=== PATIENT | male | born 1950 | race Caucasian/White ===

== ENCOUNTER 2024-03-06 09:43 | Inpatient (IN) | payer MEDICARE, SELFPAY ==
[2024-03-06] VITALS (12 sets, daily range): BP systolic 80–152; BP diastolic 42–117; PULSE 72–100; RESP 16–32; TEMP 36.6–37.2; O2SAT 88–100; BMI 41.5; BMI 46.9
--- NOTE | 2024-03-06 10:01 | EKG12_ITS ---
Test Reason : ABD PAIN Blood Pressure : / mmHG Vent. Rate : 073 BPM Atrial Rate : 073 BPM P-R Int : 160 ms QRS Dur : 090 ms QT Int : 374 ms P-R-T Axes : 024 -12 014 degrees QTc Int : 412 ms Normal sinus rhythm Low voltage QRS Possible Inferior infarct , age undetermined Abnormal ECG Confirmed by RACHEL GONZALES, MANUEL ([id number]), science editor MARU MO ([id number]) on 03/11/2024 10:04:20 AM Referred By: Confirmed By:JOELLE RAMOS MD
--- NOTE | 2024-03-06 10:20 | RAD_ITS ---
STUDY: X-RAY CHEST REASON FOR EXAM: Male, 73 years old. Hypoxia TECHNIQUE: Single AP portable view of the chest. COMPARISON: None. FINDINGS: EKG electrodes are seen. The lungs are clear and expanded. There is no demonstrated pleural abnormality. There is borderline cardiomegaly. Normal mediastinum and rob. Normal visualized pulmonary arteries. Normal visualized aortic arch and descending thoracic aorta. Normal visualized thoracic spine. 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 There is no demonstrated abnormality of the visualized soft tissue structures of the upper abdomen. RAD/Chest 1 View (Portable) IMPRESSION: Borderline cardiomegaly. No acute abnormality is seen. Electronically Signed: Alton Stephenson MD at 10:47 EDT ,
--- NOTE | 2024-03-06 10:20 | EDS_ITS ---
HPI History of Present Illness Chief Complaint: Abd Pain Informant: patient, family and EMS Narrative Narrative: 73-year-old male presenting from the emergency department with a chief complaint of fall. Patient states that last week he was experiencing diarrhea and he slipped and fell in his feces. He states he fell forward striking his face. No reported loss of consciousness. He was having significant bouts of diarrhea and weakness. The fall came just after the family did a welfare check after they could not get a hold of him because he was having diarrhea. Patient states that eventually over the weekend the diarrhea subsided and now he has not had a bowel movement since. He notes he also has not been urinating. He states he has been trying to eat meals consisting of pineapple apples and grapes. He states he ate that in an effort to hydrate himself. Patient states that his abdomen feels firmer than normal. 1 daughter stayed with him last night and noticed that his pulse ox was dropping into the 70s while sleeping and was around 89 while awake. It was better if he sat up. When asked if he is having abdominal pain the patient states I will call it diaphragm he cannot really elaborate more. He notes some soreness to the right hip and abrasion to the nose from the fall. PFSH [facility] Medical History Hypercholesterolemia Hypertension Morbid obesity Prediabetes Home Medications lisinopril 1 tab PO DAILY 03/06/24 [History Last Taken Unknown] metformin 1 tab PO BID 03/06/24 [History Last Taken Unknown] simvastatin 1 tab PO DAILY 03/06/24 [History Last Taken Unknown] Allergy/AdvReac Type Severity Reaction Status Date / Time No Known Allergies Allergy Verified 03/06/24 09:44 Family History (Updated 03/06/24 @ 14:[address] Aries Ryan DO) Other Alcoholism Surgical History no surgical history no surgical history Social History (Updated 03/06/24 @ 14:[address] Aries Ryan DO) Smoking Status: Never smoker substance use type: does not use ROS ROS ED ROS Narrative Generalized weakness Constitutional Constitutional ED: Denies chills or weight loss Eyes Eyes: Denies change in vision or diplopia ENT ENT ED: Denies ear pain, rhinorrhea or sore throat Cardiovascular Cardiovascular: Denies chest pain, orthopnea, palpitations or racing heartbeat Respiratory/Chest Respiratory/Chest: Reports other Details: Family reports that he seems more short of breath. ; Denies cough, dyspnea or orthopnea Gastrointestinal Gastrointestinal: Reports diarrhea and other Details: Abdominal distention ; Denies abdominal pain, nausea or vomiting Genitourinary Genitourinary ED: Reports other Details: No urination x 3 days ; Denies dysuria, hematuria or urinary frequency Musculoskeletal Musculoskeletal: Reports other Details: Right hip pain ; Denies arthralgias or myalgias Integumentary Reports other Details: Bridge of nose abrasion ; Denies abscess or rash Neurologic Neurologic: Denies headache(s) or weakness Psychiatric Psychiatric: Denies anxiety, depression, suicidal ideation or suicidal thoughts Endocrine Endocrinology: Denies polydipsia, polyphagia or polyuria Allergic/Immunologic Allergic/Immunologic ED: Denies mouth swelling, tongue swelling or urticaria EXAM Physical Exam Const Vital Signs: 03/06/24 09:45 03/06/24 09:50 03/06/24 09:50 Temperature 98.1 F 98.1 F 98.1 F Temperature Source Temporal Temporal Temporal Pulse Rate 76 79 79 Respiratory Rate 22 H 19 H 18 Blood Pressure 112/65 112/88 H 112/88 H Blood Pressure Mean 80 96 96 Pulse Ox 92 92 93 Oxygen Delivery Method Room Air Room Air Room Air 03/06/24 11:43 03/06/24 13:00 Temperature Temperature Source Pulse Rate 78 88 Respiratory Rate 18 16 Blood Pressure 112/55 L 148/72 H Blood Pressure Mean 74 97 Pulse Ox 96 99 Oxygen Delivery Method Room Air Positive well nourished, well developed and obese General Appearance ED: well developed Nutritional Appearance: obese HEENT Reports normocephalic and moist mucous membranes HEENT Narrative: Abrasion to the bridge of the nose Eyes PERRL and EOMs intact bilaterally Neck no lymphadenopathy, supple and no JVD Resp normal respiratory effort and clear to auscultation bilaterally Cardio regular rate, regular rhythm and no murmurs GI GI Narrative: Obesity limits the examination. There is an umbilical hernia that is soft and nontender Inspection: abdominal distention Palpation: soft Back/Spine no CVA tenderness and normal ROM Extremity Extremity Narrative: Patient reports some tenderness to palpation along the lateral aspect of the right hip General Extremety ED: Negative for edema General Extremity: Negative for edema Neuro oriented x3 and CN's II-XII intact bilaterally Sensorium / Orientation: alert Motor Exam: strength 5/5 throughout Psych mental status grossly normal Mood & Affect: Negative for depressed or tearful Skin no rashes or lesions noted and no wounds MDM MDM MDM Narrative Medical decision making narrative: Blood work was obtained shows a white count of 13 hemoglobin 13.9 sodium 132 potassium 5.1 creatinine substantially elevated 9.31 with a BUN of 146 glucose 123 AST of 111 ALT of 89 lipase of 46. I performed a bedside ultrasound which revealed a distended bladder up to the level of his umbilicus. Jeff catheter was placed. Urinalysis is 25-50 red cells no obvious infection. CT the brain showed no intracranial hemorrhage. My independent interpretation of the chest x-ray is no acute process. CT of the abdomen pelvis was obtained which demonstrates no acute intra-abdominal or injury. Diverticulosis noted intra- abdominal wall cellulitis/edema. This is not clinically fit the picture. Was noted to have distended renal collecting system bilaterally which is most likely from his obstructive uropathy which required a Jeff catheter. With the patient's hip pain I do not see an obvious hip fracture pelvic fracture proximal femur fracture on the CT. Patient received IV fluids. The plan is admission. History & Record Review Discussion w/independent historian: Patient and Family Lab Data Attestation: I reviewed the patient's lab results. Labs: Laboratory Results - last 24 hr 03/06/24 03/06/24 09:50 11:13 WBC 13.0 H RBC 5.05 Hgb 13.9 Hct 42.3 MCV 83.8 MCH 27.5 MCHC 32.9 RDW Std Deviation 47.5 H RDW Coeff of Eyal 15.6 H Plt Count 261 MPV 9.7 Immature Gran % (Auto) 2.200 H Neut % (Auto) 84.9 H Lymph % (Auto) 6.1 L Stanton % (Auto) 5.8 Eos % (Auto) 0.3 Baso % (Auto) 0.7 Absolute Neuts (auto) 11.0 H Absolute Lymphs (auto) 0.79 L Nucleated RBC % 0 Reactive Lymphocytes 1+ Sodium 132 L Potassium 5.1 Chloride 98 Carbon Dioxide 21.0 Anion Gap 13 BUN 146 H* Creatinine 9.31 H* Estim Creat Clear Calc 9.62 Est GFR (MDRD) Af Amer 7 L Est GFR (MDRD) Non-Af 6 L BUN/Creatinine Ratio 15.7 Glucose 123 H Calcium 8.2 L Phosphorus 4.7 Magnesium 2.8 H Total Bilirubin 0.80 Direct Bilirubin 0.32 H AST 111 H ALT 89 H Alkaline Phosphatase 86 Troponin I High Sens 12 B-Natriuretic Peptide 26.3 Total Protein 6.4 Albumin 2.3 L Globulin 4.1 Lipase 46 Urine Color Yellow Urine Clarity Clear Urine pH 5.0 Ur Specific [place] 1.020 Urine Protein 15 H Urine Glucose (UA) Normal Urine Ketones Negative Urine Occult Blood 250 H Urine Nitrite Negative Urine Bilirubin 1 H Urine Urobilinogen Normal Ur Leukocyte Esterase 25 H Urine RBC 10-25 SEEN Urine WBC 0-5 SEEN Ur Squamous Epith Cells 0 SEEN Urine Bacteria 0 SEEN Urine Mucus 0 SEEN Radiography Diagnostic Testing: Clinical Impression(s) from Imaging Studies Chest X-Ray 03/06/24 10:20 IMPRESSION: Borderline cardiomegaly. No acute abnormality is seen. Electronically Signed: Alton Stephenson MD at 10:47 EDT , Brain CT 03/06/24 10:38 IMPRESSION: No acute intracranial abnormality. Electronically Signed: Jesus Mendoza MD at 13:13 EDT , Abdomen/Pelvis CT 03/06/24 10:47 IMPRESSION: 1. No evidence of acute intra-abdominal or pelvic injury. 2. Distended renal collecting system bilaterally likely related to chronic bladder outlet obstruction. 3. Prostatomegaly. 4. Diverticulosis coli. 5. Intra-abdominal wall cellulitis/edema. Electronically Signed: Jesus Mendoza MD at 13:27 EDT , EKG Initial EKG: Attestation: I personally reviewed and interpreted this EKG as follows: Comments: Normal sinus rhythm ventricular rate of 73 bpm Discharge Plan Triage Chief Complaint: Abd Pain ED Provider: Jesús Robles Dx/Rx/DC Orders Prescriptions: No Action simvastatin 1 tab PO DAILY metformin 1 tab PO BID lisinopril 1 tab PO DAILY Primary Care Provider: Sean Valencia Referrals: Sean Valencia MD [Primary Care Provider] -
[2024-03-06 10:22] LABS: Absolute Lymphocyte Count 0.79 X10^3/uL (0.83-4.51); Basophil# 0.09 X10^3/uL; Basophil% 0.7 % (0-1); Eosinophil# 0.04 X10^3/uL; Eosinophils% 0.3 % (0-5); Hematocrit 42.3 % (40-54); Hemoglobin 13.9 g/dL (13.0-16.5); Lymphocyte # 0.79 X10^3/ul (0.83-4.51); Lymphocyte % 6.1 % (19-41); Mean Corp Hgb Conc 32.9 g/dL (32-36); Mean Corpuscular Hgb 27.5 pg (27.0-32.0); Mean Corpuscular Volume 83.8 fL (80-94); Mean Platelet Vol. 9.7 fl (6.2-12.0); Monocyte# 0.75 X10^3/uL; Monocyte% 5.8 % (0-10); NRBC Flagged by Analyzer 0 % (0-5); Neutrophil # 11.02 X10^3/uL (2.7-7.7); Neutrophil % 84.9 % (47-70); POSITIVE MORPHOLOGY YES; Platelet Count 261 K/mm3 (150-450); RBC Distribution Width CV 15.6 % (11.6-14.6); RBC Distribution Width SD 47.5 fl (35.1-43.9); Red Blood Count 5.05 M/mm3 (4.6-6.2)
[2024-03-06 10:23] LABS: Differential Indicated SCAN CRITERIA MET
--- NOTE | 2024-03-06 10:38 | CT_ITS ---
EXAM: CT HEAD WITHOUT INTRAVENOUS CONTRAST CLINICAL INDICATION: trauma TECHNIQUE: Multiple axial images were obtained of the head without intravenous contrast. This CT exam was performed using one or more of the following dose reduction techniques: automated exposure control, adjustment of the mA and/or kV according to patient size, and/or use of iterative reconstruction technique. COMPARISON: No relevant prior studies available. FINDINGS: BRAIN AND EXTRA-AXIAL SPACES: Normal. Normal brain attenuation. No intra- or extra-axial hemorrhage. No acute infarct. No intracranial mass or mass effect. There is preservation of the dale/white matter interface. Posterior fossa structures are unremarkable. Ventricles are appropriate for age. No hydrocephalus. Basal cisterns are patent. BONES/JOINTS: Normal calvarium. SINUSES: No acute sinusitis. MASTOID AIR CELLS: Normal. Clear. CT/Brain/Head without Contrast IMPRESSION: No acute intracranial abnormality. Electronically Signed: Jesus Mendoza MD at 13:13 EDT ,
[2024-03-06 10:39] LABS: AST(SGOT) 111 U/L (15-37); Alanine Aminotransfer ALT/SGPT 89 U/L (16-61); Albumin, Serum 2.3 g/dL (3.2-5.0); Alkaline Phosphatase 86 U/L (45-117); Anion Gap 13 (5-15); BUN 146 mg/dL (7-18); BUN/Creat Ratio 15.7 RATIO (10-20); Bilirubin, Direct 0.32 mg/dL (0.00-0.30); Calcium,Total 8.2 mg/dL (8.5-10.1); Chloride 98 mmol/L (98-107); Creatinine, Serum 9.31 mg/dL (0.70-1.30); EST Glomerular Filtration Rate 6 mL/min (>60); Est Glom Filt Rate - Afr Amer 7 mL/min (>60); Estimated Creatinine Clearance 9.62 ml/min; Globulin 4.1 g/dL (2.2-4.2); Glucose 123 mg/dL (74-106); Lipase 46 U/L (13-75); Potassium 5.1 mmol/L (3.5-5.1); Protein, Total 6.4 g/dL (6.4-8.2); Sodium Level 132 mmol/L (136-145); Troponin-I HS 12 pg/mL (3.0-78.0)
[2024-03-06 10:46] LABS: Reactive Lymphocyte 1+
--- NOTE | 2024-03-06 10:47 | CT_ITS ---
EXAM: CT ABDOMEN AND PELVIS WITHOUT INTRAVENOUS CONTRAST CLINICAL INDICATION: urinary retention acute renal failure TECHNIQUE: Helically acquired images were obtained of the abdomen and pelvis without intravenous contrast. This CT exam was performed using one or more of the following dose reduction techniques: automated exposure control, adjustment of the mA and/or kV according to patient size, and/or use of iterative reconstruction technique. COMPARISON: No relevant prior studies available. FINDINGS: LOWER THORAX: Normal. Lung bases are clear. No cardiomegaly. No pericardial effusion. ABDOMEN: LIVER: Normal. Homogeneous. GALLBLADDER AND BILE DUCTS: Gallbladder is contracted consistent with a nonfasting state. PANCREAS: Normal. No focal cystic mass. SPLEEN: Normal. Normal size without focal cystic or solid mass. ADRENALS: Normal. No nodules. KIDNEYS AND URETERS: Mild distention of the renal collecting system noted bilaterally which may be related to bladder outlet obstruction. STOMACH AND BOWEL: Fat stranding noted along the mesentery of the left colon of uncertain significance. Extensive diverticulosis of the colon without focal wall thickening. PELVIS: APPENDIX: Appendix is visualized and normal in appearance. BLADDER: Jeff catheter in place within a decompressed urinary bladder. REPRODUCTIVE: The prostate gland is enlarged measuring 6.0 x 5.4 x 6.2 cm with a volume of 105.3 ml. ABDOMEN and PELVIS: INTRAPERITONEAL SPACE: Normal. No free air. No evidence of hemoperitoneum. BONES/JOINTS: Prominent degenerative changes are noted within the spine. SOFT TISSUES: Mild edema of the subcutaneous tissues of the anterior abdomen which may represent cellulitis normal heart, contusion. 5 cm fat-containing umbilical hernia is noted. VASCULATURE: Normal. Abdominal aorta is non-dilated. LYMPH NODES: Normal. No enlarged lymph nodes. CT/Abdomen/Pelvis without Cont IMPRESSION: 1. No evidence of acute intra-abdominal or pelvic injury. 2. Distended renal collecting system bilaterally likely related to chronic bladder outlet obstruction. 3. Prostatomegaly. 4. Diverticulosis coli. 5. Intra-abdominal wall cellulitis/edema. Electronically Signed: Jesus Mendoza MD at 13:27 EDT ,
[2024-03-06 11:10] LABS: Magnesium 2.8 mg/dL (1.6-2.6); Phosphorus 4.7 mg/dL (2.5-4.9)
[2024-03-06 11:16] LABS: Bacteria 0 SEEN /hpf (None Seen); Mucous, Urine 0 SEEN /hpf (<or=2+); Squamous Epithelial Cells - UA 0 SEEN /hpf (0-5)
[2024-03-06 11:21] LABS: Color, Urine Yellow (Yellow); Glucose, Dipstick Normal (Normal); Ketone-Dipstick Negative (Negative); Leukocyte Esterase-Dipstick 25 /ul (Negative); Nitrite-Dipstick Negative (Negative); Occult Blood-Urine 250 /ul (Negative); Protein-Dipstick 15 mg/dl (Negative); Urine Clarity Clear (Clear); Urine Urobilinogen Normal (Normal)
[2024-03-06 11:32] LABS: Urine Bilirubin Dipstick 1 mg/dL (Negative)
[2024-03-06 11:34] LABS: Red Blood Cells-Urine 10-25 SEEN /hpf (0-5); White Blood Cells 0-5 SEEN /hpf (0-5)
[2024-03-06 11:59] LABS: BNP,B-Type NATRIURETIC PEPTIDE 26.3 pg/mL (0-100)
--- NOTE | 2024-03-06 14:02 | NURSING ---
MED SURG INGA ACUTE RENAL FAILURE, OBSTRUCTIVE UROPOATHY
[2024-03-06] MEDS: 0.9% Normal Saline (1000mL) 1,000 ML 200 ML IV (14:07)
--- NOTE | 2024-03-06 14:14 | HP.PCM.HOS_ITS ---
[facility] - General General Date of Service: 03/06/24 Chief Complaint: Fall [facility] Narrative RISHI STRATTON, is a 73 M who presents with weakness. Last Monday, patient was having diarrhea, slipped on his feces and has been weak. Since this weekend, he has not urinated. He has had increased abdominal pain, shortness of breath due to the abdominal pain. With him being profoundly weak, the family sent him to the emergency room. In the emergency room, patient was noted to have a creatinine of 9.3, no baseline available in [facility]. Patient is not dialysis dependent. He does have reported history of BPH in the past. Patient did have a Jeff catheter placed after it was noted that he had profound collecting system dilation and BPH. Patient stated that after the catheter was placed, he had improved abdominal pain and shortness of breath. [facility] Medical History Hypercholesterolemia Hypertension Morbid obesity Prediabetes Home Medications lisinopril 1 tab PO DAILY 03/06/24 [History Last Taken Unknown] metformin 1 tab PO BID 03/06/24 [History Last Taken Unknown] simvastatin 1 tab PO DAILY 03/06/24 [History Last Taken Unknown] Allergy/AdvReac Type Severity Reaction Status Date / Time No Known Allergies Allergy Verified 03/06/24 09:44 Family History (Updated 03/06/24 @ 14:[address] Aries Ryan DO) Other Alcoholism Surgical History no surgical history Social History (Updated 03/06/24 @ 14:[address] Aries Ryan DO) Smoking Status: Never smoker substance use type: does not use ROS ROS Narrative Daughters present in the notes that he has periods where he has apneic episodes while he sleeps and his pulse ox will drop down into the 70s during these periods. He has never been diagnosed with sleep apnea. Sore throat. Did have some transient fever and chills. All review of systems were negative except as mentioned above in the history of present illness and the other review of systems. Vital Signs Vital Signs Vital Signs: 03/06/24 09:45 03/06/24 09:50 03/06/24 09:50 Temperature 36.7 C 36.7 C 36.7 C Temperature Source Temporal Temporal Temporal Pulse Rate 76 79 79 Respiratory Rate 22 H 19 H 18 Blood Pressure 112/65 112/88 H 112/88 H Blood Pressure Mean 80 96 96 Pulse Ox 92 92 93 Oxygen Delivery Method Room Air Room Air Room Air 03/06/24 11:43 03/06/24 13:00 Temperature Temperature Source Pulse Rate 78 88 Respiratory Rate 18 16 Blood Pressure 112/55 L 148/72 H Blood Pressure Mean 74 97 Pulse Ox 96 99 Oxygen Delivery Method Room Air Weight Weight: 127.5 kg Body Mass Index (BMI) 41.5 Physical Exam Const alert and no apparent distress Constitutional Narrative: Pleasant. Nontoxic. No respiratory distress no conversational dyspnea. HEENT normocephalic and head/scalp atraumatic HEENT Narrative: Mucous membranes moist. Mallampati 4. Eyes Eyes Narrative: No icterus. Neck no lymphadenopathy Neck Narrative: No thyromegaly Resp normal respiratory effort, no retractions, no use of accessory muscles and clear to auscultation bilaterally Cardio regular rate, regular rhythm, S1 normal heart sound and S2 normal heart sound GI normal to inspection, nondistended, normoactive bowel sounds, soft to palpation, non-tender and non-distended Extremity normal to inspection and full ROM Extremity Narrative: No sore over the right hip nor any skin changes. Neuro moves all extremities Sensorium / Orientation: awake and alert Psych affect normal Results Lab / Micro Data Attestation: I reviewed the patient's lab results. 03/06/24 09:50 03/06/24 09:50 Labs: Laboratory Results - last 24 hr 03/06/24 09:50: WBC 13.0 H, RBC 5.05, Hgb 13.9, Hct 42.3, MCV 83.8, MCH 27.5, MCHC 32.9, RDW Std Deviation 47.5 H, RDW Coeff of Eyal 15.6 H, Plt Count 261, MPV 9.7, Immature Gran % (Auto) 2.200 H, Neut % (Auto) 84.9 H, Lymph % (Auto) 6.1 L, [place] % (Auto) 5.8, Eos % (Auto) 0.3, Baso % (Auto) 0.7, Absolute Neuts (auto) 11.0 H, Absolute Lymphs (auto) 0.79 L, Nucleated RBC % 0, Reactive Lymphocytes 1+, Sodium 132 L, Potassium 5.1, Chloride 98, Carbon Dioxide 21.0, Anion Gap 13, BUN 146 H*, Creatinine 9.31 H*, Estim Creat Clear Calc 9.62, Est GFR (MDRD) Af Amer 7 L, Est GFR (MDRD) Non-Af 6 L, BUN/Creatinine Ratio 15.7, Glucose 123 H, Calcium 8.2 L, Phosphorus 4.7, Magnesium 2.8 H, Total Bilirubin 0.80, Direct Bilirubin 0.32 H, AST 111 H, ALT 89 H, Alkaline Phosphatase 86, Troponin I High Sens 12, B-Natriuretic Peptide 26.3, Total Protein 6.4, Albumin 2.3 L, Globulin 4.1, Lipase 46 03/06/24 11:13: Urine Color Yellow, Urine Clarity Clear, Urine pH 5.0, Ur Specific [place] 1.020, Urine Protein 15 H, Urine Glucose (UA) Normal, Urine Ketones Negative, Urine Occult Blood 250 H, Urine Nitrite Negative, Urine Bilirubin 1 H, Urine Urobilinogen Normal, Ur Leukocyte Esterase 25 H, Urine RBC 10-25 SEEN, Urine WBC 0-5 SEEN, Ur Squamous Epith Cells 0 SEEN, Urine Bacteria 0 SEEN, Urine Mucus 0 SEEN EKG Initial EKG: Attestation: I personally reviewed and interpreted this EKG as follows: Prior EKG tracings: available for review EKG Rhythm Intrepretation: Sinus Rhythm Imaging Radiology Impression Chest X-Ray 03/06/24 10:20 IMPRESSION: Borderline cardiomegaly. No acute abnormality is seen. Electronically Signed: Alton Stephenson MD at 10:47 EDT , Brain CT 03/06/24 10:38 IMPRESSION: No acute intracranial abnormality. Electronically Signed: Jesus Mendoza MD at 13:13 EDT , Abdomen/Pelvis CT 03/06/24 10:47 IMPRESSION: 1. No evidence of acute intra-abdominal or pelvic injury. 2. Distended renal collecting system bilaterally likely related to chronic bladder outlet obstruction. 3. Prostatomegaly. 4. Diverticulosis coli. 5. Intra-abdominal wall cellulitis/edema. Electronically Signed: Jesus Mendoza MD at 13:27 EDT , Assessment & Plan Assessment/Plan (1) JOSE C (acute kidney injury): (2) Urinary retention: (3) Debility: PLAN: Plan JOSE C * Suspect postobstructive due to BPH * Jeff catheter placed in emergency room and patient had had relief of his urinary obstruction. Patient stated that abdominal pain and shortness of breath improved thereafter. * Will give the patient IV fluids * Follow-up labs in the morning * consider nephrology consultation if does get worse. * Hold lisinopril and metformin Urinary retention * Likely secondary to BPH * Start tamsulosin * Continue Jeff catheter * Given the profound urinary obstruction the patient had I would be reluctant to remove the catheter while he was here even with the tamsulosin. But will def er to the oncoming physician at their discretion. * Certainly follow-up with urology as outpatient Debility * Multifactorial due to recent events with JOSE C, diarrhea as well as low progressive debility overall. * PT OT evaluate and treat * Case management to assist on discharge * discussed with patient as daughter could not arrange for him going home with outpatient therapy to home care versus [facility] facility. * Patient did fall and is having right hip pain. Will check x-ray. Chronic conditions * Hypertension: Hold lisinopril given JOSE C * Diabetes mellitus type 2: Check an A1c. Hold metformin given JOSE C. Sign scale insulin. * Hyperlipidemia: Resume statin once we get a dose that he takes at home. * Suspected JULIO: Advised outpatient follow-up with pulmonary to have a formal sleep assessment VTE prophylaxis with subcu heparin CODE STATUS: Addressed with the patient. Patient was to be full code. Charges/Coding Visit Charges Inpatient E&M: 54354 Init Hosp L3
--- NOTE | 2024-03-06 14:40 | RAD_ITS ---
STUDY: X-RAY - PELVIS AND RIGHT HIP REASON FOR EXAM: Male, 73 years old. Right hip pain TECHNIQUE: 3 views of the pelvis and hip. COMPARISON: None. FINDINGS: There is a non-specific bowel gas pattern. Normal visualized soft tissue structures. The general changes of the lower lumbar spine. Normal bilateral iliac wings, sacroiliac joints and visualized sacrum. Normal bilateral superior and inferior pubic rami. Normal pubic symphysis. Normal bilateral ischial tuberosities. Normal visualized femoral head. Normal acetabulum. Normal hip joint. RAD/HIP, UNI W/ Pelvis 2-3 Views IMPRESSION: No acute abnormality is seen. Electronically Signed: Alton Stephenson MD at 14:56 EDT ,
--- NOTE | 2024-03-06 15:48 | ED.RN ---
pt's daughter is concerned that pt is shivering, initial oral temp 98.0 and warm blankets applied for comfort for pt. pt has fluids infusing at 200cc/hr, pt's daughter alerted this nurse because pt's pulse ox was 0 and finger pulse ox fell off pt's finger, recheck temp orally 98.3. pulse ox 91%room air.
[2024-03-06 17:09] LABS: Bedside Glucose 109 mg/dL (74-106)
[2024-03-06] MEDS: 0.9% Normal Saline (1000mL) 1,000 ML 150 ML IV (17:21)
[2024-03-06] MEDS: Tamsulosin HCl 0.4 MG Capsule PO (17:23)
[2024-03-06 17:57] LABS: Hemoglobin A1c 6.8 % (3.8-5.6)
--- NOTE | 2024-03-06 23:05 | RAD_ITS ---
EXAM: XR CHEST, 1 VIEW CLINICAL INDICATION: worsening hypoxia TECHNIQUE: Frontal view of the chest. 11:14 PM. COMPARISON: Portable chest radiograph of this same date, 10:21 AM. Abdomen/pelvis CT of this date. FINDINGS: Lordotic positioning. LUNGS AND PLEURAL SPACES: Limited degree of inspiration. Increased density and an air bronchogram noted within the retrocardiac portion of the left lower lung. Right lung is clear. No pneumothorax. No effusion. HEART: Upper normal heart size. Supine patient positioning accentuates the upper lobe pulmonary vessels. MEDIASTINUM: Stable mild elongation of the thoracic aorta. BONES/JOINTS: Degenerative narrowing of both glenohumeral joints. Lower cervical degenerative disc space narrowing. Lower thoracic degenerative spurring. SOFT TISSUES: Unremarkable. RAD/Chest 1 View (Portable) IMPRESSION: Increased density within the retrocardiac portion of the left lower lung, most likely due to superimposed vascular shadows accentuated by positioning and technique, as no retrocardiac airspace disease was seen in this area on preceding CT. Developing pneumonia felt less likely. Follow-up PA and lateral views may be of benefit for further evaluation, when the patient is clinically stable. Electronically Signed: Gal Palma MD at 0:44 EDT ,
--- NOTE | 2024-03-06 23:05 | RAD_ITS ---
EXAM: XR ABDOMEN, 1 VIEW CLINICAL INDICATION: worsening abd distension TECHNIQUE: Frontal supine view of the abdomen/pelvis. COMPARISON: Abdomen pelvis CT of this date. FINDINGS: GASTROINTESTINAL TRACT: A moderate amount gas is noted throughout the colon; the colonic haustral folds within the ascending colon appears thickened, suggestive of a colitis. No distended large or small bowel loops are identified. No pneumatosis is seen. ORGANS: Unremarkable as visualized. No organomegaly. No abnormal calcifications. BONES/JOINTS: Lumbar levoscoliosis is present with extensive lower lumbar degenerative disc disease and facet arthritis. SOFT TISSUES: No acute pathology. RAD/Abdomen Single View (Portable) IMPRESSION: No evidence for large or small bowel obstruction. Gas within the ascending colon outlines haustral folds which appear asymmetrically thickened, suggestive of a right-sided colitis. Electronically Signed: Gal Palma MD at 0:37 EDT ,
[2024-03-06] MEDS: Heparin Injection (Vial) 5,000 UNIT/ML VIAL 5000 UNIT SC (23:44)
[2024-03-07] VITALS (34 sets, daily range): BP systolic 79–135; BP diastolic 30–90; PULSE 66–111; RESP 18–38; TEMP 36.6–37.5; O2SAT 91–100; BMI 47.5
[2024-03-07 00:04] LABS: Bedside Glucose 108 mg/dL (74-106)
--- NOTE | 2024-03-07 00:52 | NURSING ---
NURSING supv aware of low bp and dr order to move to unit will get bed assignment for pt
[2024-03-07] MEDS: Vancomycin HCl 2,000 MG in 0.9% Normal Saline (500mL Bag) 500 ML 250 MG IV (00:56)
--- NOTE | 2024-03-07 01:09 | PCM.RX.CS ---
Consult Antibiotic Management Pharmacy has been consulted to manage selected antibiotic: Vancomycin Type of Intervention Type of Consult: New start Labs Labs: Sodium 132 mmol/L (136-145) L 03/06/24 09:50 Potassium 5.1 mmol/L (3.5-5.1) 03/06/24 09:50 Chloride 98 mmol/L (98-107) 03/06/24 09:50 Carbon Dioxide 21.0 mmol/L (21.0-32.0) 03/06/24 09:50 Anion Gap 13 (5-15) 03/06/24 09:50 BUN 146 mg/dL (7-18) H* 03/06/24 09:50 Creatinine 9.31 mg/dL (0.70-1.30) H* 03/06/24 09:50 Est GFR (MDRD) Af Amer 7 mL/min (>60) L 03/06/24 09:50 Est GFR (MDRD) Non-Af 6 mL/min (>60) L 03/06/24 09:50 BUN/Creatinine Ratio 15.7 RATIO (10-20) 03/06/24 09:50 Glucose 123 mg/dL (74-106) H 03/06/24 09:50 Dosing Weight Weight used for dosin kg Estimated Creatinine Clearance Estimated Creatinine Clearance: 9.6 Goal Trough Goal Trough: 15-20 mcg/mL Pharmacy Plan for Drug Dosing Pharmacy Plan for Drug Dosing: Vancomycin IV was initiated with a 2000mg loading dose. Since his current CrCl< 20 (at 9.6), further dosing will be determined by a random vanco level to be drawn 03/08/24 with a.m. labs. Pharmacy Service will continue to monitor and adjust dosing as required. Follow-Up Labs Follow-Up Labs: Trough: Vancomycin (random) Date/Time Labs Ordered Labs to be done on [date and time ordered]: 03/08/24 @0600 random
[2024-03-07 01:26] LABS: Hemoglobin 12.2 g/dL (13.0-16.5); Mean Corpuscular Hgb 28.2 pg (27.0-32.0); Mean Corpuscular Volume 85.6 fL (80-94); Mean Platelet Vol. 10.2 fl (6.2-12.0); Platelet Count 251 K/mm3 (150-450); RBC Distribution Width CV 15.6 % (11.6-14.6); RBC Distribution Width SD 49.1 fl (35.1-43.9); Red Blood Count 4.32 M/mm3 (4.6-6.2); White Blood Count 8.2 K/mm3 (4.4-11.0)
--- NOTE | 2024-03-07 01:26 | NURSING ---
pt okay to call daughter to notify about transfer, Called and talked to Lynette (pt's daughter) to notify pt being transfer to ICU to monitor closely.
--- NOTE | 2024-03-07 01:42 | NURSING ---
report given to Iwona LAYNE
[2024-03-07 01:47] LABS: Anion Gap 8 (5-15); BUN 135 mg/dL (7-18); BUN/Creat Ratio 24.1 RATIO (10-20); Chloride 103 mmol/L (98-107); EST Glomerular Filtration Rate 11 mL/min (>60); Est Glom Filt Rate - Afr Amer 13 mL/min (>60); Estimated Creatinine Clearance 17.12 ml/min; Glucose 114 mg/dL (74-106); Potassium 4.7 mmol/L (3.5-5.1); Sodium Level 135 mmol/L (136-145)
[2024-03-07 01:51] LABS: Lactic Acid 1.8 mmol/L (0.4-1.9)
--- NOTE | 2024-03-07 02:59 | PCM.HOSP.N ---
Hospitalist Note Patient was admitted on the afternoon of 03/06 for worsening weakness and severe JOSE C with creatinine of 9.3 and uremia with BUN 146. Had known history of BPH and had Jeff catheter placed in the ED with significant urine output noted. Imaging showed profound collecting system dilation and BPH. Patient was started on IV fluids and admitted to [facility]. I was notified by nursing staff around 22:00 that patient's BP had dropped to the low 80s over 50s. He was still receiving maintenance IV fluids at that time. Nurse noted that he seemed more confused and at the beginning of the shift. I evaluated the patient at the bedside. He was sitting up in bed and appeared fairly comfortable. He was breathing comfortably on 3 L nasal cannula at rest. Was making appropriate eye contact with me and knew that he was at [facility] and that it was February 2024. He also knew that he lives at home by himself. He knew that he came to the hospital generally because he was feeling weaker but could not expand on that further. He also stopped midsentence multiple times and closes eyes and lost track of what he was talking about. He generally denied any abdominal pain or discomfort. Denied any fevers or chills. On exam, he did have mild wheezing in his upper airways as well as mild crackles noted in the mid to lower lungs. He also had mild to moderate abdominal distention and abdomen felt somewhat hard, though it was completely nontender to palpation. I obtained stat labs, stat chest x-ray and KUB at that time. Labs showed that his JOSE C was significantly improving with creatinine down to 5.60, though BUN remains elevated at 135. Lactate was normal at 1.8. CBC was normal. Chest x-ray appeared fairly benign. KUB showed no evidence for large or small bowel obstruction but did show gas within the ascending colon outlines that appear asymmetrically thickened suggestive of a right-sided colitis. Blood cultures were obtained and patient was started on IV vancomycin and Zosyn for broad-spectrum coverage for now. Patient continued to have low BP readings, with lowest of 79/47 despite fluid resuscitation. He was also noted to have a low-grade temperature at that time. Had concern about giving further IV fluids as his respiratory status was already starting to slightly worsen and he had very minimal urine output. So, decision was made to transfer patient to the ICU for further monitoring. On arrival to the ICU, patient was starting to appear improved and blood pressure was noted to be around 120/50 by nursing staff. Tool Builder consult placed. Will continue broad-spectrum antibiotics for now, follow up blood cultures and urine culture.
[2024-03-07] MEDS: Piperacil/Tazobactam 3.375 GM in 0.9% Normal Saline (50mL MB+) 50 ML IV ×3 (03:53→21:42)
[2024-03-07] MEDS: Heparin Injection (Vial) 5,000 UNIT/ML VIAL 5000 UNIT SC ×3 (05:37→21:38)
[2024-03-07 05:51] LABS: Absolute Lymphocyte Count 0.42 X10^3/uL (0.83-4.51); Absolute Neutrophil Count 7.5 X10^3/uL (2.0-7.7); Basophil# 0.06 X10^3/uL; Basophil% 0.7 % (0-1); Eosinophil# 0.03 X10^3/uL; Eosinophils% 0.3 % (0-5); Hematocrit 34.8 % (40-54); Hemoglobin 11.5 g/dL (13.0-16.5); Lymphocyte # 0.42 X10^3/ul (0.83-4.51); Lymphocyte % 4.6 % (19-41); Mean Corpuscular Hgb 27.6 pg (27.0-32.0); Mean Corpuscular Volume 83.5 fL (80-94); Mean Platelet Vol. 9.9 fl (6.2-12.0); Monocyte# 0.74 X10^3/uL; Monocyte% 8.1 % (0-10); NRBC Flagged by Analyzer 0 % (0-5); Neutrophil # 7.49 X10^3/uL (2.7-7.7); Neutrophil % 82.6 % (47-70); POSITIVE DIFFERENTIAL YES; Platelet Count 232 K/mm3 (150-450); RBC Distribution Width CV 15.8 % (11.6-14.6); RBC Distribution Width SD 47.5 fl (35.1-43.9); Red Blood Count 4.17 M/mm3 (4.6-6.2); White Blood Count 9.1 K/mm3 (4.4-11.0)
[2024-03-07 06:12] LABS: Anion Gap 8 (5-15); BUN 129 mg/dL (7-18); BUN/Creat Ratio 28.3 RATIO (10-20); Calcium,Total 7.7 mg/dL (8.5-10.1); Chloride 106 mmol/L (98-107); Creatinine, Serum 4.56 mg/dL (0.70-1.30); EST Glomerular Filtration Rate 14 mL/min (>60); Est Glom Filt Rate - Afr Amer 16 mL/min (>60); Estimated Creatinine Clearance 21.15 ml/min; Glucose 124 mg/dL (74-106); Potassium 4.6 mmol/L (3.5-5.1); Sodium Level 137 mmol/L (136-145)
--- NOTE | 2024-03-07 06:57 | PN.HOSP_ITS ---
Reason for Visit Reason for Visit: Fall Subjective Subjective Patient is a 73-year-old male who presented to the emergency department at [facility] on 03/06/2024 after having a fall. Patient reported that last week he was having some diarrhea and slipped and fell on feces. At that time he fell forward striking his face. He denied any loss of consciousness but has been having some severe bouts of diarrhea and weakness. Patient reported that eventually over the weekend the diarrhea subsided and he has not had a bowel movement since the weekend. He also noted that his urine output had been decreasing. He indicated he been trying to eat meals consisting of pineapple, apples, and grapes in an effort to hydrate himself but he felt that his abdomen felt firmer than normal. One of his daughter stayed with him the night prior to presentation and noted that his pulse ox was dropping in the 70s while he was sleeping and was around 89 while he was awake. It was better when he sat up. He felt that his shortness of breath sensation was related to his abdominal issues. Vital signs on presentation showed temperature of 36.7, heart rate was 76, blood pressure was 112/65, respiratory was 22 and oxygen saturations were 92% on room air. His CBC showed a leukocytosis with a white count of 13 and a left shift with an 84.9% neutrophilia but was otherwise unremarkable. His chemistry panel was markedly abnormal with a sodium of 132, BUN of 146 and a serum creatinine of 9.31. His baseline serum creatinine is unknown. An A1c was obtained as he was hyperglycemic on presentation and it was 6.8. It does appear that he is diabetic and takes metformin as an outpatient. His liver enzymes are mildly elevated with an AST of 111 and ALT of 89. Bilirubin was normal at that time. His UA showed 250 of occult blood 25 leuk esterase with no white cells or bacteria. He was initially placed on PCU and started on IV fluids after Jeff was placed. It did seem that he had significant urinary obstruction and his abdominal pain improved after. His lisinopril and metformin were placed on hold due to his renal dysfunction on presentation. Through the night the attorney was called due to blood pressures in the 80s systolic and 50s diastolic. Nursing thought he was more confused than he was at the beginning of the shift as well. He was requiring 3 L of nasal cannula and a lactate was obtained and found to be normal. His renal function was improving as well. Blood cultures were obtained due to the hypotension and was started on IV and vancomycin and Zosyn and transferred to the ICU due to persistent hypotension. After arriving to the ICU his blood pressures did start to improve without the utilization of pressors. Patient has no specific complaints today. When asked him about his abdominal pain he states that is a hard question to answer and was never able to give me a definitive answer. He is mildly confused but oriented to self and place with mild confusion on time. He was able to tell me the year but not the month. Discussed with nursing and they state that he is notably hypoxic when he is sleeping and has apneic events. I did ask the patient if he is ever been diagnosed with sleep apnea and he said yes but he is not compliant with CPAP and was not able to tell me why. Objective Data Objective Data Vital Signs: Vital Signs Temp Pulse Resp BP Pulse Ox O2 Del Method O2 Flow Rate 98.9 F 72 31 H 95/50 L 93 Nasal Cannula 4 03/07/24 04:00 03/07/24 06:00 03/07/24 06:00 03/07/24 06:00 03/07/24 06:00 03/07/24 06:00 03/07/24 06:00 Oxygen Flow Rate (L/min) 4 Oxygen Delivery Method Nasal Cannula Weight: 145.5 kg Body Mass Index (BMI) 47.5 Intake & Output: Intake and Output for Last 24 Hours 03/05/24 03/06/24 03/07/24 23:59 23:59 23:59 Intake Total 1200 / 1200 1540 / 1540 Output Total 450 / 850 1000 / 1000 Balance 750 / 350 540 / 540 Lab / Micro Data 03/07/24 07:50 03/07/24 05:40 Labs: Laboratory Results - last 24 hr 03/06/24 09:50: WBC 13.0 H, RBC 5.05, Hgb 13.9, Hct 42.3, MCV 83.8, MCH 27.5, MCHC 32.9, RDW Std Deviation 47.5 H, RDW Coeff of Eyal 15.6 H, Plt Count 261, MPV 9.7, Immature Gran % (Auto) 2.200 H, Neut % (Auto) 84.9 H, Lymph % (Auto) 6.1 L, [place] % (Auto) 5.8, Eos % (Auto) 0.3, Baso % (Auto) 0.7, Absolute Neuts (auto) 11.0 H, Absolute Lymphs (auto) 0.79 L, Nucleated RBC % 0, Reactive Lymphocytes 1+, Sodium 132 L, Potassium 5.1, Chloride 98, Carbon Dioxide 21.0, Anion Gap 13, BUN 146 H*, Creatinine 9.31 H*, Estim Creat Clear Calc 9.62, Est GFR (MDRD) Af Amer 7 L, Est GFR (MDRD) Non-Af 6 L, BUN/Creatinine Ratio 15.7, Glucose 123 H, Calcium 8.2 L, Phosphorus 4.7, Magnesium 2.8 H, Total Bilirubin 0.80, Direct Bilirubin 0.32 H, AST 111 H, ALT 89 H, Alkaline Phosphatase 86, Troponin I High Sens 12, B-Natriuretic Peptide 26.3, Total Protein 6.4, Albumin 2.3 L, Globulin 4.1, Lipase 46 03/06/24 11:13: Urine Color Yellow, Urine Clarity Clear, Urine pH 5.0, Ur Specific [place] 1.020, Urine Protein 15 H, Urine Glucose (UA) Normal, Urine Ketones Negative, Urine Occult Blood 250 H, Urine Nitrite Negative, Urine Bilirubin 1 H, Urine Urobilinogen Normal, Ur Leukocyte Esterase 25 H, Urine RBC 10-25 SEEN, Urine WBC 0-5 SEEN, Ur Squamous Epith Cells 0 SEEN, Urine Bacteria 0 SEEN, Urine Mucus 0 SEEN 03/06/24 16:51: POC Glucose 109 H 03/06/24 17:08: Hemoglobin A1c 6.8 H 03/06/24 23:44: POC Glucose 108 H 03/07/24 01:08: WBC 8.2, RBC 4.32 L, Hgb 12.2 L, Hct 37.0 L, MCV 85.6, MCH 28.2, MCHC 33.0, RDW Std Deviation 49.1 H, RDW Coeff of Eyal 15.6 H, Plt Count 251, MPV 10.2, Sodium 135 L, Potassium 4.7, Chloride 103, Carbon Dioxide 24.0, Anion Gap 8, BUN 135 H*, Creatinine 5.60 H, Estim Creat Clear Calc 17.12, Est GFR (MDRD) Af Amer 13 L, Est GFR (MDRD) Non-Af 11 L, BUN/Creatinine Ratio 24.1 H, Glucose 114 H, Lactic Acid 1.8, Calcium 8.0 L 03/07/24 05:40: WBC 9.1, RBC 4.17 L, Hgb 11.5 L, Hct 34.8 L, MCV 83.5, MCH 27.6, MCHC 33.0, RDW Std Deviation 47.5 H, RDW Coeff of Eyal 15.8 H, Plt Count 232, MPV 9.9, Immature Gran % (Auto) 3.700 H, Neut % (Auto) 82.6 H, Lymph % (Auto) 4.6 L, [place] % (Auto) 8.1, Eos % (Auto) 0.3, Baso % (Auto) 0.7, Absolute Neuts (auto) 7.5, Absolute Lymphs (auto) 0.42 L, Nucleated RBC % 0, Sodium 137, Potassium 4.6, Chloride 106, Carbon Dioxide 23.0, Anion Gap 8, BUN 129 H*, Creatinine 4.56 H, Estim Creat Clear Calc 21.15, Est GFR (MDRD) Af Amer 16 L, Est GFR (MDRD) Non-Af 14 L, BUN/Creatinine Ratio 28.3 H, Glucose 124 H, Calcium 7.7 L Radiography Diagnostic Testing: Radiology Impression Chest X-Ray 03/06/24 10:20 IMPRESSION: Borderline cardiomegaly. No acute abnormality is seen. Electronically Signed: Alton Stephenson MD at 10:47 EDT , Brain CT 03/06/24 10:38 IMPRESSION: No acute intracranial abnormality. Electronically Signed: Jesus Mendoza MD at 13:13 EDT , Abdomen/Pelvis CT 03/06/24 10:47 IMPRESSION: 1. No evidence of acute intra-abdominal or pelvic injury. 2. Distended renal collecting system bilaterally likely related to chronic bladder outlet obstruction. 3. Prostatomegaly. 4. Diverticulosis coli. 5. Intra-abdominal wall cellulitis/edema. Electronically Signed: Jesus Mendoza MD at 13:27 EDT , Hip/Pelvis X-Ray 03/06/24 14:40 IMPRESSION: No acute abnormality is seen. Electronically Signed: Alton Stephenson MD at 14:56 EDT , Chest X-Ray 03/06/24 23:05 IMPRESSION: Increased density within the retrocardiac portion of the left lower lung, most likely due to superimposed vascular shadows accentuated by positioning and technique, as no retrocardiac airspace disease was seen in this area on preceding CT. Developing pneumonia felt less likely. Follow-up PA and lateral views may be of benefit for further evaluation, when the patient is clinically stable. Electronically Signed: Gal Palma MD at 0:44 EDT , KUB X-Ray 03/06/24 23:05 IMPRESSION: No evidence for large or small bowel obstruction. Gas within the ascending colon outlines haustral folds which appear asymmetrically thickened, suggestive of a right-sided colitis. Electronically Signed: Gal Palma MD at 0:37 EDT , Physical Exam Const alert, no apparent distress and well nourished; Negative for oriented x3, average body habitus or healthy appearing Constitutional Narrative: Morbidly obese, white male, lying in bed, nursing at bedside, patient appears ill but not uncomfortable HEENT head/scalp atraumatic HEENT Narrative: Mucous membranes are markedly dry, dentition is fair for age, Mallampati is 3-4, no thrush Head and Scalp: normocephalic Eyes PERRL, EOMs intact bilaterally and conjunctivae normal Eyes Narrative: No scleral icterus Neck no lymphadenopathy and supple Neck Narrative: Neck is short and thick, trachea midline, no thyroid enlargement noted Resp normal respiratory effort, no retractions, no use of accessory muscles and clear to auscultation bilaterally Resp Narrative: Diminished at bases bilaterally but otherwise clear, mild tachypnea Cardio regular rate, regular rhythm, S1 normal heart sound, S2 normal heart sound, no murmurs, no rub, no gallops and no clicks GI normal to inspection, nondistended, normoactive bowel sounds, soft to palpation and non-tender GI Narrative: Large protuberant abdomen Extremity no clubbing, cyanosis or edema Extremity Narrative: Pedal and radial pulses are 2+ bilaterally Skin Skin Narrative: No significant rashes noted, few scattered ecchymosis, lips are dry, bilateral lower extremities with signs of chronic venous stasis Neuro oriented x3, moves all extremities and no focal motor deficits Neuro Narrative: Marked generalized weakness noted at this time Speech: speech normal Psych Psych Narrative: Affect is flat but expected for his current condition, patient appears extremely fatigued but interacts appropriately and is very pleasant Assessment & Plan Assessment/Plan (1) Hypotension: (2) Acute bilateral obstructive uropathy: (3) Fall: (4) Acute renal failure: (5) Acute pain of right hip: (6) Anemia: (7) Hypoxia: PLAN: Plan Hypotension -Etiology is not exactly clear at this time -Lactate was normal while he was hypotensive -Patient does appear to be fairly volume depleted -Cultures obtained -UA on presentation did not appear to be infected as it had no white cells or bacteria -CT of the abdomen pelvis shows some stranding and KUB is suggestive of possible colitis -Continue vancomycin and Zosyn for now -Check MRSA PCR -Currently not requiring any pressors but will need to monitor closely as his blood pressures are still on the soft side JOSE C -Baseline serum creatinine is unknown -Serum creatinine on presentation was 9.31 -Current creatinine down to 4.56 -Continue to hold metformin and lisinopril -Try to maintain an MAP of 65 or greater -Check urine sodium and creatinine -CT with no significant hydronephrosis after Jeff was placed -Suspect this may be multifactorial with obstruction/dehydration/and medications and hypotension may play a role in this as well -Continue to avoid nephrotoxins -Hold on IV fluids for now with worsening respiratory status Hypoxia -No infiltrate noted on CT -Chest x-ray overtly unremarkable -Check strep pneumo and Legionella antigens -Check respiratory viral panel -Check COVID/flu/RSV -Check BNP and if elevated will obtain an echocardiogram -Patient was given a considerable amount of fluids with his renal failure -Requiring 3 L -Not oxygen dependent at baseline--> seems to only need this while he is sleeping but will need to continue to monitor -Wean as able -Also suspect patient has obstructive sleep apnea as he does tend to desaturate nocturnally--> will recommend outpatient polysomnography after discharge Anemia -It appears the patient was probably hemoconcentrated on presentation -Has gotten fluids but drop is to 11.2 -Check iron studies next-check ferritin -Check guaiac stool -Cycle hemoglobin -His numbers are little more concerning due to his BUN/creatinine ratio being fairly considerable despite his improvement in his creatinine 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 -Continue Jeff -Add Proscar -Continue Flomax -Will need to maintain Jeff at discharge and follow-up as an outpatient with urology Toxic/metabolic encephalopathy -Likely related to uremia and hypoxia -Should improve with improvement of the above underlying conditions -CT brain done on admission and showed no acute intracranial abnormalities. Generalized weakness/fall/hip pain -Imaging was performed and does not show any acute fractures -PT/OT consultation -senior manager mergers & acquisitions/social work consultation to assist with discharge planning Hypertension -Hold lisinopril due to JOSE C -Hold home amlodipine -Blood pressures are currently soft so we will hold off on any PRNs DM-2 -A1c is well-controlled -Hold metformin due to renal function -SSI -Accu-Cheks as ordered -Cardiac/carb controlled diet Hyperlipidemia -Continue home statin Morbid obesity -BMI is 47.4 -Complicates treatment, prognosis, outcomes -Recommend weight loss DVT prophylaxis -Heparin subcu 3 times daily CODE STATUS -Full code as verified at the time of admission Charges/Coding Visit Charges Inpatient E&M: 93220 Subs Hosp L3
--- NOTE | 2024-03-07 07:27 | EX.PCM.CONCC ---
Assessment & Plan Assessment/Plan (1) Hypotension: PLAN: Plan RECOMMENDATIONS: 1. Additional fluid resuscitation as ordered. 2. If fluid refractory hypotension persists, initiate vasopressor support. 3. Will continue empiric antibiotics for now. 4. Supplemental oxygen to maintain saturations at or above 90%. 5. Consider PAP therapy with sleep. 6. Continue appropriate DVT prophylaxis. 7. Encourage incentive spirometer use and mobilize patient as tolerated. IMPRESSIONS: 1. Hypotension Possibly related to intravascular volume depletion. The patient did have a recent diarrheal illness. Although sepsis would be another consideration, no definitive source of infection has yet to be identified. Will plan to continue current supportive measures with additional IV fluid resuscitation, as tolerated by the patient's respiratory status. In the interim, if the patient continues to experience fluid refractory hypotension, vasopressor support will be initiated. Empiric antibiotics will be continued for now. 2. Acute kidney injury Most likely secondary to obstructive uropathy and prerenal azotemia. The patient will receive additional fluids as noted. Creatinine is already improving. Jeff catheter is in place. Continue to monitor urine output for now. No current indication for renal replacement therapy. 3. Encephalopathy Most likely metabolic in etiology in the setting of #1 and 2. Continue supportive care as noted above. The patient does apparently have a history of sleep apnea but is noncompliant with PAP therapy. If mental status changes or worsens, recommend ABG. 4. Hypoxemia Possibly related to underlying atelectasis. Initial chest imaging was unremarkable. However, an infiltrate may develop with ongoing fluid resuscitation. Respiratory status will need to be monitored closely in the setting of volume resuscitation. Continue supplemental oxygen as tolerated. BNP is pending. If elevated, I agree with obtaining echocardiogram. 5. Morbid obesity/hypertension/diabetes mellitus/hyperlipidemia Complicates care, management, recovery and prognosis. Continue supportive care as noted above. This note was generated with Pow[employer] software. It may contain incorrect words, spelling, and punctuation that were not noted in checking the note before signing. HPI Consult Data Date of Consult: 03/07/24 HPI Narrative Reason for Consultation: Acute kidney injury, hypotension HPI Narrative: The patient is a 73-year-old male, with a history as outlined below, who presented to the emergency department via EMS on March 06 after sustaining a fall at home in the setting of a recent diarrheal illness. The patient has a history of hypertension, hyperlipidemia, GERD and diabetes mellitus. On presentation to the emergency department, the patient was initially noted to be afebrile and hemodynamically stable. Laboratory evaluation revealed an elevated white blood cell count at 13,000. Chemistry profile was notable for a BUN of 146 and creatinine of 9.31. Lactate was normal at 1.8. Urine analysis was positive for leukocyte esterase, negative for nitrates and negative for urine bacteria. Chest imaging demonstrated evidence of cardiomegaly. Head CT was unremarkable. CT abdomen/pelvis demonstrated a distended renal collecting system bilaterally likely secondary to chronic bladder outlet obstruction along with evidence of diverticulosis and intra-abdominal wall cellulitis/edema. The patient was initially started on supplemental IV fluids and admitted to the medical surgical floor. However, overnight, the patient developed fluid refractory hypotension. Over concerns for possible sepsis, cultures were obtained and the patient was initiated on antibiotics. He was subsequently transferred to the medical intensive care unit for further management. This morning, the patient is still somewhat confused but alert and oriented to person, place and time. He denies any abdominal pain or discomfort. The patient's BUN has improved to 129 with a creatinine of 4.56. The patient only demonstrated a Tmax overnight of 99.5 ?F. Blood pressures remain somewhat tenuous. [facility] Medical History Hypercholesterolemia Hypertension Morbid obesity Prediabetes Home Medications amlodipine 10 mg tablet (Norvasc) 10 mg PO DAILY BLOOD PRESSURE 03/06/24 [History Last Taken Unknown] lisinopril See Rx Instructions PO DAILY BLOOD PRESSURE 03/06/24 [History Last Taken Unknown] metformin 1 tab PO BID BLOOD SUGAR 03/06/24 [History Last Taken Unknown] omeprazole 40 mg capsule,delayed release 40 mg PO DAILY GERD 03/06/24 [History Last Taken Unknown] simvastatin See Rx Instructions PO DAILY LOWERS CHOLESTEROL 03/06/24 [History Last Taken Unknown] Allergy/AdvReac Type Severity Reaction Status Date / Time No Known Allergies Allergy Verified 03/06/24 09:44 Family History (Updated 03/06/24 @ 14:[address] Aries Ryan DO) Other Alcoholism Surgical History no surgical history Social History (Updated 03/06/24 @ 14:[address] Aries Ryan DO) Smoking Status: Never smoker substance use type: does not use ROS ROS Narrative 10 systems were reviewed with pertinent positives as noted in the HPI above. Physical Exam Const alert, oriented x3 and no apparent distress Constitutional Narrative: Morbidly obese. General Appearance: ill appearing HEENT normocephalic and head/scalp atraumatic Eyes PERRL, EOMs intact bilaterally and conjunctivae normal Neck supple General: trachea midline Chest inspection of chest normal Resp normal respiratory effort Effort and Inspection: tachypneic Auscultation: diminished lung sounds Cardio regular rate and regular rhythm GI normal to inspection, nondistended, normoactive bowel sounds Extremity no clubbing, cyanosis or edema Skin no rashes or lesions noted Neuro CN's II-XII intact bilaterally, moves all extremities and no focal motor deficits Psych Mood & Affect: flat affect Lab / Micro Data 03/07/24 07:50 03/07/24 05:40 Labs: Laboratory Results - last 24 hr 03/06/24 09:50: WBC 13.0 H, RBC 5.05, Hgb 13.9, Hct 42.3, MCV 83.8, MCH 27.5, MCHC 32.9, RDW Std Deviation 47.5 H, RDW Coeff of Eyal 15.6 H, Plt Count 261, MPV 9.7, Immature Gran % (Auto) 2.200 H, Neut % (Auto) 84.9 H, Lymph % (Auto) 6.1 L, [place] % (Auto) 5.8, Eos % (Auto) 0.3, Baso % (Auto) 0.7, Absolute Neuts (auto) 11.0 H, Absolute Lymphs (auto) 0.79 L, Nucleated RBC % 0, Reactive Lymphocytes 1+, Sodium 132 L, Potassium 5.1, Chloride 98, Carbon Dioxide 21.0, Anion Gap 13, BUN 146 H*, Creatinine 9.31 H*, Estim Creat Clear Calc 9.62, Est GFR (MDRD) Af Amer 7 L, Est GFR (MDRD) Non-Af 6 L, BUN/Creatinine Ratio 15.7, Glucose 123 H, Calcium 8.2 L, Phosphorus 4.7, Magnesium 2.8 H, Total Bilirubin 0.80, Direct Bilirubin 0.32 H, AST 111 H, ALT 89 H, Alkaline Phosphatase 86, Troponin I High Sens 12, B-Natriuretic Peptide 26.3, Total Protein 6.4, Albumin 2.3 L, Globulin 4.1, Lipase 46 03/06/24 11:13: Urine Color Yellow, Urine Clarity Clear, Urine pH 5.0, Ur Specific [place] 1.020, Urine Protein 15 H, Urine Glucose (UA) Normal, Urine Ketones Negative, Urine Occult Blood 250 H, Urine Nitrite Negative, Urine Bilirubin 1 H, Urine Urobilinogen Normal, Ur Leukocyte Esterase 25 H, Urine RBC 10-25 SEEN, Urine WBC 0-5 SEEN, Ur Squamous Epith Cells 0 SEEN, Urine Bacteria 0 SEEN, Urine Mucus 0 SEEN 03/06/24 16:51: POC Glucose 109 H 03/06/24 17:08: Hemoglobin A1c 6.8 H 03/06/24 23:44: POC Glucose 108 H 03/07/24 01:08: WBC 8.2, RBC 4.32 L, Hgb 12.2 L, Hct 37.0 L, MCV 85.6, MCH 28.2, MCHC 33.0, RDW Std Deviation 49.1 H, RDW Coeff of Eyal 15.6 H, Plt Count 251, MPV 10.2, Sodium 135 L, Potassium 4.7, Chloride 103, Carbon Dioxide 24.0, Anion Gap 8, BUN 135 H*, Creatinine 5.60 H, Estim Creat Clear Calc 17.12, Est GFR (MDRD) Af Amer 13 L, Est GFR (MDRD) Non-Af 11 L, BUN/Creatinine Ratio 24.1 H, Glucose 114 H, Lactic Acid 1.8, Calcium 8.0 L 03/07/24 05:40: WBC 9.1, RBC 4.17 L, Hgb 11.5 L, Hct 34.8 L, MCV 83.5, MCH 27.6, MCHC 33.0, RDW Std Deviation 47.5 H, RDW Coeff of Eyal 15.8 H, Plt Count 232, MPV 9.9, Immature Gran % (Auto) 3.700 H, Neut % (Auto) 82.6 H, Lymph % (Auto) 4.6 L, [place] % (Auto) 8.1, Eos % (Auto) 0.3, Baso % (Auto) 0.7, Absolute Neuts (auto) 7.5, Absolute Lymphs (auto) 0.42 L, Nucleated RBC % 0, Sodium 137, Potassium 4.6, Chloride 106, Carbon Dioxide 23.0, Anion Gap 8, BUN 129 H*, Creatinine 4.56 H, Estim Creat Clear Calc 21.15, Est GFR (MDRD) Af Amer 16 L, Est GFR (MDRD) Non-Af 14 L, BUN/Creatinine Ratio 28.3 H, Glucose 124 H, Calcium 7.7 L Imaging Radiology Impression Chest X-Ray 03/06/24 10:20 IMPRESSION: Borderline cardiomegaly. No acute abnormality is seen. Electronically Signed: Alton Stephenson MD at 10:47 EDT , Brain CT 03/06/24 10:38 IMPRESSION: No acute intracranial abnormality. Electronically Signed: Jesus Mendoza MD at 13:13 EDT Reading Location ID and State: [facility] / [place] Tel , Service support , Abdomen/Pelvis CT 03/06/24 10:47 IMPRESSION: 1. No evidence of acute intra-abdominal or pelvic injury. 2. Distended renal collecting system bilaterally likely related to chronic bladder outlet obstruction. 3. Prostatomegaly. 4. Diverticulosis coli. 5. Intra-abdominal wall cellulitis/edema. Electronically Signed: Jesus Mendoza MD at 13:27 EDT , Hip/Pelvis X-Ray 03/06/24 14:40 IMPRESSION: No acute abnormality is seen. Electronically Signed: Alton Stephenson MD at 14:56 EDT , Chest X-Ray 03/06/24 23:05 IMPRESSION: Increased density within the retrocardiac portion of the left lower lung, most likely due to superimposed vascular shadows accentuated by positioning and technique, as no retrocardiac airspace disease was seen in this area on preceding CT. Developing pneumonia felt less likely. Follow-up PA and lateral views may be of benefit for further evaluation, when the patient is clinically stable. Electronically Signed: Gal Palma MD at 0:44 EDT , KUB X-Ray 03/06/24 23:05 IMPRESSION: No evidence for large or small bowel obstruction. Gas within the ascending colon outlines haustral folds which appear asymmetrically thickened, suggestive of a right-sided colitis. Electronically Signed: Gal Palma MD at 0:37 EDT , Charges/Coding Visit Charges Inpatient E&M: 85291 Init Hosp L3
[2024-03-07] MEDS: 0.9% Normal Saline (1000mL) 1,000 ML 999 ML IV (07:46)
[2024-03-07 08:16] LABS: BNP,B-Type NATRIURETIC PEPTIDE 17.7 pg/mL (0-100)
[2024-03-07 08:21] LABS: Hemoglobin 11.2 g/dL (13.0-16.5)
[2024-03-07 08:27] LABS: Bedside Glucose 113 mg/dL (74-106)
[2024-03-07 08:30] LABS: Ferritin 741 ng/mL (26-388); Iron 21 ug/dL (65-175); Iron Binding Capacity,Total 193 ug/dL (250-450); PERCENT IRON SATURATION 10.9 % (15.0-55.0)
[2024-03-07 09:13] LABS: Urine Sodium 13 mmol/L (Not Establ.)
--- NOTE | 2024-03-07 09:38 | PCM.RX.CS ---
Consult Antibiotic Management Pharmacy has been consulted to manage selected antibiotic: Vancomycin Type of Intervention Type of Consult: Follow-up Suspected Infection Suspected Infection: Osteomyelitis Prior Doses of Antibiotics Prior Doses of Antibiotics Received/Current Regimen: 03/07/24 @ 0056 Labs Labs: Sodium 137 mmol/L (136-145) 03/07/24 05:40 Potassium 4.6 mmol/L (3.5-5.1) 03/07/24 05:40 Chloride 106 mmol/L (98-107) 03/07/24 05:40 Carbon Dioxide 23.0 mmol/L (21.0-32.0) 03/07/24 05:40 Anion Gap 8 (5-15) 03/07/24 05:40 BUN 129 mg/dL (7-18) H* 03/07/24 05:40 Creatinine 4.56 mg/dL (0.70-1.30) H 03/07/24 05:40 Est GFR (MDRD) Af Amer 16 mL/min (>60) L 03/07/24 05:40 Est GFR (MDRD) Non-Af 14 mL/min (>60) L 03/07/24 05:40 BUN/Creatinine Ratio 28.3 RATIO (10-20) H 03/07/24 05:40 Glucose 124 mg/dL (74-106) H 03/07/24 05:40 Microbiology Microbiology: Microbiology 03/06/24 11:13 Urine Catheter - Jeff Legionella Antigen - Final 03/06/24 11:13 Urine Catheter - Jeff Streptococcus pneumoniae Antigen (M - Final Dosing Weight Weight used for dosin kg Estimated Creatinine Clearance Estimated Creatinine Clearance: 21 Goal Trough Goal Trough: 15-20 mcg/mL Pharmacy Plan for Drug Dosing Pharmacy Plan for Drug Dosing: Random Vancomycin level to be drawn 03/08/24 @0600 Pharmacy Service will continue to monitor and adjust dosing as required. Follow-Up Labs Follow-Up Labs: Trough: Vancomycin and Trough: Other Date/Time Labs Ordered Labs to be done on [date and time ordered]: random level 03/08/24 @ 0600
[2024-03-07] MEDS: Norepinephrine 8 MG in 0.9% Normal Saline (250mL Bag) 242 ML 9.4 MG CONT INF (10:00)
[2024-03-07] MEDS: Pantoprazole Sodium 40 MG Tablet PO (10:09)
[2024-03-07] MEDS: 0.9 % NaCl (Sterile) Posiflush 10 mL IV (10:09)
[2024-03-07] MEDS: Finasteride 5 MG Tablet PO (10:09)
--- NOTE | 2024-03-07 10:10 | PCM.OP.PRO ---
Procedure Report Date of Procedure: 03/07/24 Assessment & Plan Assessment/Plan (1) Hypotension: QUALIFIERS: Hypotension type: unspecified hypotension type Qualified Code(s): I95.9 - Hypotension, unspecified Procedures Radiology Radiology Access Procedures: PICC Procedure Time Out Time Out Informed consent given: Yes Consent signed: Yes Time out checklist: patient, procedure, site marked/identified, positioning of patient, supplies available and allergies confirmed Time out verified: Yes Time out date: 03/07/24 Time out time: 09:15 PICC Line Consent Screening tool completed:: Yes Consent obtained:: Yes Consent given by (patient or responsible alliance party):: PATIENT Line successful (if no, document why in comments):: Yes Insertion Reason for Insertion: Poor Venous Access Date of Insertion: 03/07/24 Ok to use: Yes Type of PICC inserted: Dual Power PICC PICC Lot #: [id number] PICC Reference #: [id number] Microintroducer Used: Yes (in kit) Ultrasound/Equipment Used: Probe Cover Kit Trimmed Length (cm): 55 Insertion Length (cm): 53 Exposed Length (cm): 2 Tip Placement: Caval Atrial Junction Placement Confirmation: 3CG Insertion Vein: Left Basilic Insertion Attempts: 1 Local Anesthesia Used: Lidocaine 1% (in kit) Dressing Applied: Statlock and Tegaderm CHG Arm Measurement above site (in cm): 31 Patient Tolerated Procedure: Well Threading Difficulties: No Comments Comment: Patient identity was verified with two patient identifiers. Informed consent was obtained and time-out was completed. Hands were sanitized. The patient was positioned supine with left arm at 90 degrees. The patient's upper arm vasculature was assessed using ultrasound. Patency of the left basilic vein was confirmed and the vein was externally marked. An external measurement was obtained of 55 cm. External leads were applied to the patient's right upper chest and laterally and inferior of the umbilicus on the mid axillary line. Cap, mask, and prep gloves were donned. The underdrape was placed under the patient's arm. The site was prepped with chlorhexidine, and tourniquet was loosely applied. Prep gloves were discarded, and hands were sanitized. The sterile kit was opened with additional supplies dropped in. Sterile gown and gloves were donned, and the patient was draped. The sterile kit was assembled with needle, introducer, needless connectors, and each catheter lumen flushed with sterile normal saline. The marked site of insertion was anesthetized with 1% lidocaine from the kit. Patient tolerated well. The left basilic vein was then accessed using ultrasound guidance and guidewire was inserted to safety natalie. The tourniquet was released. The access needle was removed while securing the guidewire in place. The site was again anesthetized with 1% lidocaine, prior to insertion of introducer sheath and dilator. Patient tolerated the insertion well. The catheter was trimmed to a length of 55 cm. Using 3C guidance, the catheter was then inserted through the introducer sheath, slowly. There was no resistance on insertion. The catheter followed the expected course of the vessel using 3CG tracking. The introducer sheath was retracted and peeled away, incrementally, while keeping the catheter secured. Maximal p-wave, without deflection, confirming placement in the cavoatrial junction, was obtained at an insertion length of 53 cm, leaving 2 cm external. The stylet was removed. A flushed needleless connector was attached to the lumen. Aspiration of the lumen was performed to remove any air and confirm blood return. Blood return was verified and each lumen was flushed with 10 ml of sterile normal saline in a pulsatile fashion. The each lumen was clamped with the last pulsed flush. Total sterile flushes used for the insertion was 7 10 ml syringes, 2 from the kit. Finally, the insertion site was cleaned with chlorhexidine, and the catheter was secured using a StatLock. The site was covered with a Tegaderm CHG Dressing and disinfecting caps were applied. Baseline arm circumference was obtained at the insertion site and measured 31 cm. The patient was provided with a patient education handout on PICC line care of infection prevention, heavy lifting restriction, maintaining mobility, and watching for any signs of infection. The primary nurse is aware that the PICC line is ready for use.
--- NOTE | 2024-03-07 10:45 | CASEMGMT ---
RN MEDARDO Assessment Face to Face with patient for initial transition planning/care coordination assessment. RN MEDARDO introduced self and role at [facility], pt voices understanding. Pt is A&Ox4 and is resting comfortably in bed and is calm. Pt RN at bedside currently. Care providers, pharmacy, and demographics verified. Admitting dx: JOSE C TELLO Strata: 1 PCP: Annie Specialists: Denies Preferred Pharmacy: [facility]: [facility] Prescription Benefit: Yes LNOK: Lyntete Montaño (CHERYL), Zuly Montaño (CHERYL) Living Arrangements: Pt lives alone in a single story home with a BM without HR and 2 steps to enter ADLs/IADLs: Pt states that he is normally ind. Will follow therapy to evaluate current status Transportation: Self, Daughters DME: Denies all DME current uses. Pt is on 4L of O2 now. A local list of in-network DME companies provided to the pt at this time and the pt chose [employer] for potential home O2 needs. HHC/SNF: Denies history Pt?s goal: TBD Plan: TBD. Pt was transferred to the ICU for hypotension. Dr. Dawn states to hold therapy today. Pt states that he is unsure on what he would like to do at time of DC. At this time the plan is TBD and is contingent on pt progression in the hospital as well as therapy evaluations. MEDARDO/ DEVAN to follow for safe DC from [facility]. Nelson King RN, CM
--- NOTE | 2024-03-07 11:45 | CHAPLAIN ---
Type of Pastoral Visit _x__ Initial Visit ___ Follow-up Visit ___ On-call Visit ___ General Patient Visit ___ Spiritual Assessment ___ Family Conference ___ Bereavement ___ Rapid Response ___ Code Blue ___ Other (describe below) Pastoral Care Referral From _x__ Patient ___ Family ___ Nurse ___ Physician ___ Painter Supervisor ___ Supervisor Furnace Process ___ Other (describe below) Sacrament/Intervention _x__ Active listening ___ Anointing ___ Rastafarian ___ Bereavement ___ Communion ___ [place] exploration ___ ___ Life review _x__ Prayer ___ Reconciliation ___ Sacrament of Sick _x__ Supportive presence ___ Wedding ___ Other (describe below) Pastoral Comments patient and daughter are in the room; pt appears to be sleeping but becomes alert during initial meeting with the daughter; both identify as Yarsani; pt says that his only concern is for health; no other needs are spoken; offer of ongoing support given; prayer welcomed
[2024-03-07 11:57] LABS: M R Staph aureus DNA By PCR Negative (Negative); Probe Check PASS; Specimen Processing Control PASS
[2024-03-07 12:39] LABS: Hemoglobin 12.2 g/dL (13.0-16.5)
[2024-03-07 12:52] LABS: Bedside Glucose 105 mg/dL (74-106)
[2024-03-07] MEDS: Tamsulosin HCl 0.4 MG Capsule PO ×2 (16:03→16:09)
[2024-03-07] MEDS: oxyCODONE 5 MG Tablet PO (16:09)
[2024-03-07] MEDS: Acetaminophen 325 MG Tablet 650 MG PO ×2 (16:10→21:41)
[2024-03-07 16:33] LABS: Bedside Glucose 116 mg/dL (74-106)
[2024-03-07 18:35] LABS: Hemoglobin 12.5 g/dL (13.0-16.5)
[2024-03-07] MEDS: Norepinephrine 8 MG in 0.9% Normal Saline (250mL Bag) 242 ML 28.1 MG CONT INF (19:29)
[2024-03-07] MEDS: Atorvastatin Calcium 20 MG Tablet PO (21:38)
[2024-03-07 22:29] LABS: Bedside Glucose 139 mg/dL (74-106)
[2024-03-08] VITALS (39 sets, daily range): BP systolic 80–134; BP diastolic 48–78; PULSE 66–86; RESP 15–30; TEMP 36.3–36.7; O2SAT 91–98; BMI 45.3
[2024-03-08 04:07] LABS: Hematocrit 39.1 % (40-54); Hemoglobin 12.4 g/dL (13.0-16.5); Mean Corp Hgb Conc 31.7 g/dL (32-36); Mean Corpuscular Hgb 27.6 pg (27.0-32.0); Mean Corpuscular Volume 86.9 fL (80-94); Mean Platelet Vol. 9.6 fl (6.2-12.0); POSITIVE COUNT YES; POSITIVE MORPHOLOGY YES; Platelet Count 258 K/mm3 (150-450); RBC Distribution Width SD 51.2 fl (35.1-43.9); White Blood Count 8.6 K/mm3 (4.4-11.0)
[2024-03-08 04:40] LABS: ALB/GLOB Ratio 0.5 RATIO (0.9-2.4); AST(SGOT) 181 U/L (15-37); Alanine Aminotransfer ALT/SGPT 142 U/L (16-61); Alkaline Phosphatase 113 U/L (45-117); Anion Gap 6 (5-15); BUN 80 mg/dL (7-18); BUN/Creat Ratio 42.1 RATIO (10-20); Calcium,Total 8.2 mg/dL (8.5-10.1); Chloride 112 mmol/L (98-107); EST Glomerular Filtration Rate 37 mL/min (>60); Est Glom Filt Rate - Afr Amer 45 mL/min (>60); Estimated Creatinine Clearance 50.75 ml/min; Globulin 4.4 g/dL (2.2-4.2); Glucose 160 mg/dL (74-106); Magnesium 2.6 mg/dL (1.6-2.6); Phosphorus 3.1 mg/dL (2.5-4.9); Potassium 4.4 mmol/L (3.5-5.1); Protein, Total 6.4 g/dL (6.4-8.2); Sodium Level 146 mmol/L (136-145); Thyroid Stim Hormone (TSH) 2.33 uIU/mL (0.358-3.74)
--- NOTE | 2024-03-08 05:00 | NURSING ---
LEVOPHED INFUSING , MAR SAYS ITS EMPTY, BUT IT IS NOT
[2024-03-08] MEDS: Norepinephrine 8 MG in 0.9% Normal Saline (250mL Bag) 242 ML 28.1 MG CONT INF (05:15)
[2024-03-08 05:18] LABS: Differential Indicated MANUAL DIFF
[2024-03-08 05:22] LABS: Metamyelocyte 3 % (0-1); Neutrophil-Band 3 % (0-5); Neutrophil-Segmented 73 % (47-70); Total Cells Counted 100 (MANUAL DIFF)
[2024-03-08 05:23] LABS: Eosinophil 2 % (0-5); Lymphocyte 9 % (19-41); Monocyte 9 % (0-10); Myelocyte 1 % (0-0)
[2024-03-08 05:25] LABS: Anisocytosis RARE; Platelet Estimate ADEQUATE (ADEQ)
[2024-03-08 05:26] LABS: Absolute Lymphocyte Count 0.77 X10^3/uL (0.83-4.51); Absolute Neutrophil Count 6.6 X10^3/uL (2.0-7.7)
[2024-03-08] MEDS: Heparin Injection (Vial) 5,000 UNIT/ML VIAL 5000 UNIT SC ×3 (05:51→21:44)
[2024-03-08 06:51] LABS: Bedside Glucose 130 mg/dL (74-106)
[2024-03-08 06:54] LABS: Vancomycin, Random Level 5.8 ug/mL (0.0-15.0)
--- NOTE | 2024-03-08 07:28 | PCM.PN.INT ---
Assessment & Plan Assessment/Plan (1) Hypotension: QUALIFIERS: Hypotension type: unspecified hypotension type Qualified Code(s): I95.9 - Hypotension, unspecified PLAN: Plan RECOMMENDATIONS: 1. Continue Levophed to maintain a mean arterial pressure at or above 65 mmHg. 2. Continue antimicrobials, pending finalized culture results. 3. Wean supplemental oxygen to maintain saturations at or above 90%. 4. Consider PAP therapy with sleep. 5. Continue appropriate DVT prophylaxis. 6. Encourage incentive spirometer use and mobilize patient as tolerated. IMPRESSIONS: 1. Gram-negative septic shock The patient presented with fluid refractory hypotension, necessitating vasopressor support. He did have a recent diarrheal illness and currently has gram-negative rods isolated in blood cultures. I suspect either a GI or source of infection with secondary hematogenous spread. In addition, intravascular volume depletion was also contributing to his presenting hemodynamic instability. The patient remains on appropriate antimicrobial therapy, pending finalized culture results. Plan to continue Levophed to maintain a mean arterial pressure at or above 65 mmHg. 2. Acute kidney injury Improving. Most likely secondary to obstructive uropathy and prerenal azotemia. The patient will receive additional fluids as noted. Creatinine continues to improve. Jeff catheter is in place. Continue to monitor urine output for now. No current indication for renal replacement therapy. 3. Encephalopathy Improving. Most likely metabolic in etiology in the setting of #1 and 2. Continue supportive care as noted above. The patient does apparently have a history of sleep apnea but is noncompliant with PAP therapy. 4. Hypoxemia Possibly related to underlying atelectasis. Initial chest imaging was unremarkable. However, an infiltrate may develop with ongoing fluid resuscitation. Respiratory status will need to be monitored closely in the setting of volume resuscitation. Continue supplemental oxygen as tolerated. 5. Morbid obesity/hypertension/diabetes mellitus/hyperlipidemia Complicates care, management, recovery and prognosis. Continue supportive care as noted above. TIME: 32 minutes of critical care time, independent of procedures, was spent addressing the patient's gram-negative septic shock, acute kidney injury, encephalopathy, hypoxemia, review of all data and collaboration with care team. Subjective Subjective The patient was seen and examined at the bedside this morning. Events from the last 24 hours have been reviewed. The patient is currently afebrile but is requiring Levophed at 15 mcg/min to maintain hemodynamic stability. Oxygenation status is stable on 2 L/min via nasal cannula. The patient's only complaint this morning is for that of needing to have a bowel movement. Sodium is mildly elevated this morning at 146 with a chloride of 112, BUN of 80 and creatinine of 1.9. Overall, the patient's chemistry profile has significantly improved. Objective Data Objective Data The patient's most recent lab work, culture data and imaging studies have all been personally reviewed. COVID PCR was negative. Respiratory viral panel was negative. Preliminary blood culture is demonstrating growth of a gram-negative boone. Vital Signs: Vital Signs Temp Pulse Resp BP Pulse Ox O2 Del Method O2 Flow Rate 97.4 F L 66 23 H 103/54 L 97 Nasal Cannula 2 03/08/24 05:30 03/08/24 06:00 03/08/24 06:00 03/08/24 06:00 03/08/24 06:00 03/08/24 06:00 03/08/24 06:00 Oxygen Flow Rate (L/min) 2 Oxygen Delivery Method Nasal Cannula Weight: 307 lb 5.19 oz Body Mass Index (BMI) 45.3 Intake & Output: Intake and Output for Last 24 Hours 03/06/24 03/07/24 03/08/24 23:59 23:59 23:59 Intake Total 1200 / 1200 2988.82 / 3116.92 522.26 / 522.26 Output Total 450 / 850 2750 / 4400 2100 / 2100 Balance 750 / 350 238.82 / -1283.08 -1577.74 / -1577.74 Lab / Micro Data Attestation: I reviewed the patient's lab results. 03/08/24 03:55 03/08/24 03:55 Labs: Laboratory Results - last 24 hr 03/06/24 11:13: Ur Random Sodium 13, Urine Creatinine 195.00 03/07/24 05:40: B-Natriuretic Peptide 17.7 03/07/24 07:50: Hgb 11.2 L, Iron 21 L, TIBC 193 L, Iron Saturation 10.9 L, Ferritin 741 H 03/07/24 07:53: POC Glucose 113 H 03/07/24 10:20: MRSA (PCR) Negative 03/07/24 12:29: POC Glucose 105 03/07/24 12:35: Hgb 12.2 L 03/07/24 16:01: POC Glucose 116 H 03/07/24 18:25: Hgb 12.5 L 03/07/24 22:10: POC Glucose 139 H 03/08/24 03:55: WBC 8.6, RBC 4.50 L, Hgb 12.4 L, Hct 39.1 L, MCV 86.9, MCH 27.6, MCHC 31.7 L, RDW Std Deviation 51.2 H, RDW Coeff of Eyal 16.0 H, Plt Count 258, MPV 9.6, Neut % (Auto) Not Reportable, Absolute Neuts (auto) 6.6, Absolute Lymphs (auto) 0.77 L, Total Counted 100, Neutrophils % (Manual) 73 H, Band Neutrophils % 3, Lymphocytes % (Manual) 9 L, Monocytes % (Manual) 9, Eosinophils % (Manual) 2, Metamyelocytes % 3 H, Myelocytes % 1 H, Diff Path Review May foll, Platelet Estimate ADEQUATE, Anisocytosis RARE, Sodium 146 H, Potassium 4.4, Chloride 112 H, Carbon Dioxide 28.0, Anion Gap 6, BUN 80 H, Creatinine 1.90 H, Estim Creat Clear Calc 50.75, Est GFR (MDRD) Af Amer 45 L, Est GFR (MDRD) Non-Af 37 L, BUN/Creatinine Ratio 42.1 H, Glucose 160 H, Calcium 8.2 L, Phosphorus 3.1, Magnesium 2.6, Total Bilirubin 1.00, AST 181 H, ALT 142 H, Alkaline Phosphatase 113, Total Protein 6.4, Albumin 2.0 L, Globulin 4.4 H, Albumin/Globulin Ratio 0.5 L, TSH 2.33 03/08/24 04:47: Random Vancomycin 5.8 03/08/24 06:32: POC Glucose 130 H Micro: Microbiology 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 Culture - Preliminary 03/07/24 08:34 Mucosa - Nasopharyngeal Respiratory Panel (PCR) - Final 03/07/24 10:30 Mucosa - Nose Coronavirus COVID-19 PCR - Final 03/07/24 01:08 Blood Culture (Wb) - Left Hand Blood Culture - Preliminary 03/06/24 11:13 Urine Catheter - Jeff Legionella Antigen - Final 03/06/24 11:13 Urine Catheter - Jeff Streptococcus pneumoniae Antigen (M - Final Physical Exam Const alert, oriented x3 and no apparent distress Constitutional Narrative: Morbidly obese. Sitting upright in bed. HEENT normocephalic and head/scalp atraumatic Eyes PERRL, EOMs intact bilaterally and conjunctivae normal Neck supple General: trachea midline Chest inspection of chest normal Resp normal respiratory effort Auscultation: diminished lung sounds Cardio regular rate and regular rhythm GI normal to inspection, nondistended, normoactive bowel sounds Extremity no clubbing, cyanosis or edema Skin no rashes or lesions noted Neuro CN's II-XII intact bilaterally, moves all extremities and no focal motor deficits Psych cooperative and affect normal Charges/Coding Procedures Hospitalists Procedures: 77753 Critical Care 1st Hr
[2024-03-08] MEDS: Piperacil/Tazobactam 3.375 GM in 0.9% Normal Saline (50mL MB+) 50 ML IV ×3 (07:58→21:44)
[2024-03-08] MEDS: Finasteride 5 MG Tablet PO (07:59)
[2024-03-08] MEDS: Pantoprazole Sodium 40 MG Tablet PO (07:59)
[2024-03-08] MEDS: Lactated Ringers 1,000 ML 100 ML IV ×2 (08:33→18:20)
--- NOTE | 2024-03-08 11:22 | PCM.PN.HOSP ---
Reason for Visit Reason for Visit: Fall Subjective Subjective No issues through the night. Yesterday we did have to start pressors on him and he is currently on Levophed at 15 mics per minute. Clinically appears much better. Sitting up in a chair. Nursing reports his urine output has been very significant which I suspect is related to postobstructive diuresis. We will maintain IV fluids running for today given this. Objective Data Objective Data Vital Signs: Vital Signs Temp Pulse Resp BP Pulse Ox O2 Del Method O2 Flow Rate 98.1 F 74 22 H 101/49 L 94 Nasal Cannula 2 03/08/24 11:06 03/08/24 11:06 03/08/24 11:06 03/08/24 11:06 03/08/24 11:06 03/08/24 11:18 03/08/24 11:18 Oxygen Flow Rate (L/min) 2 Oxygen Delivery Method Nasal Cannula Weight: 139.4 kg Body Mass Index (BMI) 45.3 Intake & Output: Intake and Output for Last 24 Hours 03/06/24 03/07/24 03/08/24 23:59 23:59 23:59 Intake Total 1200 / 1200 2988.82 / 3116.92 665.57 / 665.57 Output Total 450 / 850 2750 / 4400 3450 / 3450 Balance 750 / 350 238.82 / -1283.08 -2784.43 / -2784.43 Lab / Micro Data 03/08/24 03:55 03/08/24 03:55 Labs: Laboratory Results - last 24 hr 03/07/24 10:20: MRSA (PCR) Negative 03/07/24 12:29: POC Glucose 105 03/07/24 12:35: Hgb 12.2 L 03/07/24 16:01: POC Glucose 116 H 03/07/24 18:25: Hgb 12.5 L 03/07/24 22:10: POC Glucose 139 H 03/08/24 03:55: WBC 8.6, RBC 4.50 L, Hgb 12.4 L, Hct 39.1 L, MCV 86.9, MCH 27.6, MCHC 31.7 L, RDW Std Deviation 51.2 H, RDW Coeff of Eyal 16.0 H, Plt Count 258, MPV 9.6, Neut % (Auto) Not Reportable, Absolute Neuts (auto) 6.6, Absolute Lymphs (auto) 0.77 L, Total Counted 100, Neutrophils % (Manual) 73 H, Band Neutrophils % 3, Lymphocytes % (Manual) 9 L, Monocytes % (Manual) 9, Eosinophils % (Manual) 2, Metamyelocytes % 3 H, Myelocytes % 1 H, Diff Path Review May foll, Platelet Estimate ADEQUATE, Anisocytosis RARE, Sodium 146 H, Potassium 4.4, Chloride 112 H, Carbon Dioxide 28.0, Anion Gap 6, BUN 80 H, Creatinine 1.90 H, Estim Creat Clear Calc 50.75, Est GFR (MDRD) Af Amer 45 L, Est GFR (MDRD) Non-Af 37 L, BUN/Creatinine Ratio 42.1 H, Glucose 160 H, Calcium 8.2 L, Phosphorus 3.1, Magnesium 2.6, Total Bilirubin 1.00, AST 181 H, ALT 142 H, Alkaline Phosphatase 113, Total Protein 6.4, Albumin 2.0 L, Globulin 4.4 H, Albumin/Globulin Ratio 0.5 L, TSH 2.33 03/08/24 04:47: Random Vancomycin 5.8 03/08/24 06:32: POC Glucose 130 H Micro: Microbiology 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 Culture - Preliminary GNR lactose 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 maintenance supervisor 03/07/24 01:08 Blood Culture (Wb) - Left Hand Blood Culture - Preliminary GNR lactose property maintenance supervisor 03/07/24 08:34 Mucosa - Nasopharyngeal Respiratory Panel (PCR) - Final 03/07/24 10:30 Mucosa - Nose Coronavirus COVID-19 PCR - Final 03/06/24 11:13 Urine Catheter - Jeff Legionella Antigen - Final 03/06/24 11:13 Urine Catheter - Jeff Streptococcus pneumoniae Antigen (M - Final Physical Exam Const alert, oriented x3, no apparent distress and well nourished; Negative for average body habitus or healthy appearing Constitutional Narrative: Morbidly obese, white male, sitting up in a chair at the bedside, patient appears much improved in the last 24 hours, no signs of confusion or shortness of breath, able to participate in conversation and stay awake, currently appears nontoxic HEENT normocephalic and head/scalp atraumatic HEENT Narrative: Mallampati 3, no thrush Resp normal respiratory effort, no retractions, no use of accessory muscles and clear to auscultation bilaterally Auscultation: Negative for rales, rhonchi or wheezes Cardio regular rate, regular rhythm, S1 normal heart sound, S2 normal heart sound, no murmurs, no rub, no gallops and no clicks GI normal to inspection, nondistended, normoactive bowel sounds, soft to palpation and non-tender Extremity no clubbing, cyanosis or edema Extremity Narrative: Pedal and radial pulses are 2+ bilaterally Neuro oriented x3, moves all extremities and no focal motor deficits Neuro Narrative: Some generalized weakness noted at this time but no focal deficits Speech: speech normal Psych Psych Narrative: Affect is strange, patient interacts appropriately and answers question, eye contact is good Assessment & Plan Assessment/Plan (1) Hypotension: QUALIFIERS: Hypotension type: unspecified hypotension type Qualified Code(s): I95.9 - Hypotension, unspecified (2) Acute bilateral obstructive uropathy: (3) Fall: (4) Acute renal failure: (5) Acute pain of right hip: (6) Anemia: (7) Hypoxia: (8) Septic shock: (9) Urinary retention: (10) Dysphagia: PLAN: Plan Septic shock secondary to gram-negative bacteremia suspect urinary source -Etiology is now clear--> initially was responding to fluid however then became hypotensive and required initiation of Levophed -Currently on Levophed at 15 mcg/min and wean as able to maintain a MAP greater than 65 -2 of 2 blood cultures are showing a gram-negative boone but the lactose property maintenance supervisor -Urine culture remains pending -MRSA PCR was negative so will stop vancomycin -Continue Zosyn -Pulmonary/critical care is following-appreciate input JOSE C secondary to obstructive uropathy and sepsis -Baseline serum creatinine is unknown -Serum creatinine on presentation was 9.31 -Current creatinine down to 1.90 and patient seems to be having a postobstructive diuresis -Continue to hold metformin and lisinopril -Continue Levophed to maintain MAP greater than 65 -Will continue to run IV fluids with LR at 100 cc/h due to postobstructive diuresis and reevaluate again tomorrow Dysphagia -Large emesis that was delayed after oral intake and speech therapy is concerned about doing modified barium swallow -Recommended GI consult -Family reports that this has been an ongoing issue at home -GI consult placed in hopes for EGD to evaluate esophagus -Continue speech therapy Hypoxia -No infiltrate noted on CT -Workup is essentially negative -Likely related to sepsis -Continue to monitor Anemia -Hemoglobin has stabilized and is currently in the 11-12 range -Iron studies are suggestive of chronic disease and ferritin is elevated due to acute phase reactant with sepsis -Will monitor 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 -Continue Jeff -Continue proscar -Continue Flomax -Will need to maintain Jeff at discharge and follow-up as an outpatient with urology Toxic/metabolic encephalopathy -Resolving -Likely related to the above uremia and acute infection Generalized weakness/fall/hip pain -Imaging was performed and does not show any acute fractures -PT/OT following -sales center manager/social work consultation to assist with discharge planning Hypertension -Hold lisinopril due to JOSE C -Hold home amlodipine -Will reinstitute antihypertensives once appropriate but patient currently on pressors DM-2 -A1c is well-controlled -AM fasting blood sugars 160 -Hold metformin due to renal function -SSI -Accu-Cheks as ordered -Cardiac/carb controlled diet Hyperlipidemia -Continue home statin Morbid obesity -BMI is 45.4 -Complicates treatment, prognosis, outcomes -Recommend weight loss DVT prophylaxis -Heparin subcu 3 times daily CODE STATUS -Full code as verified at the time of admission Charges/Coding Visit Charges Inpatient E&M: 41949 Subs Hosp L2
[2024-03-08 13:44] LABS: Pathologist Review Reviewed
[2024-03-08 16:35] LABS: Bedside Glucose 171 mg/dL (74-106)
[2024-03-08 17:29] LABS: Bedside Glucose 136 mg/dL (74-106)
--- NOTE | 2024-03-08 18:30 | EX.PCM.CON.G ---
HPI Consult Data Date of Consult: 03/08/24 HPI Narrative Reason for Consultation: Nausea vomiting and dysphagia HPI Narrative: RISHI STRATTON, is a 73 M who presented with weakness. Last Monday, patient was having diarrhea, slipped on his feces and has been weak. Since this weekend, he has not urinated. He has had increased abdominal pain, shortness of breath due to the abdominal pain. With him being profoundly weak, the family sent him to the emergency room. In the emergency room, patient was noted to have a creatinine of 9.3, no baseline available in [facility]. Patient is not dialysis dependent. He does have reported history of BPH in the past. Patient did have a Jeff catheter placed after it was noted that he had profound collecting system dilation and BPH. Patient stated that after the catheter was placed, he had improved abdominal pain and shortness of breath. Had known history of BPH and had Jeff catheter placed in the ED with significant urine output noted. Imaging showed profound collecting system dilation and BPH. Patient was started on IV fluids and admitted to [facility]. His BP had dropped to the low 80s over 50s. He was still receiving maintenance IV fluids at that time. Lactate was normal at 1.8. CBC was normal. Chest x-ray appeared fairly benign. KUB showed no evidence for large or small bowel obstruction but did show gas within the ascending colon outlines that appear asymmetrically thickened suggestive of a right-sided colitis. Blood cultures were obtained and patient was started on IV vancomycin and Zosyn for broad-spectrum coverage for now. Patient continued to have low BP readings, with lowest of 79/47 despite fluid resuscitation. He was also noted to have a low-grade temperature at that time. Had concern about giving further IV fluids as his respiratory status was already starting to slightly worsen and he had very minimal urine output. So, decision was made to transfer patient to the ICU for further monitoring. On arrival to the ICU, patient was starting to appear improved and blood pressure was noted to be around 120/50 by nursing staff. Gum Scoring Machine Operator consult placed. Will continue broad-spectrum antibiotics for now, follow up blood cultures and urine culture. He was diagnosed with gram-negative septic shock he continues on antimicrobial therapy. However he still remains on pressors. I was asked to see him because of worsening esophageal dysphagia, failed swallowing study and frequent nausea vomiting after eating. FORMERLY [facility], [facility]1983 Medical History Hypercholesterolemia Hypertension Morbid obesity Prediabetes Home Medications amlodipine 10 mg tablet (Norvasc) 10 mg PO DAILY BLOOD PRESSURE 03/06/24 [History Last Taken Unknown] lisinopril See Rx Instructions PO DAILY BLOOD PRESSURE 03/06/24 [History Last Taken Unknown] metformin 1 tab PO BID BLOOD SUGAR 03/06/24 [History Last Taken Unknown] omeprazole 40 mg capsule,delayed release 40 mg PO DAILY GERD 03/06/24 [History Last Taken Unknown] simvastatin See Rx Instructions PO DAILY LOWERS CHOLESTEROL 03/06/24 [History Last Taken Unknown] Allergy/AdvReac Type Severity Reaction Status Date / Time No Known Allergies Allergy Verified 03/06/24 09:44 Family History (Updated 03/06/24 @ 14:[address] Aries Ryan DO) Other Alcoholism Surgical History no surgical history Social History (Updated 03/06/24 @ 14:[address] Aries Ryan DO) Smoking Status: Never smoker substance use type: does not use ROS ROS Narrative Daughters present in the notes that he has periods where he has apneic episodes while he sleeps and his pulse ox will drop down into the 70s during these periods. He has never been diagnosed with sleep apnea. Sore throat. Did have some transient fever and chills. All review of systems were negative except as mentioned above in the history of present illness and the other review of systems. Physical Exam Const alert, oriented x3 and no apparent distress Constitutional Narrative: Morbidly obese. Sitting upright in bed. HEENT normocephalic and head/scalp atraumatic Eyes PERRL, EOMs intact bilaterally and conjunctivae normal Neck supple General: trachea midline Chest inspection of chest normal Resp normal respiratory effort Auscultation: diminished lung sounds Cardio regular rate and regular rhythm GI normal to inspection, nondistended, normoactive bowel sounds Extremity no clubbing, cyanosis or edema Skin no rashes or lesions noted Neuro CN's II-XII intact bilaterally, moves all extremities and no focal motor deficits Psych cooperative and affect normal Lab / Micro Data 03/08/24 03:55 03/08/24 03:55 Labs: Laboratory Results - last 24 hr 03/07/24 18:25: Hgb 12.5 L 03/07/24 22:10: POC Glucose 139 H 03/08/24 03:55: WBC 8.6, RBC 4.50 L, Hgb 12.4 L, Hct 39.1 L, MCV 86.9, MCH 27.6, MCHC 31.7 L, RDW Std Deviation 51.2 H, RDW Coeff of Eyal 16.0 H, Plt Count 258, MPV 9.6, Neut % (Auto) Not Reportable, Absolute Neuts (auto) 6.6, Absolute Lymphs (auto) 0.77 L, Total Counted 100, Neutrophils % (Manual) 73 H, Band Neutrophils % 3, Lymphocytes % (Manual) 9 L, Monocytes % (Manual) 9, Eosinophils % (Manual) 2, Metamyelocytes % 3 H, Myelocytes % 1 H, Diff Path Review Reviewed, Platelet Estimate ADEQUATE, Anisocytosis RARE, Sodium 146 H, Potassium 4.4, Chloride 112 H, Carbon Dioxide 28.0, Anion Gap 6, BUN 80 H, Creatinine 1.90 H, Estim Creat Clear Calc 50.75, Est GFR (MDRD) Af Amer 45 L, Est GFR (MDRD) Non-Af 37 L, BUN/Creatinine Ratio 42.1 H, Glucose 160 H, Calcium 8.2 L, Phosphorus 3.1, Magnesium 2.6, Total Bilirubin 1.00, AST 181 H, ALT 142 H, Alkaline Phosphatase 113, Total Protein 6.4, Albumin 2.0 L, Globulin 4.4 H, Albumin/Globulin Ratio 0.5 L, TSH 2.33 03/08/24 04:47: Random Vancomycin 5.8 03/08/24 06:32: POC Glucose 130 H 03/08/24 11:34: POC Glucose 171 H 03/08/24 16:03: POC Glucose 136 H Micro: Microbiology 03/06/24 11:13 Urine Catheter - Jeff Urine Culture - Preliminary Culture exhibits no growth. 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 Culture - Preliminary GNR lactose surfboard maker 03/07/24 01:08 Blood Culture (Wb) - Left Hand Blood Culture - Preliminary GNR lactose surfboard maker Assessment & Plan Assessment/Plan (1) JOSE C (acute kidney injury): (2) Urinary retention: (3) Debility: PLAN: Plan 73-year-old gentleman with morbid obesity comes in with altered mental status, hypotension and discovered to have gram-negative boone sepsis. Sources likely urine or GI tract. He is also having esophageal dysphagia along with nausea and vomiting. Differential diagnosis does include gastroparesis secondary to sepsis in the setting of morbid obesity and diabetes. Also different diagnosis does include esophageal stricture, hiatal hernia, inflammation and upper GI tract and chronic kidney disease contributing to his upper GI symptoms. He should undergo an upper endoscopy to evaluate his upper GI tract. He was explained alternatives, risk, benefits include not withstanding bleeding, infection, sepsis, perforation, need for emergent urgent . He will have an ASA of 3. Charges/Coding Visit Charges Inpatient E&M: 06805 Init Hosp L3
[2024-03-08 22:08] LABS: Bedside Glucose 119 mg/dL (74-106)
[2024-03-09] VITALS (16 sets, daily range): BP systolic 117–160; BP diastolic 63–93; PULSE 60–81; RESP 18–30; TEMP 36.4–36.8; O2SAT 93–98; BMI 46.0
[2024-03-09] MEDS: Lactated Ringers 1,000 ML 100 ML IV ×3 (02:55→13:49)
[2024-03-09 04:06] LABS: Hematocrit 37.1 % (40-54); Hemoglobin 11.8 g/dL (13.0-16.5); Mean Corp Hgb Conc 31.8 g/dL (32-36); Mean Corpuscular Hgb 28.2 pg (27.0-32.0); Mean Corpuscular Volume 88.5 fL (80-94); Mean Platelet Vol. 9.8 fl (6.2-12.0); POSITIVE COUNT YES; POSITIVE MORPHOLOGY YES; Platelet Count 216 K/mm3 (150-450); RBC Distribution Width CV 16.2 % (11.6-14.6); RBC Distribution Width SD 52.4 fl (35.1-43.9); Red Blood Count 4.19 M/mm3 (4.6-6.2); White Blood Count 7.6 K/mm3 (4.4-11.0)
[2024-03-09 04:27] LABS: ALB/GLOB Ratio 0.4 RATIO (0.9-2.4); AST(SGOT) 113 U/L (15-37); Alanine Aminotransfer ALT/SGPT 102 U/L (16-61); Albumin, Serum 1.8 g/dL (3.2-5.0); Alkaline Phosphatase 97 U/L (45-117); Anion Gap 1 (5-15); BUN 44 mg/dL (7-18); BUN/Creat Ratio 38.9 RATIO (10-20); Calcium,Total 8.2 mg/dL (8.5-10.1); Chloride 112 mmol/L (98-107); Creatinine, Serum 1.13 mg/dL (0.70-1.30); EST Glomerular Filtration Rate 68 mL/min (>60); Est Glom Filt Rate - Afr Amer 82 mL/min (>60); Estimated Creatinine Clearance 83.26 ml/min; Globulin 4.1 g/dL (2.2-4.2); Glucose 124 mg/dL (74-106); Potassium 4.5 mmol/L (3.5-5.1); Protein, Total 5.9 g/dL (6.4-8.2); Sodium Level 144 mmol/L (136-145)
[2024-03-09] MEDS: Piperacil/Tazobactam 3.375 GM in 0.9% Normal Saline (50mL MB+) 50 ML IV (05:24)
[2024-03-09] MEDS: Heparin Injection (Vial) 5,000 UNIT/ML VIAL 5000 UNIT SC ×3 (05:29→21:10)
[2024-03-09 05:56] LABS: Differential Indicated MANUAL DIFF
[2024-03-09 06:00] LABS: Eosinophil 5 % (0-5); Lymphocyte 9 % (19-41); Metamyelocyte 4 % (0-1); Monocyte 4 % (0-10); Myelocyte 1 % (0-0); Neutrophil-Band 12 % (0-5); Neutrophil-Segmented 64 % (47-70); Promyelocyte 1 % (0-0); Total Cells Counted 100 (MANUAL DIFF)
[2024-03-09 06:02] LABS: Absolute Lymphocyte Count 0.68 X10^3/uL (0.83-4.51); Absolute Neutrophil Count 5.8 X10^3/uL (2.0-7.7)
[2024-03-09 06:56] LABS: Bedside Glucose 112 mg/dL (74-106)
--- NOTE | 2024-03-09 08:45 | OP.EGD_ITS ---
Patient Name: Jesús Montaño Procedure Date: 03/09/2024 7:30 AM Date of : 1950 Age: 73 Procedure: Upper GI endoscopy Indications: Dysphagia Providers: Chris rBar DO Medicines: Monitored Anesthesia Care Patient Profile: This is a 73 year old male. Refer to note in patient chart for documentation of history and physical. Patient has symptoms of dysphagia with both liquids and solids. Complications: No immediate complications. Procedure: Pre-Anesthesia Assessment: - Prior to the procedure, a History and Physical was performed, and patient medications and allergies were reviewed. The patient is competent. The risks and benefits of the procedure and the sedation options and risks were discussed with the patient. All questions were answered and informed consent was obtained. Patient identification and proposed procedure were verified by the physician in the pre-procedure area. Mental Status Examination: alert and oriented. Airway Examination: normal oropharyngeal airway and neck mobility. Respiratory Examination: clear to auscultation. CV Examination: normal. Prophylactic Antibiotics: The patient does not require prophylactic antibiotics. Prior Anticoagulants: The patient has taken no anticoagulant or antiplatelet agents. ASA Grade Assessment: III - A patient with severe systemic disease. After reviewing the risks and benefits, the patient was deemed in satisfactory condition to undergo the procedure. The anesthesia plan was to use monitored anesthesia care (MAC). Immediately prior to administration of medications, the patient was re-assessed for adequacy to receive sedatives. The heart rate, respiratory rate, oxygen saturations, blood pressure, adequacy of pulmonary ventilation, and response to care were monitored throughout the procedure. The physical status of the patient was re-assessed after the procedure. After obtaining informed consent, the endoscope was passed under direct vision. Throughout the procedure, the patient's blood pressure, pulse, and oxygen saturations were monitored continuously. The gastroscope was introduced through the mouth, and advanced to the second part of duodenum. The upper GI endoscopy was accomplished without difficulty. The patient tolerated the procedure well. Scope In: 8:27:26 AM Scope Out: 8:34:03 AM Total Procedure Duration Time 0 hours 6 minutes 37 seconds Findings: A low-grade of narrowing Schatzki ring was found at the cricopharyngeus. A guidewire was placed and the scope was withdrawn. Dilation was performed with a Savary dilator with no resistance at 60 Fr. The dilation site was examined following endoscope reinsertion and showed moderate mucosal disruption. Estimated blood loss was minimal. Mucosal changes including ringed esophagus and small-caliber esophagus were found in the upper third of the esophagus and in the middle third of the esophagus. Biopsies were obtained from the proximal and distal esophagus with cold forceps for histology of suspected eosinophilic esophagitis. Verification of patient identification for the specimen was done. Estimated blood loss was minimal. The Z-line was irregular and was found 42 cm from the incisors. Biopsies were taken with a cold forceps for histology. Verification of patient identification for the specimen was done. Estimated blood loss was minimal. A small hiatal hernia was present. No other significant abnormalities were identified in a careful examination of the stomach. The first portion of the duodenum was normal. Abnormal motility was noted in the lower third of the esophagus. The cricopharyngeus was normal. There is a decrease in motility of the esophageal body. The distal esophagus/lower esophageal sphincter is spastic, but gives up passage to the endoscope. Secondary peristaltic waves are noted. Impression: - Low-grade of narrowing Schatzki ring. Dilated. - Esophageal mucosal changes suggestive of eosinophilic esophagitis. - Z-line irregular, 42 cm from the incisors. Biopsied. - Small hiatal hernia. - Normal first portion of the duodenum. - Biopsies were taken with a cold forceps for evaluation of eosinophilic esophagitis. Recommendation: - Return patient to ICU for ongoing care. - Advance diet as tolerated. - Continue present medications. - Await pathology results. Procedure Code(s): --- Professional --- 64304, Esophagogastroduodenoscopy, flexible, transoral; with insertion of guide wire followed by passage of dilator(s) through esophagus over guide wire 40458, 59,51, Esophagogastroduodenoscopy, flexible, transoral; with biopsy, single or multiple CPT copyright 2021 [employer]. All rights reserved. The codes documented in this report are preliminary and upon educational coordinator review may be revised to meet current compliance requirements. Chris Brar DO 03/09/2024 8:45:02 AM This report has been signed electronically. Number of Addenda: 0 Note Initiated On: 03/09/2024 7:30 AM
--- NOTE | 2024-03-09 08:45 | OP.CCLET_ITS ---
03/09/2024 Sean Valencia Re : Upper GI endoscopy procedure for Jesús Montaño Deaverna Valencia This procedure was performed on Saturday, March 09, 2024. My impressions and recommendations are as follows: Impressions : - Low-grade of narrowing Schatzki ring. Dilated. - Esophageal mucosal changes suggestive of eosinophilic esophagitis. - Z-line irregular, 42 cm from the incisors. Biopsied. - Small hiatal hernia. - Normal first portion of the duodenum. - Biopsies were taken with a cold forceps for evaluation of eosinophilic esophagitis. Recommendations : - Return patient to ICU for ongoing care. - Advance diet as tolerated. - Continue present medications. - Await pathology results. My findings are described in the full procedure note, which is enclosed. If I can be of further assistance, please feel free to contact me at . Sincerely, Chris Brar, 03/09/2024 8:45:02 AM This report has been signed electronically.
[2024-03-09] MEDS: Ceftriaxone 2 GM in 0.9% Normal Saline (50mL MB+) 50 ML IV (09:28)
--- NOTE | 2024-03-09 10:38 | PN.CC_ITS ---
Objective Data Objective Data Vital Signs: Vital Signs Last response Temperature 36.4 C L 03/09/24 04:00 Temperature Source Temporal 03/09/24 04:00 Pulse Rate 76 03/09/24 10:00 Respiratory Rate 20 H 03/09/24 10:00 Respiratory Effort Normal, Non-Labored 03/09/24 04:00 Respiratory Depth Normal 03/09/24 04:00 Respiratory Pattern Normal 03/09/24 04:00 Blood Pressure 149/93 H 03/09/24 10:00 Blood Pressure Mean 111 03/09/24 10:00 Blood Pressure Source Monitor 03/09/24 10:00 Blood Pressure Position Semi-Fowlers 03/09/24 10:00 Blood Pressure Location Left Forearm 03/09/24 10:00 Pulse Ox 98 03/09/24 10:00 Oxygen Delivery Method Nasal Cannula 03/09/24 10:00 Oxygen Flow Rate (L/min) 2 03/09/24 10:00 I&O: I&O Last 24 Hours 03/08/24 03/08/24 03/09/24 11:59 23:59 11:59 Intake Total 665.57 / 1823.19 1157.62 / 1823.19 1663.33 / 1663.33 Output Total 3450 / 5100 850 / 5100 1550 / 1550 Balance -2784.43 / -3276.81 307.62 / -3276.81 113.33 / 113.33 I&O: Total Stay 03/06/24 09:43 thru 03/09/24 09:59 Intake Total 7675.34 Output Total 9050 Balance -1374.66 Current Meds Ordered / Administered: Current meds ordered / Administered Generic Name Dose Route Start Last Admin Trade Name Freq PRN Reason Stop Dose Admin Acetaminophen 650 mg 03/06/24 16:47 03/07/24 21:41 Acetaminophen 325 Mg Tablet PO 650 mg Q6H PRN PRN Administration Pain 1-10 Or Fever >100.7 Albuterol/Ipratropium 3 ml 03/07/24 00:35 Ipratropium/Albuterol Sulfate 3 Ml Ampul.Neb INHALATION Q4H PRN PRN SHORTNESS OF BREATH Atorvastatin Calcium 20 mg 03/06/24 22:00 03/08/24 21:44 Atorvastatin Calcium 20 Mg Tablet PO Not Given QHS INDIGO Dextrose 0 gm 03/06/24 16:47 Dextrose 50%-Water 25 Gm/50 Ml Disp.Syrin IV X1 PRN HYPOGLYCEMIA Protocol Finasteride 5 mg 03/07/24 10:00 03/08/24 07:59 Finasteride 5 Mg Tablet PO 5 mg DAILY INDIGO Administration Glucagon 1 mg 03/06/24 16:47 Glucagon 1 Mg/Ml Syringe IM X1 PRN HYPOGLYCEMIA Heparin Sodium (Porcine) 5,000 unit 03/06/24 22:00 03/09/24 05:29 Heparin Injection (Vial) 5,000 Unit/Ml Vial SC 5,000 unit Q8 INDIGO Administration Lactated Ringer's 1,000 mls @ 70 mls/hr 03/08/24 08:30 03/09/24 09:28 IV 100 mls/hr .[id number] INDIGO Administration Ceftriaxone Sodium 2 gm/ 50 mls @ 100 mls/hr 03/09/24 10:00 03/09/24 09:59 Sodium Chloride IV Infused Q24 INDIGO Infusion Insulin Human Lispro 0 unit 03/06/24 17:00 03/09/24 06:41 Insulin Lispro 100 Unit/Ml Insuln.Pen SC Not Given TIDAC [facility] Protocol Ondansetron HCl 4 mg 03/06/24 16:47 Ondansetron 4 Mg/2 Ml Vial IV Q8H PRN PRN NAUSEA/VOMITING Oxycodone HCl 2.5 - 5 mg 03/06/24 16:47 03/07/24 16:09 Oxycodone 5 Mg Tablet PO 5 mg Q4H PRN PRN Administration Pain Score 4-10 Pantoprazole Sodium 40 mg 03/07/24 10:00 03/08/24 07:59 Pantoprazole Sodium 40 Mg Tablet PO 40 mg DAILY [facility] Administration Sodium Chloride 10 - 40 ml 03/06/24 17:08 0.9% Saline Lock 10 Ml Syringe IV UD PRN SALINE FLUSH Tamsulosin HCl 0.4 mg 03/06/24 17:30 03/07/24 16:09 Tamsulosin Hcl 0.4 Mg Capsule PO 0.4 mg DAILY@1730 [facility] Administration Lab / Micro Data 03/09/24 03:55 03/09/24 03:55 Labs: Laboratory Results - last 24 hr 03/08/24 03:55: Diff Path Review Reviewed 03/08/24 11:34: POC Glucose 171 H 03/08/24 16:03: POC Glucose 136 H 03/08/24 21:49: POC Glucose 119 H 03/09/24 03:55: WBC 7.6, RBC 4.19 L, Hgb 11.8 L, Hct 37.1 L, MCV 88.5, MCH 28.2, MCHC 31.8 L, RDW Std Deviation 52.4 H, RDW Coeff of Eyal 16.2 H, Plt Count 216, MPV 9.8, Neut % (Auto) Not Reportable, Absolute Neuts (auto) 5.8, Absolute Lymphs (auto) 0.68 L, Total Counted 100, Neutrophils % (Manual) 64, Band Neutrophils % 12 H, Lymphocytes % (Manual) 9 L, Monocytes % (Manual) 4, Eosinophils % (Manual) 5, Metamyelocytes % 4 H, Myelocytes % 1 H, Promyelocytes % 1 H, Diff Path Review March, Sodium 144, Potassium 4.5, Chloride 112 H, Carbon Dioxide 31.0, Anion Gap 1 L, BUN 44 H, Creatinine 1.13, Estim Creat Clear Calc 83.26, Est GFR (MDRD) Af Amer 82, Est GFR (MDRD) Non-Af 68, BUN/Creatinine Ratio 38.9 H, Glucose 124 H, Calcium 8.2 L, Total Bilirubin 0.90, AST 113 H, ALT 102 H, Alkaline Phosphatase 97, Total Protein 5.9 L, Albumin 1.8 L, Globulin 4.1, Albumin/Globulin Ratio 0.4 L 03/09/24 06:38: POC Glucose 112 H Micro: Microbiology 03/06/24 11:13 Urine Catheter - Jeff Urine Culture - Final Culture exhibits no growth. 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 Assessment and plan: Critical Care Time: The entirety of this encounter was done via Telemedicine Subjective Subjective Telemedicine Pulmonary/ICU Progress Note Brief summary: 73 M who presented with weakness, initially a/w diarrhea & weak ness. Progressive worsening with increasing abdominal pain, shortness of breath and inability to urinate. In the emergency room, patient was noted to have a creatinine of 9.3 with sig UOP & relief in Sx after catheter placement. Pt remained hypotensive despite fluid resuscitation and was ultimately admitted for septic shock. GI consulted worsening esophageal dysphagia, failed swallowing study and frequent nausea vomiting after eating. Sub: Pt seen and examined. Up in chair. Eating/drinking well. Making urine. Off NEpi since yesterday afternoon. No new complaints. PE: General: Well developed, in no distress HEENT: anicteric Sclera, nl nose; supple neck, no masses Cardiovascular: S1/S2; No rubs, gallops; no displaced PM Respiratory: diminished; no crackles, wheezes, or rhonchi Abdominal: Non-tender; Non distended; hypoBS x 4; No Hepatosplenomegaly Extremities: Warm, well perfused; No clubbing, cyanosis; capillary refill < 2 sec Skin: intact, no rashes Neurological: no gross deficits appreciated; A&Ox3 A/P: #Acute hypox respiratory failure: cont O2 to keep sats ~90-92%; NIV/CPAP qHS #Septic shock: off NEpi; on ceftriaxone based on Sn #Bacteremia: cont above #JOSE C: 2* obstructive uropathy and prerenal azotemia; cont Jeff and further input from urology can be obtained #Acute toxic/metabolic encephalopathy #Morbid obesity/hypertension/diabetes mellitus/hyperlipidemia Agree with downgrade. Will sign off but available as needed. The entirety of the encounter was completed via telemedicine.
[2024-03-09] MEDS: Pantoprazole Sodium 40 MG Tablet PO (11:09)
[2024-03-09] MEDS: Finasteride 5 MG Tablet PO (11:09)
[2024-03-09 11:37] LABS: Bedside Glucose 122 mg/dL (74-106)
--- NOTE | 2024-03-09 12:18 | PN.HOSP_ITS ---
Reason for Visit Reason for Visit: Fall Subjective Subjective Tried to start diet yesterday however patient had some concerning issues with swallowing so speech therapy recommended GI consult. EGD done today and patient was found to have a Schatzki's ring which was dilated he also had mucosal changes suggestive of eosinophilic esophagitis. Okay to advance diet. Patient states overall he is doing much better. Clinically stable and off pressors for 24 hours so we will transfer out of the ICU. Objective Data Objective Data Vital Signs: Vital Signs Temp Pulse Resp BP Pulse Ox O2 Del Method O2 Flow Rate 98 F 73 23 H 138/76 H 97 Nasal Cannula 2 03/09/24 11:00 03/09/24 11:00 03/09/24 11:00 03/09/24 11:00 03/09/24 11:00 03/09/24 11:00 03/09/24 11:00 Oxygen Flow Rate (L/min) 2 Oxygen Delivery Method Nasal Cannula Weight: 141.6 kg Body Mass Index (BMI) 46.0 Intake & Output: Intake and Output for Last 24 Hours 03/07/24 03/08/24 03/09/24 23:59 23:59 23:59 Intake Total 2988.82 / 3116.92 1823.19 / 1823.19 1663.33 / 1663.33 Output Total 2750 / 4400 4300 / 5100 1550 / 1550 Balance 238.82 / -1283.08 -2476.81 / -3276.81 113.33 / 113.33 Lab / Micro Data 03/09/24 03:55 03/09/24 03:55 Labs: Laboratory Results - last 24 hr 03/08/24 03:55: Diff Path Review Reviewed 03/08/24 11:34: POC Glucose 171 H 03/08/24 16:03: POC Glucose 136 H 03/08/24 21:49: POC Glucose 119 H 03/09/24 03:55: WBC 7.6, RBC 4.19 L, Hgb 11.8 L, Hct 37.1 L, MCV 88.5, MCH 28.2, MCHC 31.8 L, RDW Std Deviation 52.4 H, RDW Coeff of Eyal 16.2 H, Plt Count 216, MPV 9.8, Neut % (Auto) Not Reportable, Absolute Neuts (auto) 5.8, Absolute Lymphs (auto) 0.68 L, Total Counted 100, Neutrophils % (Manual) 64, Band Neutrophils % 12 H, Lymphocytes % (Manual) 9 L, Monocytes % (Manual) 4, Eosinophils % (Manual) 5, Metamyelocytes % 4 H, Myelocytes % 1 H, Promyelocytes % 1 H, Diff Path Review March, Sodium 144, Potassium 4.5, Chloride 112 H, Carbon Dioxide 31.0, Anion Gap 1 L, BUN 44 H, Creatinine 1.13, Estim Creat Clear Calc 83.26, Est GFR (MDRD) Af Amer 82, Est GFR (MDRD) Non-Af 68, BUN/Creatinine Ratio 38.9 H, Glucose 124 H, Calcium 8.2 L, Total Bilirubin 0.90, AST 113 H, ALT 102 H, Alkaline Phosphatase 97, Total Protein 5.9 L, Albumin 1.8 L, Globulin 4.1, Albumin/Globulin Ratio 0.4 L 03/09/24 06:38: POC Glucose 112 H 03/09/24 11:07: POC Glucose 122 H Micro: Microbiology 03/06/24 11:13 Urine Catheter - Jeff Urine Culture - Final Culture exhibits no growth. 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 03/07/24 01:08 Blood Culture (Wb) - Left Hand Blood Culture - Final Escherichia coli 03/07/24 08:34 Mucosa - Nasopharyngeal Respiratory Panel (PCR) - Final 03/07/24 10:30 Mucosa - Nose Coronavirus COVID-19 PCR - Final 03/06/24 11:13 Urine Catheter - Jeff Legionella Antigen - Final 03/06/24 11:13 Urine Catheter - Jeff Streptococcus pneumoniae Antigen (M - Final Physical Exam Const alert, oriented x3, no apparent distress and well nourished; Negative for average body habitus or healthy appearing Constitutional Narrative: Morbidly obese, white male, sitting up in a chair at the bedside, patient appears much improved in the last 24 hours, no signs of confusion or shortness of breath, able to participate in conversation and stay awake, currently appears nontoxic HEENT normocephalic, head/scalp atraumatic and moist oral mucous membranes HEENT Narrative: Mallampati 3, no thrush Eyes Eyes Narrative: No scleral icterus Resp normal respiratory effort, no retractions, no use of accessory muscles and clear to auscultation bilaterally Resp Narrative: Diminished but clear Auscultation: Negative for rales, rhonchi or wheezes Cardio regular rate, regular rhythm, S1 normal heart sound, S2 normal heart sound, no murmurs, no rub, no gallops and no clicks GI normal to inspection, nondistended, normoactive bowel sounds, soft to palpation and non-tender GI Narrative: Large protuberant abdomen Extremity no clubbing, cyanosis or edema Extremity Narrative: Pedal and radial pulses are 2+ bilaterally Neuro oriented x3, moves all extremities and no focal motor deficits Speech: speech normal Psych affect normal Psych Narrative: Affect is strange, patient interacts appropriately and answers question, eye contact is good Assessment & Plan Assessment/Plan (1) Hypotension: QUALIFIERS: Hypotension type: unspecified hypotension type Qualified Code(s): I95.9 - Hypotension, unspecified (2) Acute bilateral obstructive uropathy: (3) Fall: (4) Acute renal failure: (5) Acute pain of right hip: (6) Anemia: (7) Hypoxia: (8) Septic shock: (9) Urinary retention: (10) Dysphagia: PLAN: Plan Septic shock secondary to E. coli bacteremia likely related to gut translocation -Off pressors for 24 hours and clinically stabilizing -Urine culture negative -2 of 2 blood cultures are showing a gram-negative boone but the lactose plant health manager -E. coli is fairly pansensitive so we will discontinue Zosyn and transition to ceftriaxone 2 g daily -Patient's hemodynamically stable and off pressors for 24 hours will transfer to [facility] JOSE C secondary to obstructive uropathy and sepsis -Resolved -Serum creatinine mission was 9.31 -Current serum creatinine is 1.13 -Discontinue IV fluids Dysphagia secondary to Schatzki's ring -Large emesis that was delayed after oral intake and speech therapy is concerned about doing modified barium swallow -GI was consulted for EGD -EGD done on 03/09/2024 and showed a Schatzki's ring which was dilated, findings were consistent with eosinophilic esophagitis and biopsies were taken -Speech therapy evaluated the patient and okay to start regular diet as patient tolerates -Will need outpatient follow-up with GI at discharge Hypoxia -Resolved -Will continue oxygen at night because highly suspect patient has obstructive sleep apnea Anemia -Hemoglobin has stabilized and is currently in the 11-12 range -Iron studies are suggestive of chronic disease and ferritin is elevated due to acute phase reactant with sepsis -Will monitor 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 -Continue Jeff -Continue proscar -Continue Flomax -Will need to maintain Jeff at discharge and follow-up as an outpatient with urology Toxic/metabolic encephalopathy -Resolved Generalized weakness/fall/hip pain -Imaging was performed and does not show any acute fractures -PT/OT following--> recommending placement at discharge and family is amenable -automation manager/social work consultation to assist with discharge planning--> list given to family--> patient will need pre-CERT at discharge Hypertension -Blood pressures are starting to creep up -If remain elevated will likely reintroduce antihypertensives tomorrow -Hold lisinopril -Hold home amlodipine DM-2 -A1c is well-controlled -AM fasting blood sugars 124 -Hold metformin due to renal function -SSI -Accu-Cheks as ordered -Cardiac/carb controlled diet Hyperlipidemia -Continue home statin Morbid obesity -BMI is 46.1 -Complicates treatment, prognosis, outcomes -Recommend weight loss DVT prophylaxis -Heparin subcu 3 times daily CODE STATUS -Full code as verified at the time of admission Charges/Coding Visit Charges Inpatient E&M: 15193 Subs Hosp L2
--- NOTE | 2024-03-09 12:47 | CASEMGMT ---
Addendum entered by Abimbola Bernardo 03/09/24 13:36: Social Work Pt's daughter Zuly called back. She asked for referrals to be made to inpt rehab and TCU. SW did explain earlier that pt may not be approved for rehab. They would like the referrals made anyway, to see if he would qualify. Zuly will let SW know other options Monday. DEVAN called the referral line for TCU/Rehab, message left for Morenita to review pt for both levels of care. SW will follow up on Monday. JORDEN Tolentino Original Note: Social Work SW spoke w/pt and daughters in room in regard to discharge plan. Pt's daughters would like pt to go somewhere for rehab, pt is agreeable. SW provided to pt and daughters a list of jail facilities via [employer] in network w/pt's insurance, in pt's preferred geographic area, and complete with quality and resource use data. SW explained to pt and family the precert process with insurance, did let them know that [employer] does tend to take a few days to give authorizations. SW asked the pt and family to provide 3 choices to SW and SW will make referrals. SW explained whichever facility can take pt will start the precert process. SW did also explain if pt improves enough to go home during this process we can change the plan to home. All state understanding. SW gave daughters Zuly and Lynette this SW's number to let SW know SNF choices, and SW will make referrals. SW will continue to follow. JORDEN Tolentino
[2024-03-09] MEDS: 0.9% Saline Lock 10 ML Syringe IV ×2 (13:45→21:11)
[2024-03-09 16:13] LABS: Bedside Glucose 167 mg/dL (74-106)
[2024-03-09] MEDS: Insulin Lispro 100 UNIT/ML INSULN.PEN SC (17:06)
[2024-03-09] MEDS: Tamsulosin HCl 0.4 MG Capsule PO (17:07)
[2024-03-09] MEDS: Atorvastatin Calcium 20 MG Tablet PO (21:10)
[2024-03-09 22:09] LABS: Bedside Glucose 140 mg/dL (74-106)
[2024-03-10 02:50] VITALS: BP 135/77; PULSE 73; RESP 16; TEMP 36.6; O2SAT 98
[2024-03-10 04:52] LABS: Absolute Lymphocyte Count 0.76 X10^3/uL (0.83-4.51); Basophil# 0.08 X10^3/uL; Basophil% 0.9 % (0-1); Eosinophil# 0.26 X10^3/uL; Eosinophils% 2.9 % (0-5); Hematocrit 41.5 % (40-54); Hemoglobin 12.5 g/dL (13.0-16.5); Lymphocyte # 0.76 X10^3/ul (0.83-4.51); Lymphocyte % 8.4 % (19-41); Mean Corp Hgb Conc 30.1 g/dL (32-36); Mean Corpuscular Hgb 27.3 pg (27.0-32.0); Mean Corpuscular Volume 90.6 fL (80-94); Mean Platelet Vol. 9.8 fl (6.2-12.0); Monocyte# 0.61 X10^3/uL; Monocyte% 6.7 % (0-10); NRBC Flagged by Analyzer 0 % (0-5); Neutrophil # 6.95 X10^3/uL (2.7-7.7); Neutrophil % 76.7 % (47-70); POSITIVE COUNT YES; Platelet Count 180 K/mm3 (150-450); RBC Distribution Width CV 16.1 % (11.6-14.6); RBC Distribution Width SD 53.4 fl (35.1-43.9); Red Blood Count 4.58 M/mm3 (4.6-6.2); White Blood Count 9.1 K/mm3 (4.4-11.0)
[2024-03-10 05:21] LABS: Differential Indicated SCAN CRITERIA MET
[2024-03-10 05:32] VITALS: BMI 46.0
[2024-03-10 05:38] LABS: ALB/GLOB Ratio 0.4 RATIO (0.9-2.4); AST(SGOT) 83 U/L (15-37); Alanine Aminotransfer ALT/SGPT 88 U/L (16-61); Albumin, Serum 1.8 g/dL (3.2-5.0); Alkaline Phosphatase 104 U/L (45-117); Anion Gap 2 (5-15); BUN 24 mg/dL (7-18); BUN/Creat Ratio 26.9 RATIO (10-20); Calcium,Total 7.9 mg/dL (8.5-10.1); Chloride 108 mmol/L (98-107); Creatinine, Serum 0.89 mg/dL (0.70-1.30); EST Glomerular Filtration Rate 89 mL/min (>60); Est Glom Filt Rate - Afr Amer 108 mL/min (>60); Estimated Creatinine Clearance 106.67 ml/min; Globulin 4.2 g/dL (2.2-4.2); Glucose 140 mg/dL (74-106); Potassium 4.5 mmol/L (3.5-5.1); Sodium Level 141 mmol/L (136-145)
[2024-03-10] MEDS: Heparin Injection (Vial) 5,000 UNIT/ML VIAL 5000 UNIT SC (06:09)
[2024-03-10 06:31] LABS: Bedside Glucose 131 mg/dL (74-106)
[2024-03-10 07:56] VITALS: BP 147/79; PULSE 63; RESP 16; TEMP 36.8; O2SAT 98
[2024-03-10 08:07] VITALS: O2SAT 95
[2024-03-10] MEDS: Ceftriaxone 2 GM in 0.9% Normal Saline (50mL MB+) 50 ML IV (09:51)
[2024-03-10] MEDS: Pantoprazole Sodium 40 MG Tablet PO (09:51)
[2024-03-10] MEDS: 0.9% Saline Lock 10 ML Syringe IV ×2 (09:51→21:19)
[2024-03-10] MEDS: Finasteride 5 MG Tablet PO (09:51)
[2024-03-10] MEDS: amLODIPine 10 MG Tablet PO (09:56)
--- NOTE | 2024-03-10 10:16 | PN.HOSP_ITS ---
Reason for Visit Reason for Visit: Fall Subjective Subjective Patient denies issues overnight. Appears to feel much better. Jeff still draining urine with few scattered clots but no significant hematuria. Patient has no complaints at this time. States swallowing is much better. Objective Data Objective Data Vital Signs: Vital Signs Temp Pulse Resp BP Pulse Ox O2 Del Method O2 Flow Rate 98.2 F 63 16 147/79 H 95 Nasal Cannula 2 03/10/24 07:56 03/10/24 07:56 03/10/24 07:56 03/10/24 07:56 03/10/24 08:07 03/10/24 08:07 03/10/24 02:50 Oxygen Flow Rate (L/min) 2 Oxygen Delivery Method Nasal Cannula Weight: 141.6 kg Body Mass Index (BMI) 46.0 Intake & Output: Intake and Output for Last 24 Hours 03/08/24 03/09/24 03/10/24 23:59 23:59 23:59 Intake Total 1823.19 / 1823.19 2676.50 / 2676.50 Output Total 4300 / 5100 2950 / 3500 1050 / 1050 Balance -2476.81 / -3276.81 -273.50 / -823.50 -1050 / -1050 Lab / Micro Data 03/10/24 04:27 03/10/24 04:27 Labs: Laboratory Results - last 24 hr 03/09/24 11:07: POC Glucose 122 H 03/09/24 15:51: POC Glucose 167 H 03/09/24 21:10: POC Glucose 140 H 03/10/24 04:27: WBC 9.1, RBC 4.58 L, Hgb 12.5 L, Hct 41.5, MCV 90.6, MCH 27.3, MCHC 30.1 L D, RDW Std Deviation 53.4 H, RDW Coeff of Eyal 16.1 H, Plt Count 180, MPV 9.8, Immature Gran % (Auto) 4.400 H, Neut % (Auto) 76.7 H, Lymph % (Auto) 8.4 L, [place] % (Auto) 6.7, Eos % (Auto) 2.9, Baso % (Auto) 0.9, Absolute Neuts (auto) 7.0, Absolute Lymphs (auto) 0.76 L, Nucleated RBC % 0, Sodium 141, Potassium 4.5, Chloride 108 H, Carbon Dioxide 31.0, Anion Gap 2 L, BUN 24 H, Creatinine 0.89, Estim Creat Clear Calc 106.67, Est GFR (MDRD) Af Amer 108, Est GFR (MDRD) Non-Af 89, BUN/Creatinine Ratio 26.9 H, Glucose 140 H, Calcium 7.9 L, Total Bilirubin 0.70, AST 83 H, ALT 88 H, Alkaline Phosphatase 104, Total Protein 6.0 L, Albumin 1.8 L, Globulin 4.2, Albumin/Globulin Ratio 0.4 L 03/10/24 06:09: POC Glucose 131 H Micro: Microbiology 03/06/24 11:13 Urine Catheter - Jeff Urine Culture - Final Culture exhibits no growth. 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 Culture - Final GNR lactose data network architect 03/07/24 01:08 Blood Culture (Wb) - Left Hand Blood Culture - Final Escherichia coli 03/07/24 08:34 Mucosa - Nasopharyngeal Respiratory Panel (PCR) - Final 03/07/24 10:30 Mucosa - Nose Coronavirus COVID-19 PCR - Final 03/06/24 11:13 Urine Catheter - Jeff Legionella Antigen - Final 03/06/24 11:13 Urine Catheter - Jeff Streptococcus pneumoniae Antigen (M - Final Physical Exam Const alert, oriented x3, no apparent distress and well nourished; Negative for average body habitus or healthy appearing Constitutional Narrative: Morbidly obese, white male, sitting up in bed, appears well, nontoxic, pleasant, appears comfortable HEENT normocephalic, head/scalp atraumatic and moist oral mucous membranes HEENT Narrative: Mallampati is 3, no thrush Resp normal respiratory effort, no retractions, no use of accessory muscles and clear to auscultation bilaterally Resp Narrative: Diminished but clear Auscultation: Negative for rales, rhonchi or wheezes Cardio regular rate, regular rhythm, S1 normal heart sound, S2 normal heart sound, no murmurs, no rub, no gallops and no clicks GI normal to inspection, nondistended, normoactive bowel sounds, soft to palpation and non-tender GI Narrative: Large protuberant abdomen Extremity no clubbing, cyanosis or edema Extremity Narrative: Pedal pulses are 2+ bilaterally Neuro oriented x3, moves all extremities and no focal motor deficits Neuro Narrative: Some generalized weakness noted at this time but no focal deficits Speech: speech normal Psych affect normal Psych Narrative: Affect is strange, patient interacts appropriately and answers question, eye contact is good Assessment & Plan Assessment/Plan (1) Hypotension: QUALIFIERS: Hypotension type: unspecified hypotension type Qualified Code(s): I95.9 - Hypotension, unspecified (2) Acute bilateral obstructive uropathy: (3) Fall: (4) Acute renal failure: (5) Acute pain of right hip: (6) Anemia: (7) Hypoxia: (8) Septic shock: (9) Urinary retention: (10) Dysphagia: PLAN: Plan Septic shock secondary to E. coli bacteremia likely related to gut translocation -Resolved -Urine culture negative -2 of 2 blood cultures are showing E. coli and I suspect this is GI t ranslocation -Continue ceftriaxone 2 g daily -Day 3 of 7 for antibiotics -Organism is very sensitive so should be able to complete antibiotics with orals at the time of discharge JOSE C secondary to obstructive uropathy and sepsis -Resolved -Patient will need to maintain Jeff at discharge and follow-up as an outpatient with urology Dysphagia secondary to Schatzki's ring -Resolved with treatment yesterday by GI -Large emesis that was delayed after oral intake and speech therapy is concerned about doing modified barium swallow -GI was consulted for EGD -EGD done on 03/09/2024 and showed a Schatzki's ring which was dilated, findings were consistent with eosinophilic esophagitis and biopsies were taken -Tolerating regular diet -Will need outpatient follow-up with GI at discharge Anemia -Hemoglobin has stabilized and is currently in the 11-12 range -Iron studies are suggestive of chronic disease and ferritin is elevated due to acute phase reactant with sepsis 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 -Continue Jeff -Continue proscar -Continue Flomax -Will need to maintain Jeff at discharge and follow-up as an outpatient with urology Generalized weakness/fall/hip pain -Imaging was performed and does not show any acute fractures -PT/OT following--> recommending placement at discharge and family is amenable -parts sales manager/social work consultation to assist with discharge planning--> list given to family and they would like rehab versus TCU--> case management/social work to follow-up further tomorrow--> patient will need pre-CERT at discharge Hypertension -Blood pressures are stabilizing -Restart home amlodipine -Hold lisinopril but if blood pressures continue to remain stable should be able to restart tomorrow DM-2 -A1c is well-controlled -AM fasting blood sugars 140 -Hold metformin due to renal function -SSI -Accu-Cheks as ordered -Cardiac/carb controlled diet Hyperlipidemia -Continue home statin Morbid obesity -BMI is 46.1 -Complicates treatment, prognosis, outcomes -Recommend weight loss DVT prophylaxis -Transition to Lovenox twice daily now that renal function is normalized CODE STATUS -Full code Charges/Coding Visit Charges Inpatient E&M: 25194 Subs Hosp L2
[2024-03-10] MEDS: Insulin Lispro 100 UNIT/ML INSULN.PEN SC ×2 (11:08→16:04)
[2024-03-10 11:20] VITALS: BP 148/87; PULSE 74; RESP 16; TEMP 36.3; O2SAT 95
[2024-03-10 11:31] LABS: Bedside Glucose 207 mg/dL (74-106)
[2024-03-10 16:13] VITALS: BP 134/77; PULSE 67; RESP 16; TEMP 36.8; O2SAT 96
[2024-03-10 16:25] LABS: Bedside Glucose 181 mg/dL (74-106)
[2024-03-10] MEDS: Tamsulosin HCl 0.4 MG Capsule PO (17:27)
[2024-03-10 20:00] VITALS: BP 127/65; PULSE 70; RESP 16; TEMP 36.6; O2SAT 97
[2024-03-10] MEDS: Atorvastatin Calcium 20 MG Tablet PO (21:19)
[2024-03-10] MEDS: Enoxaparin 40 MG/0.4 ML Syringe SC (21:20)
[2024-03-10 21:45] LABS: Bedside Glucose 163 mg/dL (74-106)
--- NOTE | 2024-03-11 | ESO_PTH ---
PATIENT: RISHI STRATTON LOC: MS3 U#:[id number] AGE/SX: 73/M ROOM: [facility] [place] RE03/06/[address]: Dr. Troy Watson MD : 1950 BED: 1 DIS: 03/14/2024 SPEC #: [id number] RECD: 03/11/24 08:25 STATUS: WALLY GONZALES #: [id number] MOSHE: 03/11/24 00:[address]: Chris Brar DEPT: SURGICAL PATHOLOGY RECD BY: Frantz Bocanegra ENTERED: 03/11/24 10:56 SP TYPE: ESOPH BX OTHR DR: MD Dr. Aries Mathis DO Dr. Kathryn Lee, DO Dr. William Lago, MD Tissues: A - Esophagus, NOS B - Esophageal mucous membrane Procedures: Special Stain Group II Surgery Specimen Level IV Alcian Blue/PAS (control) Comments: @ Ordering doctor for SUIV edited from to @ marlena COOPER at 03/11/24 112 @ Submitting doctor edited from to @ marlena COOPER at 03/11/24 1127 HEADER OPERATION: EGD, biopsy, dilation PRE-OP DIAGNOSIS: Dysphagia TISSUE SUBMITTED: A- Distal esophagus biopsy, B- Random esophagus biopsy MICROSCOPIC DIAGNOSIS A. Distal esophagus, biopsy: Gastroesophageal junctional mucosa with chronic inflammation. 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 No evidence of dysplasia. See comment. B. Esophagus, random biopsy: No pathologic change. AM/mr 03/12/2024 COMMENT A. Immunohistochemistry ([id number]) supports the above diagnosis. Alcian blue/PAS stain with matched control supports the above diagnosis. MICROSCOPIC DESCRIPTION Slides are reviewed. GROSS DESCRIPTION A. Received in fixative is one container labeled with the patient's name and designated Distal esophagus biopsy. The specimen consists of two irregular fragments of light steve soft tissue that in aggregate measure 1.0 x 0.5 x 0.25 cm. The specimen is totally submitted in one cassette. B. Received in fixative is one container labeled with the patient's name and designated Random esophagus biopsy. The specimen consists of two irregular fragments of light steve soft tissue that in aggregate measure 1.0 x 0.5 x 0.25 cm. The specimen is totally submitted in one cassette. 03/11/2024 TC: 3 CPT: 32124c9,66452
--- NOTE | 2024-03-11 | IMM_PTH ---
PATIENT: RISHI STRATTON LOC: MS3 U#:[id number] AGE/SX: 73/M [place]OM: [facility] [place]/06/[address]: Dr. Troy Watson MD : 1950 BED: 1 DIS: 03/14/2024 SPEC #: [id number] RECD: 03/12/24 11:58 STATUS: SOUDennis REQ #: [id number] MOSHE: 03/11/24 00:[address]: Chris Brar DEPT: IMMUNOHISTOCHEMISTRY RECD BY: Ascencion Abraham ENTERED: 03/12/24 11:58 SP TYPE: IMMUNO OTHR DR: MD Dr. Aries Mathis DO Dr. Kathryn Lee, DO Dr. William Lago, MD Tissues: A - Esophagus, NOS Procedures: P53 (initial) KI-67 (initial) PHYSICIAN & INSTITUTION [place] [phone] SPECIMEN INFORMATION: Tissue Source: A- Distal esophagus biopsy Clinical Info: Dysphagia Specimen Number: [id number] CPT code: 50669,53721 METHODOLOGY: Deparaffinized sections of prefer/formalin-fixed tissue or PAP/DQ stained slides are incubated with monoclonal/polyclonal antibodies/oligonucleotide probes. Localization is made via biotin free immunoperoxidase method. Appropriate controls are performed and reacted as expected. Results on target cell population are indicated in the following table: RESULTS: ANTIBODY / CLONE RESULT P53 (DO-7) positive, wild type pattern Ki-67 (30-9) positive, low These tests were developed and their performance characteristics determined by [facility]. They may not have been cleared or approved by the U.S. Food and Drug Administration. The FDA has determined that such clearance or approval is not necessary. The above immunohistochemical/dualISH markers are ordered and reviewed by the Pathologist. INTERPRETATION: A. Distal esophagus, biopsy: No evidence of dysplasia. KISHORE/ 03/13/24
[2024-03-11 02:00] VITALS: BP 140/71; PULSE 66; RESP 18; TEMP 36.6; O2SAT 98
[2024-03-11 05:38] VITALS: BMI 46.0
[2024-03-11 06:22] LABS: Hematocrit 37.7 % (40-54); Mean Corp Hgb Conc 31.8 g/dL (32-36); Mean Corpuscular Volume 88.1 fL (80-94); Mean Platelet Vol. 9.3 fl (6.2-12.0); Platelet Count 185 K/mm3 (150-450); RBC Distribution Width CV 15.4 % (11.6-14.6); RBC Distribution Width SD 49.7 fl (35.1-43.9); Red Blood Count 4.28 M/mm3 (4.6-6.2); White Blood Count 10.2 K/mm3 (4.4-11.0)
[2024-03-11 06:27] LABS: Bedside Glucose 138 mg/dL (74-106)
[2024-03-11 06:45] LABS: Anion Gap 1 (5-15); BUN 16 mg/dL (7-18); BUN/Creat Ratio 21.9 RATIO (10-20); Calcium,Total 7.9 mg/dL (8.5-10.1); Chloride 107 mmol/L (98-107); Creatinine, Serum 0.73 mg/dL (0.70-1.30); EST Glomerular Filtration Rate 113 mL/min (>60); Est Glom Filt Rate - Afr Amer 136 mL/min (>60); Estimated Creatinine Clearance 118.57 ml/min; Glucose 152 mg/dL (74-106); Potassium 4.2 mmol/L (3.5-5.1); Sodium Level 139 mmol/L (136-145)
[2024-03-11 07:09] LABS: Scan Indicated on CBC? Y/N NO
[2024-03-11 08:00] VITALS: BP 151/78; PULSE 73; RESP 18; TEMP 36.6; O2SAT 98
[2024-03-11] MEDS: Ceftriaxone 2 GM in 0.9% Normal Saline (50mL MB+) 50 ML IV (10:37)
[2024-03-11] MEDS: amLODIPine 10 MG Tablet PO (10:37)
[2024-03-11] MEDS: Pantoprazole Sodium 40 MG Tablet PO (10:38)
[2024-03-11] MEDS: Finasteride 5 MG Tablet PO (10:38)
[2024-03-11] MEDS: Enoxaparin 40 MG/0.4 ML Syringe SC ×2 (10:38→21:10)
--- NOTE | 2024-03-11 10:59 | PCM.PN.HOSP ---
Reason for Visit Reason for Visit: Diagnoses Sepsis, unspecified organism (03/06/24) Anemia, unspecified (03/06/24) Hypotension, unspecified (03/06/24) Pain in right hip (03/06/24) Obstructive and reflux uropathy, unspecified (03/06/24) Acute kidney failure, unspecified (03/06/24) Hypoxemia (03/06/24) Dysphagia, unspecified (03/06/24) Retention of urine, unspecified (03/06/24) Other malaise (03/06/24) Severe sepsis with septic shock (03/06/24) Unspecified fall, initial encounter (03/06/24) Subjective Subjective tient is a 73-year-old gentleman admitted with altered mental status. Diagnosed with acute kidney injury secondary to obstructive uropathy Objective Data Objective Data Vital Signs: Vital Signs Temp Pulse Resp BP Pulse Ox O2 Del Method O2 Flow Rate 97.9 F 66 18 140/71 H 98 Nasal Cannula 2 03/11/24 02:00 03/11/24 02:00 03/11/24 02:00 03/11/24 02:00 03/11/24 02:00 03/11/24 02:00 03/11/24 02:00 Oxygen Flow Rate (L/min) 2 Oxygen Delivery Method Nasal Cannula Weight: 141.4 kg Body Mass Index (BMI) 46.0 Intake & Output: Intake and Output for Last 24 Hours 03/09/24 03/10/24 03/11/24 23:59 23:59 23:59 Intake Total 2676.50 / 2676.50 750 / 750 Output Total 2950 / 3500 1650 / 2700 1650 / 1650 Balance -273.50 / -823.50 -900 / -1950 -1650 / -1650 Lab / Micro Data 03/11/24 06:07 03/11/24 06:07 Labs: Laboratory Results - last 24 hr 03/10/24 11:04: POC Glucose 207 H 03/10/24 16:02: POC Glucose 181 H 03/10/24 21:18: POC Glucose 163 H 03/11/24 06:07: WBC 10.2, RBC 4.28 L, Hgb 12.0 L, Hct 37.7 L, MCV 88.1, MCH 28.0, MCHC 31.8 L D, RDW Std Deviation 49.7 H, RDW Coeff of Eyal 15.4 H, Plt Count 185, MPV 9.3, Sodium 139, Potassium 4.2, Chloride 107, Carbon Dioxide 31.0, Anion Gap 1 L, BUN 16, Creatinine 0.73, Estim Creat Clear Calc 118.57, Est GFR (MDRD) Af Amer 136, Est GFR (MDRD) Non-Af 113, BUN/Creatinine Ratio 21.9 H, Glucose 152 H, Calcium 7.9 L 03/11/24 06:09: POC Glucose 138 H Micro: Microbiology 03/06/24 11:13 Urine Catheter - Jeff Urine Culture - Final Culture exhibits no growth. 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 Culture - Final GNR lactose cardroom drawing runner 03/07/24 01:08 Blood Culture (Wb) - Left Hand Blood Culture - Final Escherichia coli 03/07/24 08:34 Mucosa - Nasopharyngeal Respiratory Panel (PCR) - Final 03/07/24 10:30 Mucosa - Nose Coronavirus COVID-19 PCR - Final 03/06/24 11:13 Urine Catheter - Jeff Legionella Antigen - Final 03/06/24 11:13 Urine Catheter - Jeff Streptococcus pneumoniae Antigen (M - Final Physical Exam Narrative GENERAL: cooperative HEENT: Atraumatic; normocephalic EYES; Anicteric, Normal Conjunctiva NECK; supple, normal thyroid, RESPIRATORY: Diminished to auscultation CARDIOVASCULAR: Regular S1 S2, GI: soft, normoactive bowel sounds, : No Renal angle tenderness; Jeff catheter in place EXTREMITIES: No edema, no clubbing, MUSCULOSKELETAL: no muscle wasting NEURO: Awake; no lateralizing signs. SKIN: No Rash PSYCH; Flat affect Assessment & Plan Assessment/Plan (1) Acute bilateral obstructive uropathy: PLAN: Plan Patient is a 73-year-old gentleman admitted with altered mental status. Diagnosed with acute kidney injury secondary to obstructive uropathy 1. Septic shock ? Secondary to E. coli bacteremia septic shock has since resolved patient grew E. coli. Remains on appropriate antibiotic therapy 2. Acute cystitis ? With E. coli managed with ceftriaxone plan is to complete 10-day antibiotic therapy 3. Acute kidney injury ? Due to combination of obstructive uropathy as well as sepsis. Patient had Jeff catheter placed significant improvement in kidney function since then 4. Dysphagia ? Patient underwent EGD demonstrated Schatzki ring. So far tolerating regular diet 5. Class III obesity with BMI of 46 ? Complicating care weight loss advised 6. Obstructive uropathy ? Patient has a Jeff catheter in place subsequently treated with tamsulosin and finasteride. Plan is for patient to follow-up with urology as outpatient 7. Anemia - Secondary to chronic disorder monitoring H&H and transfuse if patient becomes symptomatic or hemoglobin falls below 7 8. Physical deconditioning - Requested for PT OT eval and hospital social worker to assist with discharge planning 9.Diabetes mellitus type 2 ? Patient is on metformin held on admission placed on Accu-Cheks ACHS with sliding scale coverage 10. Hypertension - Blood pressure controlled, home medications continued with dose adjustment as needed 11. Dyslipidemia -Patient is on statin therapy, continued at home dose 12. DVT prophylaxis ? SC Lovenox Time spent in the patient's overall evaluation,decision-making process, review of diagnostic data, adjustment of management, discussion with other providers, nursing nursing and ancillary staff involved in patient's care documentation, 35 Minutes Charges/Coding Visit Charges Inpatient E&M: 72124 Subs Hosp L2
--- NOTE | 2024-03-11 11:06 | CASEMGMT ---
Social Work SW spoke w/pt, daughters in room in regard to POA for healthcare. They state that they are both POAs, Lynette is listed first but they both help w/decisions. They will bring in document, but did ask for blank forms as well. Blank forms provided to pt and daughters. JORDEN Tolentino
--- NOTE | 2024-03-11 11:32 | CASEMGMT ---
Addendum entered by Darlene Benitez 03/11/24 13:01: Updates provided to [facility] per facility request. TERESA Dickinson Original Note: Social Work- sent referral to [facility] via [facility] per pt/pt daughter's request while [facility]. TERESA Dickinson
[2024-03-11] MEDS: Insulin Lispro 100 UNIT/ML INSULN.PEN SC ×2 (12:06→17:04)
[2024-03-11 12:24] LABS: Bedside Glucose 242 mg/dL (74-106)
--- NOTE | 2024-03-11 12:32 | CASEMGMT ---
Addendum entered by Abimbola Bernardo 03/11/24 13:40: Social Work SW spoke w/daughters, they still would prefer [facility] Rehab, are aware that we are still waiting to hear back. They are going to check out SNFs in the area at this time. They asked about paying privately for rehab if insurance denies. SW explained do not know the cost per day, last time this SW checked the cost is $1500/day. Daughters state understanding. The referral to [facility] rehab is still pending, SW called again to check. Pt is accepted at [facility], [facility] and . SW will continue to follow. JORDEN Tolentino Original Note: Social Work SW had called [facility] in TCU/Rehab to review referral, she is to let SW know. Pt's daughters are here, SW spoke w/daughters in room in regard to discharge plan. They very much would prefer rehab, either here or in the community, before considering SNF. Rehab list not needed as daughter already had choices picked if [facility] rehab cannot take pt. Pt and family's choices are: 1. [facility] 2. [facility] rehab hospital in [place] 3. [facility] rehab in [place] 4. [facility] in [place] 5. Rehab in [place]. SW explained will let our rehab know that we want to try in rehab, if they cannot take will make referrals to other rehab facilities as indicated, will start w/[facility]. Daughters state understanding. SW did reiterate to daughters that pt does not have a qualifying rehab diagnosis so insurance may not precert it, they state understanding. SW called [facility] rehab, let [facility] know if rehab cannot take pt here, they want to try rehab in the community before TCU. DEVAN Colon did send a referral to [facility] as well. SW will continue to follow. JORDEN Tolentino
[2024-03-11 13:05] VITALS: O2SAT 94
[2024-03-11 13:47] VITALS: RESP 18
--- NOTE | 2024-03-11 15:03 | CASEMGMT ---
Social Work- SW updated pt daughter, Zuly, that rehab unit will accept pt with caution that [facility] may not approve d/t pt's progress in PT. Zuly was advised of private pay rate as requested. Zuly reports that she will check in with [facility] on private pay rate as well. SW provided education on process of referrals, pre-certifications, and insurance payors vs private pay. DEVAN will continue to communicate with Zuly as more information regarding acceptance becomes available. Plan: [facility] Rehab pending precert TERESA Dickinson
[2024-03-11] MEDS: Tamsulosin HCl 0.4 MG Capsule PO (17:04)
--- NOTE | 2024-03-11 17:25 | CASEMGMT ---
Social Work SW spoke w/daughter Zuly. She states that if pt does not get approved by insurance for inpt rehab, and they do an appeal and the denial is upheld, they want to private pay for rehab. SW let her know pt accepted at [facility], [facility] and [facility]. SW will get referral to [facility] as that one did not yet go through. SW did explain let the other beds go as we are trying for precert here, so if pt denied inpt rehab here will need to go back to the other facilities to see who may be able to still take him. Daughter Zuly states understanding. SW sent referral to [facility]. SW will continue to follow. JORDEN Tolentino
[2024-03-11 17:51] LABS: Bedside Glucose 227 mg/dL (74-106)
[2024-03-11 21:00] VITALS: BP 125/67; PULSE 69; RESP 18; TEMP 36.8; O2SAT 92
[2024-03-11] MEDS: Atorvastatin Calcium 20 MG Tablet PO (21:10)
[2024-03-11 21:32] LABS: Bedside Glucose 218 mg/dL (74-106)
[2024-03-12 03:00] VITALS: BP 128/66; PULSE 72; RESP 18; TEMP 36.6; O2SAT 92
[2024-03-12 06:00] VITALS: BMI 45.8
[2024-03-12 07:23] LABS: Hematocrit 38.8 % (40-54); Hemoglobin 12.2 g/dL (13.0-16.5); Mean Corp Hgb Conc 31.4 g/dL (32-36); Mean Corpuscular Hgb 27.4 pg (27.0-32.0); Mean Corpuscular Volume 87.2 fL (80-94); Mean Platelet Vol. 9.6 fl (6.2-12.0); POSITIVE COUNT YES; POSITIVE MORPHOLOGY YES; Platelet Count 189 K/mm3 (150-450); RBC Distribution Width CV 15.2 % (11.6-14.6); RBC Distribution Width SD 48.6 fl (35.1-43.9); Red Blood Count 4.45 M/mm3 (4.6-6.2); White Blood Count 12.1 K/mm3 (4.4-11.0)
[2024-03-12 07:25] LABS: Differential Indicated MANUAL DIFF
[2024-03-12 07:35] VITALS: O2SAT 95
[2024-03-12 07:46] LABS: Basophil 1 % (0-1); Eosinophil 6 % (0-5); Lymphocyte 10 % (19-41); Monocyte 3 % (0-10); Neutrophil-Band 2 % (0-5); Neutrophil-Segmented 78 % (47-70); Platelet Estimate ADEQUATE (ADEQ); Total Cells Counted 100 (MANUAL DIFF)
[2024-03-12 07:47] LABS: Red Cell Morphology NORM C+C NORMAL (NORM C&C)
[2024-03-12 07:48] LABS: Anion Gap 1 (5-15); BUN 11 mg/dL (7-18); BUN/Creat Ratio 16.7 RATIO (10-20); Chloride 108 mmol/L (98-107); Creatinine, Serum 0.66 mg/dL (0.70-1.30); EST Glomerular Filtration Rate 127 mL/min (>60); Est Glom Filt Rate - Afr Amer 153 mL/min (>60); Estimated Creatinine Clearance 118.04 ml/min; Glucose 158 mg/dL (74-106); Magnesium 1.6 mg/dL (1.6-2.6); Phosphorus 1.8 mg/dL (2.5-4.9); Potassium 4.4 mmol/L (3.5-5.1); Sodium Level 139 mmol/L (136-145)
[2024-03-12] MEDS: Pantoprazole Sodium 40 MG Tablet PO (07:48)
[2024-03-12] MEDS: Enoxaparin 40 MG/0.4 ML Syringe SC ×2 (07:48→22:05)
[2024-03-12] MEDS: Finasteride 5 MG Tablet PO (07:48)
[2024-03-12] MEDS: amLODIPine 10 MG Tablet PO (07:48)
[2024-03-12 07:49] LABS: Absolute Lymphocyte Count 1.21 X10^3/uL (0.83-4.51); Absolute Neutrophil Count 9.7 X10^3/uL (2.0-7.7); Lymphocyte # 1.21 X10^3/ul (0.83-4.51); Neutrophil # 9.68 X10^3/uL (2.7-7.7)
--- NOTE | 2024-03-12 07:53 | PCM.PN.HOSP ---
Reason for Visit Reason for Visit: Diagnoses Sepsis, unspecified organism (03/06/24) Anemia, unspecified (03/06/24) Hypotension, unspecified (03/06/24) Pain in right hip (03/06/24) Obstructive and reflux uropathy, unspecified (03/06/24) Acute kidney failure, unspecified (03/06/24) Hypoxemia (03/06/24) Dysphagia, unspecified (03/06/24) Retention of urine, unspecified (03/06/24) Other malaise (03/06/24) Severe sepsis with septic shock (03/06/24) Unspecified fall, initial encounter (03/06/24) Subjective Subjective Patient seen appears to be in good spirits. Pain is tolerable. Awaiting transfer to inpatient rehab unit pending insurance approval Objective Data Objective Data Vital Signs: Vital Signs Temp Pulse Resp BP Pulse Ox O2 Del Method O2 Flow Rate 98 F 72 18 128/66 H 95 Room Air 2 03/12/24 03:00 03/12/24 03:00 03/12/24 03:00 03/12/24 03:00 03/12/24 07:35 03/12/24 07:35 03/11/24 02:00 Oxygen Flow Rate (L/min) 2 Oxygen Delivery Method Room Air Weight: 140.3 kg Body Mass Index (BMI) 45.8 Intake & Output: Intake and Output for Last 24 Hours 03/10/24 03/11/24 03/12/24 23:59 23:59 23:59 Intake Total 750 / 750 1600 / 1600 Output Total 1650 / 2700 3350 / 3900 550 / 550 Balance -900 / -1950 -1750 / -2300 -550 / -550 Lab / Micro Data 03/12/24 07:09 03/12/24 07:09 Labs: Laboratory Results - last 24 hr 03/11/24 12:04: POC Glucose 242 H 03/11/24 17:02: POC Glucose 227 H 03/11/24 21:13: POC Glucose 218 H 03/12/24 07:09: WBC 12.1 H, RBC 4.45 L, Hgb 12.2 L, Hct 38.8 L, MCV 87.2, MCH 27.4, MCHC 31.4 L, RDW Std Deviation 48.6 H, RDW Coeff of Eyal 15.2 H, Plt Count 189, MPV 9.6, Neut % (Auto) Not Reportable, Absolute Neuts (auto) 9.7 H, Absolute Lymphs (auto) 1.21, Total Counted 100, Neutrophils % (Manual) 78 H, Band Neutrophils % 2, Lymphocytes % (Manual) 10 L, Monocytes % (Manual) 3, Eosinophils % (Manual) 6 H, Basophils % (Manual) 1, Diff Path Review March, Platelet Estimate ADEQUATE, RBC Morphology NORM C+C, Sodium 139, Potassium 4.4, Chloride 108 H, Carbon Dioxide 30.0, Anion Gap 1 L, BUN 11, Creatinine 0.66 L, Estim Creat Clear Calc 118.04, Est GFR (MDRD) Af Amer 153, Est GFR (MDRD) Non-Af 127, BUN/Creatinine Ratio 16.7, Glucose 158 H, Calcium 8.0 L, Phosphorus 1.8 L, Magnesium 1.6 Micro: Microbiology 03/06/24 11:13 Urine Catheter - Jeff Urine Culture - Final Culture exhibits no growth. 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 Culture - Final GNR lactose full stack engineer 03/07/24 01:08 Blood Culture (Wb) - Left Hand Blood Culture - Final Escherichia coli 03/07/24 08:34 Mucosa - Nasopharyngeal Respiratory Panel (PCR) - Final 03/07/24 10:30 Mucosa - Nose Coronavirus COVID-19 PCR - Final 03/06/24 11:13 Urine Catheter - Jeff Legionella Antigen - Final 03/06/24 11:13 Urine Catheter - Jeff Streptococcus pneumoniae Antigen (M - Final Physical Exam Narrative GENERAL: cooperative HEENT: Atraumatic; normocephalic EYES; Anicteric, Normal Conjunctiva NECK; supple, normal thyroid, RESPIRATORY: Diminished to auscultation CARDIOVASCULAR: Regular S1 S2, GI: soft, normoactive bowel sounds, : No Renal angle tenderness; Jeff catheter in place EXTREMITIES: No edema, no clubbing, MUSCULOSKELETAL: no muscle wasting NEURO: Awake; no lateralizing signs. SKIN: No Rash PSYCH; Flat affect Assessment & Plan Assessment/Plan (1) Acute bilateral obstructive uropathy: PLAN: Plan Patient is a 73-year-old gentleman admitted with altered mental status. Diagnosed with acute kidney injury secondary to obstructive uropathy 1. Septic shock ? Secondary to E. coli bacteremia septic shock has since resolved patient grew E. coli. Remains on appropriate antibiotic therapy ? 03/12/2024 septic shock resolved patient remained stable 2. Acute cystitis ? With E. coli managed with ceftriaxone plan is to complete 10-day antibiotic therapy ? 03/12/2024 patient has tolerated antibiotic therapy so far this switch to p.o. cefdinir 3. Acute kidney injury ? Due to combination of obstructive uropathy as well as sepsis. Patient had Jeff catheter placed significant improvement in kidney function since then 4. Dysphagia ? Patient underwent EGD demonstrated Schatzki ring. So far tolerating regular diet 5. Class III obesity with BMI of 46 ? Complicating care weight loss advised 6. Obstructive uropathy ? Patient has a Jeff catheter in place subsequently treated with tamsulosin and finasteride. Plan is for patient to follow-up with urology as outpatient 7. Anemia - Secondary to chronic disorder monitoring H&H and transfuse if patient becomes symptomatic or hemoglobin falls below 7 8. Physical deconditioning - Requested for PT OT eval and social services technician to assist with discharge planning 9.Diabetes mellitus type 2 ? Patient is on metformin held on admission placed on Accu-Cheks ACHS with sliding scale coverage 10. Hypertension - Blood pressure controlled, home medications continued with dose adjustment as needed 11. Dyslipidemia -Patient is on statin therapy, continued at home dose 12. DVT prophylaxis ? SC Lovenox Time spent in the patient's overall evaluation,decision-making process, review of diagnostic data, adjustment of management, discussion with other providers, nursing nursing and ancillary staff involved in patient's care documentation, 35 Minutes Charges/Coding Visit Charges Inpatient E&M: 22614 Subs Hosp L2
[2024-03-12 08:09] LABS: Bedside Glucose 150 mg/dL (74-106)
[2024-03-12 08:50] VITALS: BP 144/69; PULSE 76; RESP 16; TEMP 36.9; O2SAT 95
[2024-03-12] MEDS: Cefdinir 300 MG Capsule PO ×2 (09:58→22:05)
[2024-03-12] MEDS: Insulin Lispro 100 UNIT/ML INSULN.PEN SC ×2 (10:52→16:20)
[2024-03-12 11:12] LABS: Bedside Glucose 215 mg/dL (74-106)
[2024-03-12 11:18] VITALS: BP 132/68; PULSE 80; RESP 16; TEMP 36.9; O2SAT 94
--- NOTE | 2024-03-12 12:25 | CASEMGMT ---
Social Work SW did let pt and daughters know the facility in [place] does not allow private pay. They went to [facility] today, and they do allow private pay. Daughter Zuly states she needs to call to find out the cost, she is going to call this afternoon. SW did let them know if they go private pay here will need to pay a week up front, they are aware of cost. SW did speak w/them about pt going home vs inpt rehab if pt continues to improve. Daughters still want pt to go to inpt rehab, at least for a week. Plan continues to be inpt rehab, if pt denied will appeal, if still denied will private pay most likely here vs [facility]. JORDEN Tolentino
--- NOTE | 2024-03-12 13:08 | EX.PCM.PN.GI ---
Subjective Subjective Patient continues to do well in regard to his swallowing. He denies any pain with swallowing or any dysphagia with solids or liquids. And has had no more vomiting episodes. Objective Data Objective Data Vital Signs: Vital Signs Temp Pulse Resp BP Pulse Ox O2 Del Method O2 Flow Rate 98.4 F 80 16 132/68 H 94 Room Air 2 03/12/24 11:18 03/12/24 11:18 03/12/24 11:18 03/12/24 11:18 03/12/24 11:18 03/12/24 11:18 03/11/24 02:00 Oxygen Flow Rate (L/min) 2 Oxygen Delivery Method Room Air Weight: 309 lb 4.937 oz Body Mass Index (BMI) 45.8 Intake & Output: Intake and Output for Last 24 Hours 03/10/24 03/11/24 03/12/24 23:59 23:59 23:59 Intake Total 750 / 750 1600 / 1600 250 / 250 Output Total 1650 / 2700 3350 / 3900 550 / 550 Balance -900 / -1950 -1750 / -2300 -300 / -300 Lab / Micro Data 03/12/24 07:09 03/12/24 07:09 Labs: Laboratory Results - last 24 hr 03/11/24 17:02: POC Glucose 227 H 03/11/24 21:13: POC Glucose 218 H 03/12/24 07:09: WBC 12.1 H, RBC 4.45 L, Hgb 12.2 L, Hct 38.8 L, MCV 87.2, MCH 27.4, MCHC 31.4 L, RDW Std Deviation 48.6 H, RDW Coeff of Eyal 15.2 H, Plt Count 189, MPV 9.6, Neut % (Auto) Not Reportable, Absolute Neuts (auto) 9.7 H, Absolute Lymphs (auto) 1.21, Total Counted 100, Neutrophils % (Manual) 78 H, Band Neutrophils % 2, Lymphocytes % (Manual) 10 L, Monocytes % (Manual) 3, Eosinophils % (Manual) 6 H, Basophils % (Manual) 1, Diff Path Review March, Platelet Estimate ADEQUATE, RBC Morphology NORM C+C, Sodium 139, Potassium 4.4, Chloride 108 H, Carbon Dioxide 30.0, Anion Gap 1 L, BUN 11, Creatinine 0.66 L, Estim Creat Clear Calc 118.04, Est GFR (MDRD) Af Amer 153, Est GFR (MDRD) Non-Af 127, BUN/Creatinine Ratio 16.7, Glucose 158 H, Calcium 8.0 L, Phosphorus 1.8 L, Magnesium 1.6 03/12/24 07:43: POC Glucose 150 H 03/12/24 10:51: POC Glucose 215 H Micro: Microbiology 03/06/24 11:13 Urine Catheter - Jeff Urine Culture - Final Culture exhibits no growth. 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 Culture - Final GNR lactose director of officiating 03/07/24 01:08 Blood Culture (Wb) - Left Hand Blood Culture - Final Escherichia coli 03/07/24 08:34 Mucosa - Nasopharyngeal Respiratory Panel (PCR) - Final 03/07/24 10:30 Mucosa - Nose Coronavirus COVID-19 PCR - Final 03/06/24 11:13 Urine Catheter - Jeff Legionella Antigen - Final 03/06/24 11:13 Urine Catheter - Jeff Streptococcus pneumoniae Antigen (M - Final Physical Exam Narrative GENERAL: cooperative HEENT: Atraumatic; normocephalic EYES; Anicteric, Normal Conjunctiva NECK; supple, normal thyroid, RESPIRATORY: Diminished to auscultation CARDIOVASCULAR: Regular S1 S2, GI: soft, normoactive bowel sounds, : No Renal angle tenderness; Jeff catheter in place EXTREMITIES: No edema, no clubbing, MUSCULOSKELETAL: no muscle wasting NEURO: Awake; no lateralizing signs. SKIN: No Rash PSYCH; Flat affect Assessment & Plan Assessment/Plan (1) Hypotension: QUALIFIERS: Hypotension type: unspecified hypotension type Qualified Code(s): I95.9 - Hypotension, unspecified (2) Acute bilateral obstructive uropathy: (3) Fall: (4) Acute renal failure: (5) Acute pain of right hip: (6) Anemia: (7) Hypoxia: (8) Septic shock: (9) Urinary retention: (10) Dysphagia: PLAN: Plan 73-year-old with obesity, anemia chronic disease, acute kidney injury in the setting of CKD presents with altered mental status and discovered to have sepsis. That has been resolved but I was consulted for esophageal dysphagia Dysphagia secondary to Schatzki's ring -Large emesis that was delayed after oral intake and speech therapy is concerned about doing modified barium swallow -EGD done on 03/09/2024 and showed a Schatzki's ring which was dilated, findings were consistent with eosinophilic esophagitis and biopsies were taken -Speech therapy evaluated the patient and okay to start regular diet as patient tolerates -Will need outpatient follow-up with GI at discharge to complete the workup and make sure he does not have gastroparesis or esophageal dysmotility disorder - Charges/Coding Visit Charges Inpatient E&M: 57162 Subs Hosp L2
[2024-03-12 15:09] LABS: Pathologist Review Reviewed
[2024-03-12 15:21] LABS: Pathologist Review Reviewed
[2024-03-12 15:27] VITALS: BP 145/71; PULSE 72; RESP 16; TEMP 37; O2SAT 96
[2024-03-12 16:38] LABS: Bedside Glucose 288 mg/dL (74-106)
[2024-03-12] MEDS: Tamsulosin HCl 0.4 MG Capsule PO (17:10)
--- NOTE | 2024-03-12 17:50 | EX.PCM.PN.GI ---
Subjective Subjective Patient continues to not have any problems with swallowing. He denies any abdominal pain. He denies any problems with his bowels. Overall he is doing a lot better. Objective Data Objective Data Vital Signs: Vital Signs Temp Pulse Resp BP Pulse Ox O2 Del Method O2 Flow Rate 98.6 F 72 16 145/71 H 96 Room Air 2 03/12/24 15:27 03/12/24 15:27 03/12/24 15:27 03/12/24 15:27 03/12/24 15:27 03/12/24 15:27 03/11/24 02:00 Oxygen Flow Rate (L/min) 2 Oxygen Delivery Method Room Air Weight: 309 lb 4.937 oz Body Mass Index (BMI) 45.8 Intake & Output: Intake and Output for Last 24 Hours 03/10/24 03/11/24 03/12/24 23:59 23:59 23:59 Intake Total 750 / 750 1600 / 1600 650 / 650 Output Total 1650 / 2700 3350 / 3900 550 / 550 Balance -900 / -1950 -1750 / -2300 100 / 100 Lab / Micro Data 03/12/24 07:09 03/12/24 07:09 Labs: Laboratory Results - last 24 hr 03/09/24 03:55: Diff Path Review Reviewed 03/11/24 17:02: POC Glucose 227 H 03/11/24 21:13: POC Glucose 218 H 03/12/24 07:09: WBC 12.1 H, RBC 4.45 L, Hgb 12.2 L, Hct 38.8 L, MCV 87.2, MCH 27.4, MCHC 31.4 L, RDW Std Deviation 48.6 H, RDW Coeff of Eyal 15.2 H, Plt Count 189, MPV 9.6, Neut % (Auto) Not Reportable, Absolute Neuts (auto) 9.7 H, Absolute Lymphs (auto) 1.21, Total Counted 100, Neutrophils % (Manual) 78 H, Band Neutrophils % 2, Lymphocytes % (Manual) 10 L, Monocytes % (Manual) 3, Eosinophils % (Manual) 6 H, Basophils % (Manual) 1, Diff Path Review Reviewed, Platelet Estimate ADEQUATE, RBC Morphology NORM C+C, Sodium 139, Potassium 4.4, Chloride 108 H, Carbon Dioxide 30.0, Anion Gap 1 L, BUN 11, Creatinine 0.66 L, Estim Creat Clear Calc 118.04, Est GFR (MDRD) Af Amer 153, Est GFR (MDRD) Non-Af 127, BUN/Creatinine Ratio 16.7, Glucose 158 H, Calcium 8.0 L, Phosphorus 1.8 L, Magnesium 1.6 03/12/24 07:43: POC Glucose 150 H 03/12/24 10:51: POC Glucose 215 H 03/12/24 16:19: POC Glucose 288 H Micro: Microbiology 03/06/24 11:13 Urine Catheter - Jeff Urine Culture - Final Culture exhibits no growth. 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 Culture - Final GNR lactose manager trade marketing 03/07/24 01:08 Blood Culture (Wb) - Left Hand Blood Culture - Final Escherichia coli 03/07/24 08:34 Mucosa - Nasopharyngeal Respiratory Panel (PCR) - Final 03/07/24 10:30 Mucosa - Nose Coronavirus COVID-19 PCR - Final 03/06/24 11:13 Urine Catheter - Jeff Legionella Antigen - Final 03/06/24 11:13 Urine Catheter - Jeff Streptococcus pneumoniae Antigen (M - Final Physical Exam Narrative GENERAL: cooperative HEENT: Atraumatic; normocephalic EYES; Anicteric, Normal Conjunctiva NECK; supple, normal thyroid, RESPIRATORY: Diminished to auscultation CARDIOVASCULAR: Regular S1 S2, GI: soft, normoactive bowel sounds, : No Renal angle tenderness; Jeff catheter in place EXTREMITIES: No edema, no clubbing, MUSCULOSKELETAL: no muscle wasting NEURO: Awake; no lateralizing signs. SKIN: No Rash PSYCH; Flat affect Assessment & Plan Assessment/Plan (1) Hypotension: QUALIFIERS: Hypotension type: unspecified hypotension type Qualified Code(s): I95.9 - Hypotension, unspecified (2) Acute bilateral obstructive uropathy: (3) Fall: (4) Acute renal failure: (5) Acute pain of right hip: (6) Anemia: (7) Hypoxia: (8) Septic shock: (9) Urinary retention: (10) Dysphagia: PLAN: Plan 73-year-old with obesity, anemia chronic disease, acute kidney injury in the setting of CKD presents with altered mental status and discovered to have sepsis. That has been resolved but I was consulted for esophageal dysphagia Dysphagia secondary to Schatzki's ring -Large emesis that was delayed after oral intake and speech therapy is concerned about doing modified barium swallow -EGD done on 03/09/2024 and showed a Schatzki's ring which was dilated, findings were consistent with eosinophilic esophagitis and biopsies were taken -Speech therapy evaluated the patient and okay to start regular diet as patient tolerates -Will need outpatient follow-up with GI at discharge to complete the workup and make sure he does not have gastroparesis or esophageal dysmotility disorder - Charges/Coding Visit Charges Inpatient E&M: 52529 Subs Hosp L3
[2024-03-12 21:15] VITALS: BP 125/64; PULSE 75; RESP 16; TEMP 36.5; O2SAT 96
[2024-03-12] MEDS: Atorvastatin Calcium 20 MG Tablet PO (22:05)
[2024-03-13 00:52] LABS: Bedside Glucose 292 mg/dL (74-106)
[2024-03-13 03:55] VITALS: BP 127/75; PULSE 75; RESP 18; TEMP 36.7; O2SAT 93
[2024-03-13 05:51] VITALS: BMI 45.7
[2024-03-13 06:23] LABS: Hematocrit 38.1 % (40-54); Hemoglobin 11.9 g/dL (13.0-16.5); Mean Corp Hgb Conc 31.2 g/dL (32-36); Mean Corpuscular Hgb 27.4 pg (27.0-32.0); Mean Corpuscular Volume 87.8 fL (80-94); Mean Platelet Vol. 9.2 fl (6.2-12.0); POSITIVE COUNT YES; POSITIVE MORPHOLOGY YES; Platelet Count 206 K/mm3 (150-450); RBC Distribution Width SD 48.3 fl (35.1-43.9); Red Blood Count 4.34 M/mm3 (4.6-6.2)
[2024-03-13 06:34] LABS: Differential Indicated MANUAL DIFF
[2024-03-13] MEDS: Insulin Lispro 100 UNIT/ML INSULN.PEN SC ×3 (06:50→17:24)
[2024-03-13 07:07] LABS: Anion Gap 1 (5-15); BUN 10 mg/dL (7-18); BUN/Creat Ratio 14.1 RATIO (10-20); Calcium,Total 8.1 mg/dL (8.5-10.1); Chloride 107 mmol/L (98-107); Creatinine, Serum 0.71 mg/dL (0.70-1.30); EST Glomerular Filtration Rate 116 mL/min (>60); Est Glom Filt Rate - Afr Amer 141 mL/min (>60); Estimated Creatinine Clearance 117.95 ml/min; Glucose 193 mg/dL (74-106); Potassium 4.2 mmol/L (3.5-5.1); Sodium Level 138 mmol/L (136-145)
[2024-03-13 07:15] LABS: Eosinophil 2 % (0-5); Lymphocyte 14 % (19-41); Metamyelocyte 3 % (0-1); Monocyte 1 % (0-10); Neutrophil-Segmented 80 % (47-70); Total Cells Counted 100 (MANUAL DIFF)
[2024-03-13 07:17] LABS: Bedside Glucose 164 mg/dL (74-106)
[2024-03-13 07:17] LABS: Absolute Lymphocyte Count 1.68 X10^3/uL (0.83-4.51); Absolute Neutrophil Count 9.6 X10^3/uL (2.0-7.7); Anisocytosis RARE; Platelet Estimate ADEQUATE (ADEQ)
--- NOTE | 2024-03-13 07:49 | PCM.PN.HOSP ---
Reason for Visit Reason for Visit: Diagnoses Sepsis, unspecified organism (03/06/24) Anemia, unspecified (03/06/24) Hypotension, unspecified (03/06/24) Pain in right hip (03/06/24) Obstructive and reflux uropathy, unspecified (03/06/24) Acute kidney failure, unspecified (03/06/24) Hypoxemia (03/06/24) Dysphagia, unspecified (03/06/24) Retention of urine, unspecified (03/06/24) Other malaise (03/06/24) Severe sepsis with septic shock (03/06/24) Unspecified fall, initial encounter (03/06/24) Subjective Subjective Patient seen had a relatively uneventful night. Transferred to the inpatient rehab unit still pending. Patient still remains deconditioned hemoglobin is low at 11.9 no indication for transfusion Objective Data Objective Data Vital Signs: Vital Signs Temp Pulse Resp BP Pulse Ox O2 Del Method O2 Flow Rate 98.0 F 75 18 127/75 H 93 Room Air 2 03/13/24 03:55 03/13/24 03:55 03/13/24 03:55 03/13/24 03:55 03/13/24 03:55 03/13/24 03:55 03/11/24 02:00 Oxygen Flow Rate (L/min) 2 Oxygen Delivery Method Room Air Weight: 140.1 kg Body Mass Index (BMI) 45.7 Intake & Output: Intake and Output for Last 24 Hours 03/11/24 03/12/24 03/13/24 23:59 23:59 23:59 Intake Total 1600 / 1600 650 / 1050 400 / 400 Output Total 3350 / 3900 1550 / 2550 1350 / 1350 Balance -1750 / -2300 -900 / -1500 -950 / -950 Lab / Micro Data 03/13/24 06:04 03/13/24 06:04 Labs: Laboratory Results - last 24 hr 03/09/24 03:55: Diff Path Review Reviewed 03/12/24 07:09: Absolute Neuts (auto) 9.7 H, Absolute Lymphs (auto) 1.21, Total Counted 100, Neutrophils % (Manual) 78 H, Band Neutrophils % 2, Lymphocytes % (Manual) 10 L, Monocytes % (Manual) 3, Eosinophils % (Manual) 6 H, Basophils % (Manual) 1, Diff Path Review Reviewed, Platelet Estimate ADEQUATE, RBC Morphology NORM C+C 03/12/24 07:43: POC Glucose 150 H 03/12/24 10:51: POC Glucose 215 H 03/12/24 16:19: POC Glucose 288 H 03/12/24 22:04: POC Glucose 292 H 03/13/24 06:04: WBC 12.0 H, RBC 4.34 L, Hgb 11.9 L, Hct 38.1 L, MCV 87.8, MCH 27.4, MCHC 31.2 L, RDW Std Deviation 48.3 H, RDW Coeff of Eyal 15.0 H, Plt Count 206, MPV 9.2, Neut % (Auto) Not Reportable, Absolute Neuts (auto) 9.6 H, Absolute Lymphs (auto) 1.68, Total Counted 100, Neutrophils % (Manual) 80 H, Lymphocytes % (Manual) 14 L, Monocytes % (Manual) 1, Eosinophils % (Manual) 2, Metamyelocytes % 3 H, Platelet Estimate ADEQUATE, Anisocytosis RARE, Sodium 138, Potassium 4.2, Chloride 107, Carbon Dioxide 30.0, Anion Gap 1 L, BUN 10, Creatinine 0.71, Estim Creat Clear Calc 117.95, Est GFR (MDRD) Af Amer 141, Est GFR (MDRD) Non-Af 116, BUN/Creatinine Ratio 14.1, Glucose 193 H, Calcium 8.1 L 03/13/24 06:48: POC Glucose 164 H Micro: Microbiology 03/06/24 11:13 Urine Catheter - Jeff Urine Culture - Final Culture exhibits no growth. 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 Culture - Final GNR lactose cooker loader 03/07/24 01:08 Blood Culture (Wb) - Left Hand Blood Culture - Final Escherichia coli 03/07/24 08:34 Mucosa - Nasopharyngeal Respiratory Panel (PCR) - Final 03/07/24 10:30 Mucosa - Nose Coronavirus COVID-19 PCR - Final 03/06/24 11:13 Urine Catheter - Jeff Legionella Antigen - Final 03/06/24 11:13 Urine Catheter - Jeff Streptococcus pneumoniae Antigen (M - Final Physical Exam Narrative GENERAL: cooperative HEENT: Atraumatic; normocephalic EYES; Anicteric, Normal Conjunctiva NECK; supple, normal thyroid, RESPIRATORY: Diminished to auscultation CARDIOVASCULAR: Regular S1 S2, GI: soft, normoactive bowel sounds, : No Renal angle tenderness; Jeff catheter in place EXTREMITIES: No edema, no clubbing, MUSCULOSKELETAL: no muscle wasting NEURO: Awake; no lateralizing signs. SKIN: No Rash PSYCH; Flat affect Assessment & Plan Assessment/Plan (1) Acute bilateral obstructive uropathy: PLAN: Plan Patient is a 73-year-old gentleman admitted with altered mental status. Diagnosed with acute kidney injury secondary to obstructive uropathy 1. Septic shock ? Secondary to E. coli bacteremia septic shock has since resolved patient grew E. coli. Remains on appropriate antibiotic therapy ? 03/12/2024 septic shock resolved patient remained stable 2. Acute cystitis ? With E. coli managed with ceftriaxone plan is to complete 10-day antibiotic therapy ? 03/12/2024 patient has tolerated antibiotic therapy so far this switch to p.o. cefdinir 3. Acute kidney injury ? Due to combination of obstructive uropathy as well as sepsis. Patient had Jeff catheter placed significant improvement in kidney function since then 4. Dysphagia ? Patient underwent EGD demonstrated Schatzki ring. So far tolerating regular diet 5. Class III obesity with BMI of 46 ? Complicating care weight loss advised 6. Obstructive uropathy ? Patient has a Jeff catheter in place subsequently treated with tamsulosin and finasteride. Plan is for patient to follow-up with urology as outpatient 7. Anemia - Secondary to chronic disorder monitoring H&H and transfuse if patient becomes symptomatic or hemoglobin falls below 7 8. Physical deconditioning - Requested for PT OT eval and hospice social worker to assist with discharge planning ? 03/13/2024 patient has tolerated physical therapy well so far 9.Diabetes mellitus type 2 ? Patient is on metformin held on admission placed on Accu-Cheks ACHS with sliding scale coverage 10. Hypertension - Blood pressure controlled, home medications continued with dose adjustment as needed 11. Dyslipidemia -Patient is on statin therapy, continued at home dose 12. DVT prophylaxis ? SC Lovenox Time spent in the patient's overall evaluation,decision-making process, review of diagnostic data, adjustment of management, discussion with other providers, nursing nursing and ancillary staff involved in patient's care documentation, 35 Minutes Charges/Coding Visit Charges Inpatient E&M: 40840 Subs Hosp L2
[2024-03-13 08:23] VITALS: O2SAT 94
[2024-03-13 08:25] VITALS: O2SAT 94
[2024-03-13 09:55] VITALS: BP 141/63; PULSE 78; RESP 20; TEMP 36.3; O2SAT 96
[2024-03-13] MEDS: Enoxaparin 40 MG/0.4 ML Syringe SC ×2 (10:15→21:35)
[2024-03-13] MEDS: Cefdinir 300 MG Capsule PO ×2 (10:16→21:36)
[2024-03-13] MEDS: amLODIPine 10 MG Tablet PO (10:16)
[2024-03-13] MEDS: Finasteride 5 MG Tablet PO (10:17)
[2024-03-13] MEDS: Pantoprazole Sodium 40 MG Tablet PO (10:17)
[2024-03-13 12:05] LABS: Bedside Glucose 236 mg/dL (74-106)
[2024-03-13 14:12] VITALS: BP 145/69; PULSE 78; RESP 18; TEMP 36.6; O2SAT 94
--- NOTE | 2024-03-13 15:56 | CASEMGMT ---
Social Work SW received message that insurance intends to deny inpatient rehab stay at [facility] [place]. Peer to Peer offered. SW updated physician who is agreeable to complete Peer to Peer. SW scheduled peer to peer and Kailyn physician to call [facility] physician between 9 and 11 am on 03/14. Physician updated. Phone call to pt daughter Lynette and updated on the above. Lynette is appreciative of Peer to Peer and states that if pt is denied, pt family will private pay for inpatient rehab at [facility]. Morenita in [place] notified. DEVAN to follow up tomorrow after peer to peer completed. TERESA Multani
--- NOTE | 2024-03-13 16:56 | PN.GI_ITS ---
Subjective Subjective Patient is still not having any problems with swallowing solids or liquids at this time. He is tolerating antiacid therapy without any side effects such as diarrhea. Objective Data Objective Data Vital Signs: Vital Signs Temp Pulse Resp BP Pulse Ox O2 Del Method O2 Flow Rate 97.8 F 78 18 145/69 H 94 Room Air 2 03/13/24 14:12 03/13/24 14:12 03/13/24 14:12 03/13/24 14:12 03/13/24 14:12 03/13/24 14:12 03/11/24 02:00 Oxygen Flow Rate (L/min) 2 Oxygen Delivery Method Room Air Weight: 308 lb 13.882 oz Body Mass Index (BMI) 45.7 Intake & Output: Intake and Output for Last 24 Hours 03/11/24 03/12/24 03/13/24 23:59 23:59 23:59 Intake Total 1600 / 1600 650 / 1050 1050 / 1050 Output Total 3350 / 3900 1550 / 2550 1800 / 1800 Balance -1750 / -2300 -900 / -1500 -750 / -750 Lab / Micro Data 03/13/24 06:04 03/13/24 06:04 Labs: Laboratory Results - last 24 hr 03/12/24 22:04: POC Glucose 292 H 03/13/24 06:04: WBC 12.0 H, RBC 4.34 L, Hgb 11.9 L, Hct 38.1 L, MCV 87.8, MCH 27.4, MCHC 31.2 L, RDW Std Deviation 48.3 H, RDW Coeff of Eyal 15.0 H, Plt Count 206, MPV 9.2, Neut % (Auto) Not Reportable, Absolute Neuts (auto) 9.6 H, Absolute Lymphs (auto) 1.68, Total Counted 100, Neutrophils % (Manual) 80 H, Lymphocytes % (Manual) 14 L, Monocytes % (Manual) 1, Eosinophils % (Manual) 2, Metamyelocytes % 3 H, Platelet Estimate ADEQUATE, Anisocytosis RARE, Sodium 138, Potassium 4.2, Chloride 107, Carbon Dioxide 30.0, Anion Gap 1 L, BUN 10, Creatinine 0.71, Estim Creat Clear Calc 117.95, Est GFR (MDRD) Af Amer 141, Est GFR (MDRD) Non-Af 116, BUN/Creatinine Ratio 14.1, Glucose 193 H, Calcium 8.1 L 03/13/24 06:48: POC Glucose 164 H 03/13/24 11:43: POC Glucose 236 H Micro: Microbiology 03/06/24 11:13 Urine Catheter - Jeff Urine Culture - Final Culture exhibits no growth. 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 03/07/24 01:08 Blood Culture (Wb) - Left Hand Blood Culture - Final Escherichia coli 03/07/24 08:34 Mucosa - Nasopharyngeal Respiratory Panel (PCR) - Final 03/07/24 10:30 Mucosa - Nose Coronavirus COVID-19 PCR - Final 03/06/24 11:13 Urine Catheter - Jeff Legionella Antigen - Final 03/06/24 11:13 Urine Catheter - Jeff Streptococcus pneumoniae Antigen (M - Final Physical Exam Narrative GENERAL: cooperative HEENT: Atraumatic; normocephalic EYES; Anicteric, Normal Conjunctiva NECK; supple, normal thyroid, RESPIRATORY: Diminished to auscultation CARDIOVASCULAR: Regular S1 S2, GI: soft, normoactive bowel sounds, : No Renal angle tenderness; Jeff catheter in place EXTREMITIES: No edema, no clubbing, MUSCULOSKELETAL: no muscle wasting NEURO: Awake; no lateralizing signs. SKIN: No Rash PSYCH; Flat affect Assessment & Plan Assessment/Plan (1) Hypotension: QUALIFIERS: Hypotension type: unspecified hypotension type Qualified Code(s): I95.9 - Hypotension, unspecified (2) Acute bilateral obstructive uropathy: (3) Fall: (4) Acute renal failure: (5) Acute pain of right hip: (6) Anemia: (7) Hypoxia: (8) Septic shock: (9) Urinary retention: (10) Dysphagia: PLAN: Plan 73-year-old with obesity, anemia chronic disease, acute kidney injury in the setting of CKD presents with altered mental status and discovered to have sep sis. 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 Currently ranging at 11.9. He has not shown any signs of GI bleeding at this time. He is on PPI therapy. Continue to monitor hemoglobin. - Charges/Coding Visit Charges Inpatient E&M: 96222 Subs Hosp L3
[2024-03-13] MEDS: Tamsulosin HCl 0.4 MG Capsule PO (17:25)
[2024-03-13 17:45] LABS: Bedside Glucose 236 mg/dL (74-106)
[2024-03-13 21:26] VITALS: BP 142/66; PULSE 76; RESP 18; TEMP 37.1; O2SAT 94
[2024-03-13] MEDS: Atorvastatin Calcium 20 MG Tablet PO (21:35)
[2024-03-13] MEDS: 0.9% Saline Lock 10 ML Syringe IV (21:38)
[2024-03-13 21:59] LABS: Bedside Glucose 228 mg/dL (74-106)
[2024-03-14 03:20] VITALS: BP 137/67; PULSE 92; RESP 15; TEMP 36.2; O2SAT 97
[2024-03-14 04:00] VITALS: RESP 15
[2024-03-14 06:00] VITALS: BMI 45.7
[2024-03-14] MEDS: Insulin Lispro 100 UNIT/ML INSULN.PEN SC ×2 (06:34→11:39)
[2024-03-14 06:38] LABS: Hematocrit 37.2 % (40-54); Hemoglobin 11.8 g/dL (13.0-16.5); Mean Corp Hgb Conc 31.7 g/dL (32-36); Mean Corpuscular Hgb 27.7 pg (27.0-32.0); Mean Corpuscular Volume 87.3 fL (80-94); Mean Platelet Vol. 9.1 fl (6.2-12.0); POSITIVE COUNT YES; POSITIVE MORPHOLOGY YES; Platelet Count 221 K/mm3 (150-450); RBC Distribution Width CV 15.3 % (11.6-14.6); RBC Distribution Width SD 48.5 fl (35.1-43.9); Red Blood Count 4.26 M/mm3 (4.6-6.2)
[2024-03-14 06:57] LABS: Anion Gap 2 (5-15); BUN 10 mg/dL (7-18); BUN/Creat Ratio 14.5 RATIO (10-20); Calcium,Total 8.4 mg/dL (8.5-10.1); Chloride 106 mmol/L (98-107); Creatinine, Serum 0.69 mg/dL (0.70-1.30); EST Glomerular Filtration Rate 120 mL/min (>60); Est Glom Filt Rate - Afr Amer 145 mL/min (>60); Estimated Creatinine Clearance 117.95 ml/min; Glucose 183 mg/dL (74-106); Potassium 4.3 mmol/L (3.5-5.1); Sodium Level 138 mmol/L (136-145)
[2024-03-14 07:03] LABS: Bedside Glucose 167 mg/dL (74-106)
[2024-03-14 07:04] LABS: Differential Indicated MANUAL DIFF
[2024-03-14 07:37] VITALS: BP 145/73; PULSE 85; RESP 18; TEMP 36.6; O2SAT 95
[2024-03-14 07:45] LABS: Eosinophil 3 % (0-5); Lymphocyte 7 % (19-41); Metamyelocyte 1 % (0-1); Monocyte 3 % (0-10); Neutrophil-Band 3 % (0-5); Neutrophil-Segmented 83 % (47-70); Platelet Estimate ADEQUATE (ADEQ); Total Cells Counted 100 (MANUAL DIFF)
[2024-03-14 07:46] LABS: Polychromasia RARE; Red Cell Morphology N CYTIC NORMAL (NORM C&C)
[2024-03-14 07:47] LABS: Absolute Lymphocyte Count 0.85 X10^3/uL (0.83-4.51); Absolute Neutrophil Count 10.5 X10^3/uL (2.0-7.7); Lymphocyte # 0.85 X10^3/ul (0.83-4.51); Neutrophil # 10.49 X10^3/uL (2.7-7.7)
[2024-03-14 07:48] LABS: Pathologist Review May foll
[2024-03-14] MEDS: Cefdinir 300 MG Capsule PO (09:01)
[2024-03-14] MEDS: Enoxaparin 40 MG/0.4 ML Syringe SC (09:01)
[2024-03-14] MEDS: Finasteride 5 MG Tablet PO (09:01)
[2024-03-14] MEDS: amLODIPine 10 MG Tablet PO (09:01)
[2024-03-14] MEDS: Pantoprazole Sodium 40 MG Tablet PO (09:01)
[2024-03-14 09:05] VITALS: O2SAT 94
--- NOTE | 2024-03-14 09:36 | PN.HOSP_ITS ---
Reason for Visit Reason for Visit: Diagnoses Sepsis, unspecified organism (03/06/24) Anemia, unspecified (03/06/24) Hypotension, unspecified (03/06/24) Pain in right hip (03/06/24) Obstructive and reflux uropathy, unspecified (03/06/24) Acute kidney failure, unspecified (03/06/24) Hypoxemia (03/06/24) Dysphagia, unspecified (03/06/24) Retention of urine, unspecified (03/06/24) Other malaise (03/06/24) Severe sepsis with septic shock (03/06/24) Unspecified fall, initial encounter (03/06/24) Subjective Subjective Patient seen no change in clinical condition. Awaiting insurance approval prior to transfer to inpatient rehab. Objective Data Objective Data Vital Signs: Vital Signs Temp Pulse Resp BP Pulse Ox O2 Del Method O2 Flow Rate 97.8 F 85 18 145/73 H 94 Room Air 2 03/14/24 07:37 03/14/24 07:37 03/14/24 07:37 03/14/24 07:37 03/14/24 09:05 03/14/24 09:05 03/11/24 02:00 Oxygen Flow Rate (L/min) 2 Oxygen Delivery Method Room Air Weight: 140.1 kg Body Mass Index (BMI) 45.7 Intake & Output: Intake and Output for Last 24 Hours 03/12/24 03/13/24 03/14/24 23:59 23:59 23:59 Intake Total 650 / 1050 1450 / 1850 700 / 700 Output Total 1550 / 2550 2100 / 2650 1350 / 1350 Balance -900 / -1500 -650 / -800 -650 / -650 Lab / Micro Data 03/14/24 06:24 03/14/24 06:24 Labs: Laboratory Results - last 24 hr 03/13/24 11:43: POC Glucose 236 H 03/13/24 17:23: POC Glucose 236 H 03/13/24 21:34: POC Glucose 228 H 03/14/24 06:24: WBC 12.2 H, RBC 4.26 L, Hgb 11.8 L, Hct 37.2 L, MCV 87.3, MCH 27.7, MCHC 31.7 L, RDW Std Deviation 48.5 H, RDW Coeff of Eyal 15.3 H, Plt Count 221, MPV 9.1, Neut % (Auto) Not Reportable, Absolute Neuts (auto) 10.5 H, Absolute Lymphs (auto) 0.85, Total Counted 100, Neutrophils % (Manual) 83 H, Band Neutrophils % 3, Lymphocytes % (Manual) 7 L, Monocytes % (Manual) 3, Eosinophils % (Manual) 3, Metamyelocytes % 1, Diff Path Review May foll, P latelet Estimate ADEQUATE, RBC Morphology N CYTIC, Polychromasia RARE, Sodium 138, Potassium 4.3, Chloride 106, Carbon Dioxide 30.0, Anion Gap 2 L, BUN 10, Creatinine 0.69 L, Estim Creat Clear Calc 117.95, Est GFR (MDRD) Af Amer 145, Est GFR (MDRD) Non-Af 120, BUN/Creatinine Ratio 14.5, Glucose 183 H, Calcium 8.4 L 03/14/24 06:32: POC Glucose 167 H Micro: Microbiology 03/06/24 11:13 Urine Catheter - Jeff Urine Culture - Final Culture exhibits no growth. 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 Culture - Final GNR lactose hardwood faller 03/07/24 01:08 Blood Culture (Wb) - Left Hand Blood Culture - Final Escherichia coli 03/07/24 08:34 Mucosa - Nasopharyngeal Respiratory Panel (PCR) - Final 03/07/24 10:30 Mucosa - Nose Coronavirus COVID-19 PCR - Final 03/06/24 11:13 Urine Catheter - Jeff Legionella Antigen - Final 03/06/24 11:13 Urine Catheter - Jeff Streptococcus pneumoniae Antigen (M - Final Physical Exam Narrative GENERAL: cooperative HEENT: Atraumatic; normocephalic EYES; Anicteric, Normal Conjunctiva NECK; supple, normal thyroid, RESPIRATORY: Diminished to auscultation CARDIOVASCULAR: Regular S1 S2, GI: soft, normoactive bowel sounds, : No Renal angle tenderness; Jeff catheter in place EXTREMITIES: No edema, no clubbing, MUSCULOSKELETAL: no muscle wasting NEURO: Awake; no lateralizing signs. SKIN: No Rash PSYCH; Flat affect Assessment & Plan Assessment/Plan (1) Acute bilateral obstructive uropathy: PLAN: Plan Patient is a 73-year-old gentleman admitted with altered mental status. Diagnosed with acute kidney injury secondary to obstructive uropathy 1. Septic shock ? Secondary to E. coli bacteremia septic shock has since resolved patient grew E. coli. Remains on appropriate antibiotic therapy ? 03/12/2024 septic shock resolved patient remained stable 2. Acute cystitis ? With E. coli managed with ceftriaxone plan is to complete 10-day antibiotic therapy ? 03/12/2024 patient has tolerated antibiotic therapy so far this switch to p.o. cefdinir 3. Acute kidney injury ? Due to combination of obstructive uropathy as well as sepsis. Patient had Jeff catheter placed significant improvement in kidney function since then 4. Dysphagia ? Patient underwent EGD demonstrated Schatzki ring. So far tolerating regular diet 5. Class III obesity with BMI of 46 ? Complicating care weight loss advised 6. Obstructive uropathy ? Patient has a Jeff catheter in place subsequently treated with tamsulosin and finasteride. Plan is for patient to follow-up with urology as outpatient 7. Anemia - Secondary to chronic disorder monitoring H&H and transfuse if patient becomes symptomatic or hemoglobin falls below 7 8. Physical deconditioning - Requested for PT OT eval and social welfare administrator to assist with discharge planning ? 03/13/2024 patient has tolerated physical therapy well so far ? 03/14/2024 plan peer to peer Review of patient's case prior to being discharged to [facility] facility 9.Diabetes mellitus type 2 ? Patient is on metformin held on admission placed on Accu-Cheks ACHS with sliding scale coverage 10. Hypertension - Blood pressure controlled, home medications continued with dose adjustment as needed 11. Dyslipidemia -Patient is on statin therapy, continued at home dose 12. DVT prophylaxis ? SC Lovenox Time spent in the patient's overall evaluation,decision-making process, review of diagnostic data, adjustment of management, discussion with other providers, nursing nursing and ancillary staff involved in patient's care documentation, 35 Minutes Charges/Coding Visit Charges Inpatient E&M: 52511 Subs Hosp L2
--- NOTE | 2024-03-14 10:53 | CASEMGMT ---
Social Work Per physician, Peer to Peer was completed and denial was upheld for [facility]. Insurance states pt is more appropriate for SNF level of care. SW met with pt and dgt Lynette and informed of this. Pt and dgt requesting pt go to [facility] private pay. RU notified and they are able to accept pt. Physician notified and pt is ready for dc today. Pt and dgt informed on dc process and payment process and both are agreeable. Plan: [facility] today TERESA Multani
--- NOTE | 2024-03-14 11:05 | PCM.DC.SUM ---
Providers Date of Admission: 03/06/24 Date of Discharge: 03/14/24 Primary Care Physician: Dr. Sean Valencia MD Consultations 03/07/24 00:41 Consult: Soaking Tank Worker / Pulmonary Medicine Routine Consulting Provider: Intensivists/Pulmonary Med Reason for Consult: severe JOSE C, persistent hypotension EMERGENT Consult: No Notified: Yes Date Notified: 03/07/24 Time Notified: 00:41 Method of Notification: Text 03/08/24 11:26 Consult: Gastroenterology Routine Consulting Provider: [facility] Reason for Consult: Significant GERD, projectile vomitting after sips of water per S.T. EMERGENT Consult: No Notified: Yes Date Notified: 03/08/24 Time Notified: 11:26 Method of Notification: Text Reason For Visit: JOSE C Diagnosis Discharge Diagnosis (1) Acute bilateral obstructive uropathy: Status: Acute Code(s): N13.9 - Obstructive and reflux uropathy, unspecified Plan Patient is a 73-year-old gentleman admitted with altered mental status. Diagnosed with acute kidney injury secondary to obstructive uropathy 1. Septic shock ? Secondary to E. coli bacteremia septic shock has since resolved patient grew E. coli. Remains on appropriate antibiotic therapy ? 03/12/2024 septic shock resolved patient remained stable 2. Acute cystitis ? With E. coli managed with ceftriaxone plan is to complete 10-day antibiotic therapy ? 03/12/2024 patient has tolerated antibiotic therapy so far this switch to p.o. cefdinir 3. Acute kidney injury ? Due to combination of obstructive uropathy as well as sepsis. Patient had Jeff catheter placed significant improvement in kidney function since then 4. Dysphagia ? Patient underwent EGD demonstrated Schatzki ring. So far tolerating regular diet 5. Class III obesity with BMI of 46 ? Complicating care weight loss advised 6. Obstructive uropathy ? Patient has a Jeff catheter in place subsequently treated with tamsulosin and finasteride. Plan is for patient to follow-up with urology as outpatient 7. Anemia - Secondary to chronic disorder monitoring H&H and transfuse if patient becomes symptomatic or hemoglobin falls below 7 8. Physical deconditioning - Requested for PT OT eval and social service assistant to assist with discharge planning ? 03/13/2024 patient has tolerated physical therapy well so far ? 03/14/2024 plan peer to peer Review of patient's case prior to being discharged to inpatient rehab unit. Insurance denied patient transferred to inpatient rehab unit citing lack of medical complexity 9.Diabetes mellitus type 2 ? Patient is on metformin held on admission placed on Accu-Cheks ACHS with sliding scale coverage 10. Hypertension - Blood pressure controlled, home medications continued with dose adjustment as needed 11. Dyslipidemia -Patient is on statin therapy, continued at home dose 12. DVT prophylaxis ? SC Lovenox Time spent in the patient's overall evaluation,decision-making process, review of diagnostic data, adjustment of management, discussion with other providers, nursing nursing and ancillary staff involved in patient's care documentation, 35 Minutes Medications at Discharge Home Medications amlodipine 10 mg tablet (Norvasc) 10 mg PO DAILY BLOOD PRESSURE 03/06/24 lisinopril See Rx Instructions PO DAILY BLOOD PRESSURE 03/06/24 metformin 1 tab PO BID BLOOD SUGAR 03/06/24 omeprazole 40 mg capsule,delayed release 40 mg PO DAILY GERD 03/06/24 simvastatin See Rx Instructions PO DAILY LOWERS CHOLESTEROL 03/06/24 acetaminophen 325 mg tablet 650 mg (2 x 325 mg) PO Q6H PRN PRN Pain 1-10 Or Fever >100.7 #0 tabs 03/14/24 cefdinir 300 mg capsule 300 mg PO Q12 #4 caps 03/14/24 finasteride 5 mg tablet 5 mg PO DAILY #0 tabs 03/14/24 glucagon 1 mg solution for injection (Glucagon Emergency Kit) 1 mg IM X1 PRN Hypoglycemia #0 ea 03/14/24 insulin lispro 100 unit/mL subcutaneous pen (Humalog KwikPen (U-100) Insulin) See Protocol subcut TIDAC #0 mL 03/14/24 ipratropium 0.5 mg-albuterol 3 mg (2.5 mg base)/3 mL nebulization soln 3 ml inhalation Q4H PRN PRN Shortness Of Breath #0 mL 03/14/24 oxycodone 5 mg tablet 2.5 - 5 mg (0.5 - 1 x 5 mg) PO Q4H PRN PRN Pain Score 4-10 #0 tabs 03/14/24 tamsulosin 0.4 mg capsule 0.4 mg PO DAILY@1730 #0 caps 03/14/24 Physical Exam Narrative GENERAL: cooperative HEENT: Atraumatic; normocephalic EYES; Anicteric, Normal Conjunctiva NECK; supple, normal thyroid, RESPIRATORY: Diminished to auscultation CARDIOVASCULAR: Regular S1 S2, GI: soft, normoactive bowel sounds, : No Renal angle tenderness; Jeff catheter in place EXTREMITIES: No edema, no clubbing, MUSCULOSKELETAL: no muscle wasting NEURO: Awake; no lateralizing signs. SKIN: No Rash PSYCH; Flat affect Weight / BMI Weight Weight: 140.1 kg Body Mass Index (BMI) 45.7 ABG / Lab / Microbiology Data 03/14/24 06:24 03/14/24 06:24 Laboratory: Laboratory Results - last 24 hr 03/13/24 11:43: POC Glucose 236 H 03/13/24 17:23: POC Glucose 236 H 03/13/24 21:34: POC Glucose 228 H 03/14/24 06:24: WBC 12.2 H, RBC 4.26 L, Hgb 11.8 L, Hct 37.2 L, MCV 87.3, MCH 27.7, MCHC 31.7 L, RDW Std Deviation 48.5 H, RDW Coeff of Eyal 15.3 H, Plt Count 221, MPV 9.1, Neut % (Auto) Not Reportable, Absolute Neuts (auto) 10.5 H, Absolute Lymphs (auto) 0.85, Total Counted 100, Neutrophils % (Manual) 83 H, Band Neutrophils % 3, Lymphocytes % (Manual) 7 L, Monocytes % (Manual) 3, Eosinophils % (Manual) 3, Metamyelocytes % 1, Diff Path Review May foll, Platelet Estimate ADEQUATE, RBC Morphology N CYTIC, Polychromasia RARE, Sodium 138, Potassium 4.3, Chloride 106, Carbon Dioxide 30.0, Anion Gap 2 L, BUN 10, Creatinine 0.69 L, Estim Creat Clear Calc 117.95, Est GFR (MDRD) Af Amer 145, Est GFR (MDRD) Non-Af 120, BUN/Creatinine Ratio 14.5, Glucose 183 H, Calcium 8.4 L 03/14/24 06:32: POC Glucose 167 H Microbiology: Microbiology 03/06/24 11:13 Urine Catheter - Jeff Urine Culture - Final Culture exhibits no growth. 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 Culture - Final GNR lactose exchange trouble shooter 03/07/24 01:08 Blood Culture (Wb) - Left Hand Blood Culture - Final Escherichia coli 03/07/24 08:34 Mucosa - Nasopharyngeal Respiratory Panel (PCR) - Final 03/07/24 10:30 Mucosa - Nose Coronavirus COVID-19 PCR - Final 03/06/24 11:13 Urine Catheter - Jeff Legionella Antigen - Final 03/06/24 11:13 Urine Catheter - Jeff Streptococcus pneumoniae Antigen (M - Final D/C Instructions Discharge Diet: 1800 Calorie Control Diet Discharge Activity: Return to Normal Activity Call your doctor if you observe: Fever of 101 or Higher, Shortness of breath, Fainting spells and Chest pain Meaningful Use Info Meaningful Use Meaningful Use Diagnoses (Choose all that apply): None applicable Ischemic Stroke Statin Dosing Therapy Reference: STATIN DOSE THERAPY REFERENCE: * Patients > 75 years receive moderate or high dose statin therapy. * Patients 75 years or YOUNGER should receive HIGH intensity statin dose unless contraindicated. You will be required to document reason for non-treatment if statin daily dose does not meet guidelines. HIGH DOSE STATIN THERAPY DAILY Atorvastatin > than or = to 40 mg Rosuvastatin > than or = to 20 mg Amlodipine + Atorvastatin > than or = to 2.5/40 mg Ezetimibe + Simvastatin 10/80 mg Simvastatin 80mg Discharge Plan Admission Admit Date/Time: 03/06/24 14:10 Attending Provider: Troy Watson Primary Care Provider: Sean Valencia Consulting Providers: Aries Ryan; Ghazal Eason Instructions Additional Instructions / Restrictions: 1. Leave Jeff catheter in until you follow-up as an outpatient with Dr. Alex Discharge Orders/Prescriptions Prescriptions: New acetaminophen 325 mg Tablet 650 mg PO Q6H PRN PRN (Reason: Pain 1-10 Or Fever >100.7) Qty: 0 0RF ipratropium-albuterol 0.5 mg-3 mg(2.5 mg base)/3 mL Solution For Nebulization 3 ml inhalation Q4H PRN PRN (Reason: Shortness Of Breath) Qty: 0 0RF tamsulosin 0.4 mg Capsule 0.4 mg PO DAILY@1730 Qty: 0 0RF Glucagon Emergency Kit (human) 1 mg Recon Soln 1 mg IM X1 PRN (Reason: Hypoglycemia) Qty: 0 0RF cefdinir 300 mg Capsule 300 mg PO Q12 Qty: 4 0RF finasteride 5 mg Tablet 5 mg PO DAILY Qty: 0 0RF oxycodone 5 mg Tablet 2.5 - 5 mg PO Q4H PRN PRN (Reason: Pain Score 4-10) Qty: 0 0RF insulin lispro [Humalog KwikPen Insulin] 100 unit/mL Insulin Pen See Protocol subcut TIDAC Qty: 0 0RF Protocol: 3. Sliding Scale Insulin Med Dosing Condition: 150-189 mg/dl = 1 unit Condition: 190-229 mg/dl = 2 units Condition: 230-269 mg/dl = 3 units Condition: 270-309 mg/dl = 4 units Condition: 310-349 mg/dl = 5 units Condition: 350-399 mg/dl = 6 units Condition: 400-449 mg/dl = 7 units Condition: Greater than 449 call physician Protocol Text: - Use for Total Daily Dose of Insulin 37-55 units - Obsese, infected, or steroid patients MEDIUM DOSING ALGORITHIM Continued simvastatin See Rx Instructions PO DAILY Rx Instructions: 40 MG DAILY AT HS orally daily; metformin 1 tab PO BID Patient Comments: PT TAKING 1000 MG 2 TIMES DAILY WITH MEALS lisinopril See Rx Instructions PO DAILY Patient Comments: STARTED ON 02/15 AND WAS TO TAKE FOR 10 DAYS ACCORDING TO THE LABEL ON THE BOTTLE- PT UNAWARE AND UNABLE TO VERIFY Rx Instructions: 40 MG orally daily; amlodipine [Norvasc] 10 mg tablet 10 mg PO DAILY omeprazole 40 mg capsule,delayed release(DR/EC) 40 mg PO DAILY Referrals / Follow Up: Jim Alex MD [Med Staff - Active Staff] - Within 1 Week Chris Brar DO [Med Staff - Active Staff] - Within 1 Month Sean Valencia MD [Primary Care Provider] - Within 1 Week Tere Benavidez NP, CERTIFIED HEALTH EDUCATION SPECIALIST-C [Med Staff - Adv Practice Prof] - See Referral Note (Call to set up an appointment to be evaluated for obstructive sleep apnea at first availability) Disposition Disposition (needs filled in before D/C Order can be placed): Inpatient Rehab Unit/Facility Charges/Coding Visit Charges Inpatient E&M: 88339 Disch Hosp >30min
--- NOTE | 2024-03-14 11:18 | PHA.DC.MR.R ---
Pharmacy [place] Med Reconciliation Pharmacy Service has performed discharge medication reconciliation for this patient upon transfer to Inpatient Rehab Unit The patient's discharge medication list was reviewed for discrepancies and discrepancies were resolved. Medications at Discharge Home Medications amlodipine 10 mg tablet (Norvasc) 10 mg PO DAILY BLOOD PRESSURE 03/06/24 lisinopril See Rx Instructions PO DAILY BLOOD PRESSURE 03/06/24 metformin 1 tab PO BID BLOOD SUGAR 03/06/24 omeprazole 40 mg capsule,delayed release 40 mg PO DAILY GERD 03/06/24 simvastatin See Rx Instructions PO DAILY LOWERS CHOLESTEROL 03/06/24 acetaminophen 325 mg tablet 650 mg (2 x 325 mg) PO Q6H PRN PRN Pain 1-10 Or Fever >100.7 #0 tabs 03/14/24 cefdinir 300 mg capsule 300 mg PO Q12 #4 caps 03/14/24 finasteride 5 mg tablet 5 mg PO DAILY #0 tabs 03/14/24 glucagon 1 mg solution for injection (Glucagon Emergency Kit) 1 mg IM X1 PRN Hypoglycemia #0 ea 03/14/24 insulin lispro 100 unit/mL subcutaneous pen (Humalog KwikPen (U-100) Insulin) See Protocol subcut TIDAC #0 mL 03/14/24 ipratropium 0.5 mg-albuterol 3 mg (2.5 mg base)/3 mL nebulization soln 3 ml inhalation Q4H PRN PRN Shortness Of Breath #0 mL 03/14/24 oxycodone 5 mg tablet 2.5 - 5 mg (0.5 - 1 x 5 mg) PO Q4H PRN PRN Pain Score 4-10 #0 tabs 03/14/24 tamsulosin 0.4 mg capsule 0.4 mg PO DAILY@1730 #0 caps 03/14/24
--- NOTE | 2024-03-14 11:55 | NURSING ---
report called to [facility]
[2024-03-14 12:02] LABS: Bedside Glucose 206 mg/dL (74-106)
[2024-03-14 13:24] LABS: Pathologist Review Reviewed
[2024-03-14 13:28] LABS: White Blood Count 12.2 K/mm3 (4.4-11.0)
== END 2024-03-14 12:00 | DRG 871 ==
LOC: ED 14:24 → MS3 15:26 → ICU 03-07 01:52 → MS3 03-09 13:37
PROVIDERS: Hospitalist; Internal Medicine; Internal Medicine Gastroenterology; Emergency Provider Emergency Medicine; PCP Family Medicine; Visit Provider Internal Medicine
PROC: 0DJ08ZZ Inspection of Upper Intestinal Tract, Via Natural or Artificial Opening Endoscopic (ICD-10-PCS; CPT 43235; principal; 2024-03-09 08:00)
DX: A41.51 Sepsis due to Escherichia coli [E. coli] (principal); G92.8 Other toxic encephalopathy; R65.21 Severe sepsis with septic shock; N17.9 Acute kidney failure, unspecified; N13.8 Other obstructive and reflux uropathy; Z68.42 Body mass index [BMI] 45.0-49.9, adult; N13.6 Pyonephrosis; D63.8 Anemia in other chronic diseases classified elsewhere; K22.2 Esophageal obstruction; E11.65 Type 2 diabetes mellitus with hyperglycemia; E66.01 Morbid (severe) obesity due to excess calories; I10 Essential (primary) hypertension; I95.89 Other hypotension; G47.33 Obstructive sleep apnea (adult) (pediatric); E78.00 Pure hypercholesterolemia, unspecified; K20.0 Eosinophilic esophagitis; K44.9 Diaphragmatic hernia without obstruction or gangrene; K22.4 Dyskinesia of esophagus; M25.551 Pain in right hip; W01.0XXA Fall on same level from slipping, tripping and stumbling without subsequent striking against object, initial encounter; G89.11 Acute pain due to trauma; N40.1 Benign prostatic hyperplasia with lower urinary tract symptoms; R33.8 Other retention of urine; R53.81 Other malaise; R09.02 Hypoxemia; Z91.199 Patient's noncompliance with other medical treatment and regimen due to unspecified reason; Z79.84 Long term (current) use of oral hypoglycemic drugs; Z79.899 Other long term (current) drug therapy
CPT/HCPCS: 36415; 36569; 51702; 70450; 71045; 73502; 74018; 74176; 80048; 80053; 80076; 80202; 81001; 82570; 82728; 82962; 83036; 83540; 83550; 83605; 83690; 83735; 83880; 84100; 84300; 84443; 84484; 85018; 85025; 85027; 87040; 87077; 87086; 87186; 87449; 87633; 87635; 87641; 88305; 88313; 88342; 92526; 92610; 93005; 97110; 97116; 97162; 97166; 97530; 97535; 99285; J7030; J7040; J7050; J7120; A4216; C1769; J0696; J2405

== ENCOUNTER 2024-03-14 12:19 | Inpatient (IN) | payer SELFPAY ==
[2024-03-14 12:25] VITALS: BP 133/79; PULSE 79; RESP 16; TEMP 36.1; O2SAT 94
[2024-03-14 13:24] VITALS: BMI 21.7
--- NOTE | 2024-03-14 15:48 | HP.PCM_ITS ---
HPI - General General Date of Admission: 03/14/24 Date of Service: 03/14/24 Chief Complaint: Physical debility due to generalized weakness/deconditioning HPI Narrative RISHI STRATTON, is a 73-year-old M with a past medical history of hyperlipidemia, hypertension, BPH(not medicated), colon polyp, morbid obesity, GERD, osteoarthritis, depression (winston never been on an antidepressant or had psychotherapy), BPH and glucose intolerance who presented to the emergency department at [facility] on 03/06/2024 after a fall at home. He had been having diarrhea and weakness and he slipped and fell in his feces. He fell forward and struck his face but denied any loss of consciousness. Diarrhea had resolved prior to presenting to the ED an he c/o inability to urinate with persistent generalized weakness. He felt his abdomen felt firmer than normal. His dtr, who stayed with him the night of the , told the ER doc that his pulse ox was dropping into the 70's while he was sleeping. Lab in the emergency department showed an elevated white blood cell count of 13, a low sodium at 132, elevated potassium at 5.1 and a markedly elevated creatinine at 9.31 with a BUN of 146. LFTs were mildly elevated. A bedside ultrasound revealed a markedly distended bladder up to the level of the umbilicus. Jeff catheter was inserted and he had 25-50 red cells and only 0-5 WBCs. It was nitrite negative. Chest x-ray showed no acute abnormalities. CT head showed no acute abnormalities. Abdomen and pelvis CT showed distended renal collecting system bilaterally more likely than not secondary to chronic bladder outlet obstruction. Dehydration from severe diarrhea also likely contributed to acute renal failure. There was prostatic enlargement and evidence of diverticulosis. There was fat stranding along the mesentery of the left colon without focal wall thickening.. He was admitted to the hospitalist service with a diagnosis of acute kidney injury most likely secondary to bladder outlet obstruction. He was started on tamsulosin. Late on the night of 03/06/2024 he developed a low-grade fever, increased confusion and low blood pressure. The night hospitalist evaluated him and felt he may have an intra-abdominal infection. Lactic acid was normal. He was started on vancomycin and Zosyn and transferred to the ICU. Blood cultures were ordered and were positive for pansensitive E. coli. Vanco and Zosyn were discontinued and he was started on Rocephin. Urine culture had no growth so I presume the E. Coli was due to colitis. He eventually required pressors to maintain the BP. He was seen in consultation by Dr. Brra from GI for c/o dysphagia (both liquids and solids) and an EGD was recommended. The EGD was performed on 03/09/2024 and showed a Schatzki's ring which was dilated. There were mucosal changes suggestive of eosinophilic fasciitis and biopsies were obtained. He had a small hiatal hernia. The first portion of the duodenum was normal. He was placed on antacids and his swallowing improved. He was seen by PT/OT in the hospital and a recommendation for acute rehab at [place] was made. He had been living by himself prior to admission to the hospital and was independent with ADL's. He was transferred to the acute in rehab unit at [facility] on 03/14/24 for 3 hours of therapy daily to restore function/independence at or near his level prior to admission to the hospital. The esophageal biopsy was negative for dysplasia. The GE junction mucosa showed chronic inflammation and focal goblet cell metaplasia consistent with Santacruz's esophagus. All lab from his acute hospital stay was personally reviewed. White blood cell count is elevated at 12.2 with 83% neutrophils Hemoglobin is stable at 11.8. MCV and MCH are within normal limits. The RDW is elevated at 48.5. Platelets are within normal limits. Sodium is 138 and the potassium is 4.3. The BUN is 10 with a creatinine of 0.69. Fasting blood sugar was elevated at 183. Hemoglobin A1c at admission to the hospital was elevated at 6.8 consistent with type 2 diabetes mellitus. Serum iron and percent iron saturation are both decreased. Ferritin was 741. Calcium corrected for hypoalbuminemia is upper limits of normal. TSH was normal. Bahman tells me that he was on Glucophage 2 tablets twice daily prior to admission to the hospital recently. He was also taking Flomax at home for hx of some retention. To his knowledge he has never had an elevated PSA. No FH of prostate CA or colon CA. [facility] Medical History (Updated 03/18/24 @ 14:[address] Maki Burt DO) Barretts esophagus BPH (benign prostatic hyperplasia) Depression Diabetes mellitus, type 2 Diverticulosis History of colon polyps Hypercholesterolemia Hypertension Morbid obesity Osteoarthritis Prostatic enlargement Tobacco dependence in remission Venous insufficiency Home Medications amlodipine 10 mg tablet (Norvasc) 10 mg PO DAILY BLOOD PRESSURE 03/06/24 [History Last Taken 03/14/24] lisinopril See Rx Instructions PO DAILY BLOOD PRESSURE 03/06/24 [History Last Taken Unknown] metformin 1,000 mg PO BID BLOOD SUGAR 03/06/24 [History Last Taken Unknown] omeprazole 40 mg capsule,delayed release 40 mg PO DAILY GERD 03/06/24 [History Last Taken 03/14/24] simvastatin See Rx Instructions PO DAILY LOWERS CHOLESTEROL 03/06/24 [History Last Taken 03/13/24] acetaminophen 325 mg tablet 650 mg (2 x 325 mg) PO Q6H PRN PRN Pain 1-10 Or Fever >100.7 #0 tabs 03/14/24 [Rx Last Taken Unknown] cefdinir 300 mg capsule 300 mg PO Q12 ATB #4 caps 03/14/24 [Rx Last Taken 03/14/24] finasteride 5 mg tablet 5 mg PO DAILY retention #0 tabs 03/14/24 [Rx Last Taken 03/14/24] ipratropium 0.5 mg-albuterol 3 mg (2.5 mg base)/3 mL nebulization soln 3 ml inhalation Q4H PRN PRN Shortness Of Breath #0 mL 03/14/24 [Rx Last Taken Unknown] oxycodone 5 mg tablet 2.5 - 5 mg (0.5 - 1 x 5 mg) PO Q4H PRN PRN Pain Score 4-10 #0 tabs 03/14/24 [Rx Last Taken Unknown] tamsulosin 0.4 mg capsule 0.4 mg PO DAILY@1730 retention #0 caps 03/14/24 [Rx Last Taken 03/13/24] Allergy/AdvReac Type Severity Reaction Status Date / Time No Known Allergies Allergy Verified 03/06/24 09:44 Family History (Updated 03/15/24 @ 11:[address] Maki Burt DO) Brother , due to a boating accident No problems noted. Brother No problems noted. Other Alcoholism Surgical History (Updated 03/15/24 @ 11:[address] Maki Burt DO) History of colonoscopy History of esophagogastroduodenoscopy (EGD) Social History (Updated 03/15/24 @ 12:[address] 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 Smoking Status: Former smoker Tobacco: How many years used: 10 how long ago did patient quit smoking: He quit smoking in 1987 alcohol intake: current alcohol intake frequency: holidays/special occasions only substance use type: does not use ROS Constitutional Constitutional: Reports fatigue and weakness; Denies anorexia, change in weight, chills, fever(s) or night sweats Eyes Eyes: Denies blurry vision, change in vision, eye pain or loss of vision ENT HEENT: Reports dysphagia; Denies abnormal hearing, headache(s), hearing loss, nasal congestion or sore throat Cardiovascular Cardiovascular: Reports edema; Denies chest pain, dyspnea on exertion, lightheadedness, orthopnea, palpitations, paroxysmal nocturnal dyspnea or syncope Respiratory/Chest Respiratory/Chest: Reports cough; Denies dyspnea, shortness of breath at rest, shortness of breath with exertion or wheezing Gastrointestinal Gastrointestinal: Reports other Details: Had severe diarrhea at admission to the hospital but, this has resolved. ; Denies abdominal pain, constipation, diarrhea, dyspepsia, hematemesis, hematochezia, nausea or vomiting Genitourinary Genitourinary: Reports other Details: Jeff catheter present. Placed for BL hydronephrosis due to bladder outlet obstruction. ; Denies dysuria, hematuria, nocturia, urinary frequency, urinary hesitancy, urinary incontinence or urinary urgency Musculoskeletal Musculoskeletal: Reports joint pain, joint stiffness and other Details: Difficulty his steps ; Denies back pain, joint swelling, muscle cramps, neck pain or radiating pain into limb Integumentary Integumentary: Denies change in pigmentation, jaundice, lesions, non-healing lesions, photosensitivity, pruritus or rash Neurologic Neurologic: Reports other Details: Generalized weakness ; Denies confusion, disequilibrium, dizziness, focal weakness, frequent falls, headache(s), paresthesias, seizures or tremor(s) Psychiatric Psychiatric: Denies anxiety, depression, homicidal ideation or suicidal ideation Endocrine Endocrinology: Denies change in body appearance, deepening of the voice, polydipsia or polyuria Hematologic/Lymphatic Hematologic/Lymphatic: Denies easy bleeding, easy bruising or lymphadenopathy Allergic/Immunologic Allergic/Immunologic: Denies rhinitis, eczemia or asthma Vital Signs Vital Signs Vital Signs: 03/14/24 12:25 Temperature 97.0 F L Temperature Source Temporal Pulse Rate 79 Respiratory Rate 16 Blood Pressure 133/79 H Blood Pressure Mean 97 Blood Pressure Source Monitor Blood Pressure Position Semi-Fowlers Blood Pressure Location Right Forearm Pulse Ox 94 Oxygen Delivery Method Room Air Weight Weight: 147 lb 7.828 oz Body Mass Index (BMI) 21.7 Physical Exam Const alert, oriented x3 and no apparent distress Constitutional Narrative: appropriate Often has his eyes closed with talking to me and not making eye contact. Became very tearful when I asked him about his weight and if it was stable. Th is caused him to think about his who passed suddenly 10 years ago. Tells me that he gained a significant amount of weight in the first few years after her passing. General Appearance: cooperative, comfortable, well kempt and well developed; Negative for ill appearing Nutritional Appearance: morbidly obese HEENT HEENT Narrative: Teeth are in good repair. Mucous membranes are dry. No evidence of thrush. Head and Scalp: normocephalic and atraumatic Eyes PERRL, EOMs intact bilaterally, conjunctivae normal and no scleral icterus General Eye: normal appearance of both eyes Neck no lymphadenopathy, supple, no JVD, No nodes and no carotid bruits Chest Chest: symmetrical chest wall rise Resp normal respiratory effort, normal air movement, no use of accessory muscles and clear to auscultation bilaterally Resp Narrative: Not tachypneic and no conversational dyspnea. Excellent air exchange. Effort and Inspection: able to speak in complete sentences Cardio regular rate, regular rhythm, S1 normal heart sound, S2 normal heart sound, no murmurs, no rub and no gallops Cardio Narrative: No ectopy GI normal to inspection, nondistended, normoactive bowel sounds, soft to palpation and non-tender GI Narrative: No guarding with palpation. no CVA tenderness Bladder / Kidney Exam: catheter in place Extremity no calf tenderness Extremity Narrative: Peripheral edema in the LE's. MICHELLE wraps in place. Skin no wounds, no jaundice and no petechiae Skin Narrative: No rashes, no skin breakdown. General Skin Exam: no breakdown Neuro oriented x3, CN's II-XII intact bilaterally and no focal motor deficits Motor Exam: strength 5/5 throughout Psych affect normal Psych Narrative: Tearful at times. Able to stay on topic and focus. No flight of ideas. Appears depressed. Speech is slow and deliberate. Most of the time when he was talking with me he had his eyes closed. Mentioned that sometimes it is hard for him to get motivated. He used to go to [facility] and exercise but, he has not done this for a few years now. Has never been on an antidepressant or seen a psychotherapist. Very tearful when talking about his . Thinking about selling his house and downsizing. Yard work is more than he wants to do at this time in his life. Appearance: grossly normal, appropriate and well kempt Attitude: calm Thought Process: No disorganized, No confused, No loose associations and No racing thoughts Thought Content: normal thought content Attention / Concentration: attention grossly intact Memory / Cognition: memory grossly intact Insight: limited Assessment & Plan Assessment/Plan (1) Debility: (2) Fall: QUALIFIERS: Encounter type: subsequent encounter Qualified Code(s): W19.XXXD - Unspecified fall, subsequent encounter (3) Urinary retention: (4) Acute bilateral obstructive uropathy: (5) Acute renal failure: (6) Septic shock: PLAN: Suspect due to colitis with E. Coli bacteremia (7) Hypoxia: (8) Presence of indwelling Jeff catheter: (9) Dysphagia: QUALIFIERS: Dysphagia type: unspecified Qualified Code(s): R13.10 - Dysphagia, unspecified (10) Depression: QUALIFIERS: Depression Type: persistent depressive disorder Qualified Code(s): F34.1 - Dysthymic disorder (11) Diabetes mellitus, type 2: QUALIFIERS: Diabetes mellitus senior living insulin use: without exterminator helper use (12) Barretts esophagus: QUALIFIERS: Santacruz's esophagus type: without dysplasia Qualified Code(s): K22.70 - Santacruz's esophagus without dysplasia (13) BPH (benign prostatic hyperplasia): QUALIFIERS: Lower urinary tract symptom presence: symptoms present Lower urinary tract symptom detail: urinary retention Qualified Code(s): N40.1 - Benign prostatic hyperplasia with lower urinary tract symptoms; R33.8 - Other retention of urine PLAN: Plan PLAN PT for gait stability OT for ADL's ST for evaluation Analgesics as needed Bowel protocol Fall precautions Assess for Anxiety/Depression GI prophylaxis -Protonix DVT prophylaxis with enoxaparin Follow up with PCP, urology, pulmonary medicine, gastroenterology and psychotherapy following DC from IP Rehab AM lab including CMP, CBC, Mag and Phos add Amaryl for better Blood sugar control He started with reactive depression after his 10 years ago. He has never been on an antidepressant or had psychotherapy. We discussed starting an antidepressant and he is agreeable. Together we decided on Wellbutrin to help with daytime somnolence, weight loss and depression. Will start Wellbutrin XL 150 mg daily in the AM. Recommended psychotherapy post DC from rehab. Overnight trending pulse ox. He desaturates at night. I suspect he may have JULIO. Would recommend ECHO in the future. Has pitting edema of both LE's.......pulmon dede HTN? Diastolic CHF? venous insufficiency? JOLYNN hose or MICHELLE wraps on the LE's any time he is out of bed. Diabetic education while on rehab Stressed the importance of regular exercise and weight loss in controlling DM. Charges/Coding Visit Charges Inpatient E&M: 54476 Init Hosp L2
[2024-03-14] MEDS: Tamsulosin HCl 0.4 MG Capsule PO (16:40)
[2024-03-14] MEDS: metFORMIN HCl 1,000 MG Tablet 1000 MG PO (16:40)
[2024-03-14 16:59] LABS: Bedside Glucose 281 mg/dL (74-106)
[2024-03-14] MEDS: Insulin Lispro 100 UNIT/ML INSULN.PEN SC ×2 (17:01→21:02)
[2024-03-14] MEDS: Atorvastatin Calcium 20 MG Tablet PO (20:58)
[2024-03-14] MEDS: Cefdinir 300 MG Capsule PO (20:58)
[2024-03-14 21:00] VITALS: O2SAT 93
[2024-03-14 21:54] LABS: Bedside Glucose 248 mg/dL (74-106)
[2024-03-14 22:00] VITALS: BP 150/77; PULSE 74; RESP 18; TEMP 36.9; O2SAT 93
[2024-03-15] MEDS: Enoxaparin 40 MG/0.4 ML Syringe SC (05:13)
[2024-03-15] MEDS: Nystatin Powder 15gm Bottle 1 APPLIC TOPICAL ×2 (05:13→20:40)
[2024-03-15 06:29] LABS: Bedside Glucose 192 mg/dL (74-106)
[2024-03-15 07:44] VITALS: BP 130/45; PULSE 50; RESP 16; TEMP 36.6; O2SAT 94
[2024-03-15] MEDS: Senna/Docusate Sodium 1 Tablet 2 TABLET PO (08:26)
[2024-03-15] MEDS: Insulin Lispro 100 UNIT/ML INSULN.PEN SC ×3 (08:27→16:10)
[2024-03-15] MEDS: metFORMIN HCl 1,000 MG Tablet 1000 MG PO ×2 (08:27→16:50)
[2024-03-15] MEDS: amLODIPine 10 MG Tablet PO (08:27)
[2024-03-15] MEDS: Pantoprazole Sodium 40 MG Tablet PO (08:27)
[2024-03-15] MEDS: Lisinopril 40 MG Tablet PO (08:27)
[2024-03-15 09:07] VITALS: O2SAT 96
[2024-03-15] MEDS: Finasteride 5 MG Tablet PO (09:08)
[2024-03-15 09:40] VITALS: O2SAT 93
--- NOTE | 2024-03-15 10:29 | PN_ITS ---
Subjective Subjective Afebrile VSS -blood pressure since arrival on rehab is ranged from 130/45 to 150/77. The heart rate has ranged from 50-79. Maintaining appropriate oxygen saturation on RA-93 to 96% on room air. Oral intake - FOOD good FLUIDS poor The blood sugar record was reviewed. Blood sugars are not adequately controlle d. He is currently on Glucophage 1000 mg twice daily and sliding insulin scale. Discussed with nursing - no problems that need addressed Reviewed the THERAPY notes Medication list reviewed. Lab this hospital admission is consistent with diabetes mellitus type 2. In the past he had been diagnosed with prediabetes but the hemoglobin A1c at this admission is 6.8. He was started on Glucophage while on the acute side of the hospital. Bahman denies lightheadedness, vertigo, CP, SOB at rest, SOB with exertion, cough, nausea, vomiting, abd pain, diarrhea, constipation, dysuria, calf pain. He has swelling of the LE's. He tells me that he slept well last nighy. Objective Data Objective Data Vital Signs: Vital Signs Temp Pulse Resp BP Pulse Ox O2 Del Method 97.9 F 50 L 16 130/45 H 93 Room Air 03/15/24 07:44 03/15/24 07:44 03/15/24 07:44 03/15/24 07:44 03/15/24 09:40 03/15/24 09:40 Oxygen Delivery Method Room Air Weight: 147 lb 7.828 oz Body Mass Index (BMI) 21.7 Intake & Output: Intake and Output for Last 24 Hours 03/13/24 03/14/24 03/15/24 23:59 23:59 23:59 Intake Total 450 / 450 360 / 360 Output Total 375 / 375 500 / 500 Balance 75 / 75 -140 / -140 Lab / Micro Data Labs: Laboratory Results - last 24 hr 03/14/24 16:40: POC Glucose 281 H 03/14/24 21:02: POC Glucose 248 H 03/15/24 06:11: POC Glucose 192 H Physical Exam Const alert, oriented x3 and no apparent distress Constitutional Narrative: appropriate Often has his eyes closed with talking to me and not making eye contact. Became very tearful when I asked him about his weight and if it was stable. This caused him to think about his who passed suddenly 10 years ago. Tells me that he gained a significant amount of weight in the first few years after her passing. General Appearance: cooperative, comfortable, well kempt and well developed; Negative for ill appearing Nutritional Appearance: morbidly obese Eyes PERRL, EOMs intact bilaterally, conjunctivae normal and no scleral icterus General Eye: normal appearance of both eyes Neck no lymphadenopathy, supple, no JVD, No nodes and no carotid bruits Chest Chest: symmetrical chest wall rise Resp normal respiratory effort, normal air movement and clear to auscultation bilaterally Resp Narrative: Not tachypneic and no conversational dyspnea. Excellent air exchange. Effort and Inspection: able to speak in complete sentences Cardio regular rate, regular rhythm, S1 normal heart sound, S2 normal heart sound, no murmurs, no rub and no gallops Cardio Narrative: No ectopy GI normal to inspection, nondistended, normoactive bowel sounds, soft to palpation and non-tender GI Narrative: No guarding with palpation. no CVA tenderness Bladder / Kidney Exam: catheter in place Extremity no calf tenderness Extremity Narrative: Peripheral edema in the LE's. MICHELLE wraps in place. Skin no wounds, no jaundice and no petechiae Skin Narrative: No rashes, no skin breakdown. General Skin Exam: no breakdown Neuro oriented x3, CN's II-XII intact bilaterally and no focal motor deficits Motor Exam: strength 5/5 throughout Psych affect normal Psych Narrative: Tearful at times. Able to stay on topic and focus. No flight of ideas. Appears depressed. Speech is slow and deliberate. Most of the time when he was talking with me he had his eyes closed. Mentioned that sometimes it is hard for him to get motivated. He used to go to [facility] and exercise but, he has not done this for a few years now. Has never been on an antidepressant or seen a psychotherapist. Very tearful when talking about his . Thinking about selling his house and downsizing. Yard work is more than he wants to do at this time in his life. Appearance: grossly normal, appropriate and well kempt Attitude: calm Thought Process: No disorganized, No confused, No loose associations and No racing thoughts Thought Content: normal thought content Attention / Concentration: attention grossly intact Memory / Cognition: memory grossly intact Insight: limited Assessment & Plan Assessment/Plan (1) Debility: (2) Urinary retention: (3) Acute bilateral obstructive uropathy: (4) Acute renal failure: QUALIFIERS: Acute renal failure type: unspecified Qualified Cod e(s): N17.9 - Acute kidney failure, unspecified (5) Presence of indwelling Jeff catheter: (6) Depression: QUALIFIERS: Depression Type: persistent depressive disorder Qualified Code(s): F34.1 - Dysthymic disorder (7) Diabetes mellitus, type 2: QUALIFIERS: Diabetes mellitus custodial insulin use: without custodial use (8) BPH (benign prostatic hyperplasia): QUALIFIERS: Lower urinary tract symptom presence: symptoms present Lower urinary tract symptom detail: urinary retention Qualified Code(s): N40.1 - Benign prostatic hyperplasia with lower urinary tract symptoms; R33.8 - Other retention of urine PLAN: Plan 1. continue therapy 2. Overnight trending pulse ox. 3. Plan voiding trial on Monday. 4. Started on Wellbutrin XL 150 mg p.o. daily for depression Charges/Coding Visit Charges Inpatient E&M: 31819 [facility] Hosp L1
--- NOTE | 2024-03-15 10:29 | PCM.RU.PYE ---
Admission Information Primary Diagnosis:: Physical debility secondary to generalized weakness related to recent septic shock, acute renal failure. Status Changes from Prescreening?: No changes Identified Actual Problem List:: Skin Intergrity, Depression, Alteration in Sleep, Mobility Impaired, Self Care Deficit, Diabetes, Hyperglycemia, Alteration/ Air Exchange, Fluid Change-Dehydration and Alteration-Leisure Activ. Potential Problem List:: DVT, Bleeding, Infection, UTI, Aspiration, Falls, Skin Integrity and Depression Risk of Complications DVT: LMWH and JOLYNN Hose Bleeding: Monitor Lab Values, Nursing to Teach Precautions for anti-coagulation therapy., Wound, if applicable, to be assessed every shift. and Stroke patients assessed for lethargy or change in status. Infection: Clinical Staff to Monitor for S/S of infection: and S/S of infection include fever, redness, warmth, etc. Urinary Tract Infection: Monitor for frequency, burning, discomfort, or incontinence. and Nursing will obtain urine sample for urinalysis and C&S when ordered. Aspiration: Clinical staff will monitor for coughing, drooling, congestion., Speech will evaluate swallowing and dsyphasia. and Nursing will monitor patient swallowing during meals. Falls: Patient will be evaluated for Fall Precautions and Patient will be placed on Fall Precautions as indicated per protocol. Skin Breakdown: Nursing will assess skin daily using assessment tool. and Nursing will place on Skin Breakdown Precautions as indicated. Pain: Clinical staff will assess patient's pain level per protocol., Medications will be given, if needed, and the pain level reassessed. and Other methods: Massage, distraction, decrease stimulus, etc. used PRN. Plan of Care Patient requires physician specializing in physical medicine and rehab oversight to provide close medical supervision of rehab issues including: Pain Management, Sleep Problems, Bowel and Bladder, Medical and co-morbidity Management, DVT prophylaxis, Rehabilitation Leadership and Coordination of treatment team Patient needs Physical Therapy: For a minimum of 1 hour and At least 5 out of 7 days Patient needs Physical Therapy to improve:: Mobility, Strengthening, Transfers, Stretching, ROM, Endurance, Stairs, Gait and Balance Patient needs Occupational Therapy: For a minimum of 1 hour and At least 5 out of 7 days Patient needs Occupational Therapy to improve ADL's incl.: Eating, Grooming, Bathing, Dressing, Toileting, Toilet transfers, Community Reintegration, Higher functioning activities, Household tasks, Adaptive Equipment, Splinting and Other activities as determined Patient requires speech therapy: For a minimum of 1 hour and At least 5 out of 7 days Patient requires speech therapy for: Swallowing, Cognition, Language Skills and Compensatory Strategies Patient requires 24 Rehabilitation Nursing for: Pain Issues, Identifying and preventing risk factors, Monitoring and reporting current medical conditions, Assisting with ambulation, transfer, and all ADL's, Teaching patients about disease process and medications, Family teaching, Providing safe environment, Bowel and Bladder Issues, Skin integrity and Medication Management Patient needs Financial Sales Manager/ Case Management for: Discharge Planning, Arranging Home Equipment or Services and Family Interventions Patient needs Dietary and Nutrition Services for: Adequate Nutrition, Nutritional Supplements and Nutritional Education Goals Goals Patient will remain: free from falls Patient will perform eating at: MOD I level of assist. Patient will perform bed mobility at: MOD I level of assist. Patient will complete transfers from bed to chair at: MOD I level of assist. Patient will ambulate: - (350 feet with least restrictive device at mod I on various surfaces) Patient will complete upper body dressing at: MOD I level of assist. Patient will complete lower body dressing at: MOD I level of assist. (With adaptive equipment as needed.) Patient will complete toilet transfer at: MOD I level of assist. Patient will complete toileting at: MOD I level of assist. Patient will perform bathing at: MOD I level of assist. Patient will perform Tub/Shower transfer at: - (Using DME as needed at supervisory level.) Patient will complete grooming at: MOD I level of assist. Patient will complete home management skills at: MOD I level of assist. Patient will achieve: 12 stairs (With 1-2 handrails at standby assist) Patient will have pain level of: of 3 or less Patient's skin will: remain intact Patient will receive: adequate nutrition. Discharge Planning Pt Prognosis for Sig. Practical Improv. w/in Reasonable Time: Good Estimated Length of stay (days): 14 Anticipated D/C Destination: Home with Outpt Therapy Was Preadmission Assessment Accurate?: Yes
[2024-03-15 10:42] VITALS: BMI 47.8
[2024-03-15 12:02] LABS: Bedside Glucose 187 mg/dL (74-106)
[2024-03-15] MEDS: Glimepiride 2 MG Tablet PO (13:06)
[2024-03-15 16:41] LABS: Bedside Glucose 187 mg/dL (74-106)
[2024-03-15] MEDS: Tamsulosin HCl 0.4 MG Capsule PO (16:50)
[2024-03-15 19:06] VITALS: PULSE 73; O2SAT 93
[2024-03-15 20:30] VITALS: BP 108/64; PULSE 77; RESP 18; TEMP 36.6; O2SAT 95
[2024-03-15] MEDS: Atorvastatin Calcium 20 MG Tablet PO (20:39)
[2024-03-15] MEDS: Arthritis Pain Compound 60 CLICK TUBE TOPICAL (20:40)
[2024-03-15 21:03] LABS: Bedside Glucose 205 mg/dL (74-106)
[2024-03-16] MEDS: Enoxaparin 40 MG/0.4 ML Syringe SC (05:25)
[2024-03-16] MEDS: Nystatin Powder 15gm Bottle 1 APPLIC TOPICAL ×2 (05:25→21:29)
[2024-03-16 07:19] LABS: Bedside Glucose 141 mg/dL (74-106)
[2024-03-16 07:47] VITALS: BP 119/74; PULSE 87; RESP 16; TEMP 36.6; O2SAT 96
[2024-03-16 08:05] VITALS: O2SAT 95
[2024-03-16] MEDS: Glimepiride 2 MG Tablet PO (08:13)
[2024-03-16] MEDS: Finasteride 5 MG Tablet PO (08:13)
[2024-03-16] MEDS: Pantoprazole Sodium 40 MG Tablet PO (08:13)
[2024-03-16] MEDS: amLODIPine 10 MG Tablet PO (08:13)
[2024-03-16] MEDS: metFORMIN HCl 1,000 MG Tablet 1000 MG PO ×2 (08:13→17:18)
[2024-03-16] MEDS: Lisinopril 40 MG Tablet PO (08:13)
[2024-03-16] MEDS: Arthritis Pain Compound 60 CLICK TUBE TOPICAL ×2 (08:14→21:28)
[2024-03-16] MEDS: buPROPion (XL) 150 MG TABLET.XL PO (08:14)
[2024-03-16 09:27] VITALS: BMI 47.7
[2024-03-16 11:58] LABS: Bedside Glucose 124 mg/dL (74-106)
[2024-03-16 16:53] LABS: Bedside Glucose 187 mg/dL (74-106)
[2024-03-16] MEDS: Tamsulosin HCl 0.4 MG Capsule PO (17:18)
[2024-03-16] MEDS: Insulin Lispro 100 UNIT/ML INSULN.PEN SC (17:18)
[2024-03-16 21:24] VITALS: BP 129/72; PULSE 78; RESP 18; TEMP 36.6; O2SAT 92
[2024-03-16] MEDS: Atorvastatin Calcium 20 MG Tablet PO (21:28)
[2024-03-16 22:26] LABS: Bedside Glucose 176 mg/dL (74-106)
[2024-03-17] MEDS: Enoxaparin 40 MG/0.4 ML Syringe SC (05:52)
[2024-03-17] MEDS: 0.9% Saline Lock 10 ML Syringe IV (05:55)
[2024-03-17] MEDS: Nystatin Powder 15gm Bottle 1 APPLIC TOPICAL ×2 (05:57→21:20)
[2024-03-17 06:00] VITALS: BMI 47.5
[2024-03-17 07:17] LABS: Bedside Glucose 138 mg/dL (74-106)
[2024-03-17 07:27] VITALS: O2SAT 94
[2024-03-17 08:10] VITALS: BP 115/65; PULSE 87; RESP 18; TEMP 36.6; O2SAT 94
[2024-03-17] MEDS: Pantoprazole Sodium 40 MG Tablet PO (08:20)
[2024-03-17] MEDS: metFORMIN HCl 1,000 MG Tablet 1000 MG PO ×2 (08:20→18:15)
[2024-03-17] MEDS: Senna/Docusate Sodium 1 Tablet 2 TABLET PO (08:20)
[2024-03-17] MEDS: amLODIPine 10 MG Tablet PO (08:20)
[2024-03-17] MEDS: Lisinopril 40 MG Tablet PO (08:20)
[2024-03-17] MEDS: Finasteride 5 MG Tablet PO (08:21)
[2024-03-17] MEDS: Glimepiride 2 MG Tablet PO (08:21)
[2024-03-17] MEDS: Arthritis Pain Compound 60 CLICK TUBE TOPICAL ×2 (08:22→21:20)
[2024-03-17] MEDS: buPROPion (XL) 150 MG TABLET.XL PO (08:23)
[2024-03-17 11:39] LABS: Bedside Glucose 142 mg/dL (74-106)
[2024-03-17 17:30] LABS: Bedside Glucose 119 mg/dL (74-106)
[2024-03-17] MEDS: Tamsulosin HCl 0.4 MG Capsule PO (18:15)
[2024-03-17] MEDS: Atorvastatin Calcium 20 MG Tablet PO (21:20)
[2024-03-17] MEDS: 0.9 % NaCl (Sterile) Posiflush 10 mL IV (21:30)
[2024-03-17 21:35] VITALS: BP 117/66; PULSE 75; RESP 17; TEMP 36.6; O2SAT 95
[2024-03-17 22:21] LABS: Bedside Glucose 162 mg/dL (74-106)
[2024-03-18] MEDS: Enoxaparin 40 MG/0.4 ML Syringe SC (05:47)
[2024-03-18] MEDS: Nystatin Powder 15gm Bottle 1 APPLIC TOPICAL ×2 (05:48→21:15)
[2024-03-18 06:00] VITALS: BMI 47.5
[2024-03-18 07:09] LABS: Bedside Glucose 136 mg/dL (74-106)
[2024-03-18 07:16] VITALS: O2SAT 95
[2024-03-18 07:48] VITALS: BP 117/71; PULSE 76; RESP 18; TEMP 36.6; O2SAT 92
[2024-03-18] MEDS: Lisinopril 40 MG Tablet PO (08:16)
[2024-03-18] MEDS: metFORMIN HCl 1,000 MG Tablet 1000 MG PO ×2 (08:16→17:26)
[2024-03-18] MEDS: Senna/Docusate Sodium 1 Tablet 2 TABLET PO (08:16)
[2024-03-18] MEDS: Arthritis Pain Compound 60 CLICK TUBE TOPICAL (08:16)
[2024-03-18] MEDS: Glimepiride 2 MG Tablet PO (08:16)
[2024-03-18] MEDS: Pantoprazole Sodium 40 MG Tablet PO (08:17)
[2024-03-18] MEDS: Finasteride 5 MG Tablet PO (08:17)
[2024-03-18] MEDS: buPROPion (XL) 150 MG TABLET.XL PO (08:17)
[2024-03-18] MEDS: amLODIPine 10 MG Tablet PO (08:17)
[2024-03-18 11:26] LABS: Bedside Glucose 121 mg/dL (74-106)
--- NOTE | 2024-03-18 13:19 | CASEMGMT ---
Social Work IDT met with patient and daughter at bedside to complete care plans meeting. Discussed patient progress with therapy (PT/OT/ST) and nursing. Patient is progressing with therapy; requires assistance contact guard. Patient continues to progress with therapy. Patient's family is requesting for sleep study. Patient's daughter inquired about treatment for situational depression. Physician, Dr. Burt provided patient with Wellbutrin. Daughter is concerned about ochoa. Patient's family does not want to patient to discharge home with ochoa. Patient will have void trial on 03/18/2024. DEVAN educated patient on private pay; next review date 03/20/24. Patient's daughter would like patient to transition to TCU on next review date via insurance. Patient's daughter informed DEVAN that if the patient is unable to obtain approval for TCU; family would like to patient to remain on IPR with private pay. DEVAN notified Experience Specialist, Ce. UBALDO Escalera
--- NOTE | 2024-03-18 15:23 | PN_ITS ---
Subjective Subjective Bahman was seen on team rounds today. His daughter Lynette was present in the room and his other daughter, Zuly, participated via phone. Afebrile VSS -blood pressure is well-controlled and the heart rate is within normal limits. Maintaining appropriate oxygen saturation on RA Oral intake - FOOD good FLUIDS good Discussed with nursing - no problems that need addressed Reviewed the THERAPY notes Medication list reviewed. Bahman denies lightheadedness, cephalgia, chest pain, shortness of breath, cough, nausea/vomiting/abdominal pain, suprapubic pain and calf tenderness. He denies dry eyes, FLEMING and constipation. Also denies insomnia. He is tolerating the Wellbutrin with no adverse side effects. I reviewed the Overnight trending pulse ox and it is very abnormal. About 50% of the monitoring period the Pulse ox was 89 or less. 1. Do you snore loudly? Yes 2. Do you often feel tired, fatigued or sleepy during the day? Yes 3. Has anyone ever observed you stop breathing during sleep? Yes 4. Do you have (or are you being treated for) HTN? Yes BMI 47.3 AGE 73 Neck circumference 48 cm Gender male Total 8 Objective Data Objective Data Vital Signs: Vital Signs Temp Pulse Resp BP Pulse Ox O2 Del Method FiO2 97.8 F 76 18 117/71 92 Room Air 21 03/18/24 07:48 03/18/24 07:48 03/18/24 07:48 03/18/24 07:48 03/18/24 07:48 03/18/24 07:48 03/15/24 19:06 Oxygen Delivery Method Room Air Weight: 320 lb 8 oz Body Mass Index (BMI) 47.5 Intake & Output: Intake and Output for Last 24 Hours 03/16/24 03/17/24 03/18/24 23:59 23:59 23:59 Intake Total 2140 / 2140 1999 / 1999 600 / 600 Output Total 2350 / 2350 2350 / 2350 1850 / 1850 Balance -210 / -210 -350 / -350 -1250 / -1250 Lab / Micro Data Labs: Laboratory Results - last 24 hr 03/17/24 17:12: POC Glucose 119 H 03/17/24 21:29: POC Glucose 162 H 03/18/24 06:39: POC Glucose 136 H 03/18/24 11:03: POC Glucose 121 H Physical Exam Const alert, oriented x3 and no apparent distress Nutritional Appearance: morbidly obese Resp normal respiratory effort, normal air movement and clear to auscultation bilaterally Resp Narrative: Not tachypneic and no conversational dyspnea. Excellent air exchange. Effort and Inspection: able to speak in complete sentences Cardio regular rate, regular rhythm, no murmurs, no rub and no gallops Cardio Narrative: No ectopy GI normal to inspection, nondistended, normoactive bowel sounds, soft to palpation and non-tender GI Narrative: No guarding with palpation. Bladder / Kidney Exam: catheter in place Extremity no calf tenderness Extremity Narrative: Peripheral edema in the LE's. MICHELLE wraps in place. Assessment & Plan Assessment/Plan (1) Debility: (2) Urinary retention: (3) Acute bilateral obstructive uropathy: (4) Acute renal failure: QUALIFIERS: Acute renal failure type: unspecified Qualified Code(s): N17.9 - Acute kidney failure, unspecified (5) Presence of indwelling Jeff catheter: (6) Depression: QUALIFIERS: Depression Type: persistent depressive disorder Qualified Code(s): F34.1 - Dysthymic disorder (7) Diabetes mellitus, type 2: QUALIFIERS: Diabetes mellitus technician terminal and repeater insulin use: without technician terminal and repeater use (8) BPH (benign prostatic hyperplasia): QUALIFIERS: Lower urinary tract symptom detail: urinary retention Lower urinary tract symptom presence: symptoms present Qualified Code(s): N40.1 - Benign prostatic hyperplasia with lower urinary tract symptoms; R33.8 - Other retention of urine (9) Obstructive sleep apnea of adult: PLAN: Plan 1. Continue therapy 2. O2 via NC at night. 3. Arrange a sleep study post DC - paperwork completed and taken to the sleep lab. 4. BS's are adequately controlled with no hypoglycemia. No adjustments to the meds today. 5. Stop Bang score- 8 6. BMP, Mag, Phos and HH on Monday 7. Continue Wellbutrin at 150 mg p.o. daily. Recommended he have psychotherapy as an outpatient. 8. Discontinue the Jeff catheter. Straight cath for postvoid residual greater than 300. Bladder scan as needed if he does not urinate within 6hours. All questions were answered to everyone's satisfaction. Charges/Coding Visit Charges Inpatient E&M: 43346 Subs Hosp L2
[2024-03-18 16:22] LABS: Mucous, Urine 0 SEEN /hpf (<or=2+); Squamous Epithelial Cells - UA 0 SEEN /hpf (0-5)
[2024-03-18 16:25] LABS: Color, Urine Yellow (Yellow); Glucose, Dipstick Normal (Normal); Ketone-Dipstick Negative (Negative); Leukocyte Esterase-Dipstick 25 /ul (Negative); Nitrite-Dipstick Negative (Negative); Occult Blood-Urine 250 /ul (Negative); Protein-Dipstick 15 mg/dl (Negative); Urine Bilirubin Dipstick Negative (Negative); Urine Clarity Clear (Clear); Urine Urobilinogen Normal (Normal)
[2024-03-18 16:49] LABS: Bacteria 1+ /hpf (None Seen); Red Blood Cells-Urine 10-25 SEEN /hpf (0-5); White Blood Cells 0-5 SEEN /hpf (0-5)
[2024-03-18] MEDS: Tamsulosin HCl 0.4 MG Capsule PO (17:26)
[2024-03-18 18:09] LABS: Bedside Glucose 99 mg/dL (74-106)
[2024-03-18] MEDS: Atorvastatin Calcium 20 MG Tablet PO (21:15)
--- NOTE | 2024-03-18 21:25 | NURSING ---
Pt Sp02 89% on RA. 2L oxygen applied for the night via NC, Sp02 96%.
[2024-03-18 21:33] VITALS: PULSE 88; RESP 18; O2SAT 96
[2024-03-18 21:43] LABS: Bedside Glucose 124 mg/dL (74-106)
[2024-03-18 22:00] VITALS: BP 107/66; PULSE 88; RESP 16; TEMP 36.7
[2024-03-19] MEDS: Nystatin Powder 15gm Bottle 1 APPLIC TOPICAL ×2 (05:23→21:57)
[2024-03-19] MEDS: Enoxaparin 40 MG/0.4 ML Syringe SC (05:23)
[2024-03-19 06:50] LABS: Bedside Glucose 126 mg/dL (74-106)
[2024-03-19 07:40] VITALS: BP 111/68; PULSE 90; RESP 18; TEMP 36.5; O2SAT 93
[2024-03-19] MEDS: Glimepiride 2 MG Tablet PO (08:10)
[2024-03-19] MEDS: Arthritis Pain Compound 60 CLICK TUBE TOPICAL ×2 (08:10→21:57)
[2024-03-19] MEDS: amLODIPine 10 MG Tablet PO (08:10)
[2024-03-19] MEDS: metFORMIN HCl 1,000 MG Tablet 1000 MG PO ×2 (08:10→16:25)
[2024-03-19] MEDS: Finasteride 5 MG Tablet PO (08:11)
[2024-03-19] MEDS: Lisinopril 40 MG Tablet PO (08:11)
[2024-03-19] MEDS: Pantoprazole Sodium 40 MG Tablet PO (08:11)
[2024-03-19] MEDS: buPROPion (XL) 150 MG TABLET.XL PO (08:15)
[2024-03-19] MEDS: 0.9 % NaCl (Sterile) Posiflush 10 mL IV (10:16)
[2024-03-19 11:55] LABS: Bedside Glucose 92 mg/dL (74-106)
--- NOTE | 2024-03-19 13:11 | CASEMGMT ---
Social Work SW met with patient at bedside to complete initial intake assessment. Patient is a private pay while on IPR. SW informed patient that next review will be on 03/20. Patient informed SW that current plan is to transition to TCU pending insurance approval. Patient confirmed demographics and contact information. Patient informed SW that an advanced directive was completed by [facility], but he does not have the original copy to provide copy for [facility] medical charts. Patient informed SW that his daughter, Lynette is assigned primary decision maker on advanced directive. Patient informed SW that he has no history of home health care or outpatient therapy. Patient informed SW that he has goals to return home post acute rehab. SW provided patient's daughter with resources for grab bars/rail installations. Patient will require sleep study at discharge. Patient denies any current concerns. SW will continue to monitor for discharge plans UBALDO Escalera
[2024-03-19] MEDS: Tamsulosin HCl 0.4 MG Capsule PO (16:25)
[2024-03-19 17:06] LABS: Bedside Glucose 105 mg/dL (74-106)
[2024-03-19 21:30] VITALS: BP 117/61; PULSE 78; RESP 17; TEMP 36.6; O2SAT 93
[2024-03-19] MEDS: Atorvastatin Calcium 20 MG Tablet PO (21:57)
[2024-03-19 22:59] LABS: Bedside Glucose 108 mg/dL (74-106)
--- NOTE | 2024-03-20 02:30 | NURSING ---
Reviewed and agree with Abhishek RIVERA, documentation and assessment charting.
[2024-03-20 05:52] LABS: Hematocrit 36.4 % (40-54); Hemoglobin 11.3 g/dL (13.0-16.5)
[2024-03-20 06:16] LABS: Anion Gap 4 (5-15); BUN 20 mg/dL (7-18); BUN/Creat Ratio 21.6 RATIO (10-20); Calcium,Total 8.9 mg/dL (8.5-10.1); Chloride 102 mmol/L (98-107); Creatinine, Serum 0.93 mg/dL (0.70-1.30); EST Glomerular Filtration Rate 85 mL/min (>60); Est Glom Filt Rate - Afr Amer 103 mL/min (>60); Estimated Creatinine Clearance 103.63 ml/min; Glucose 125 mg/dL (74-106); Magnesium 1.5 mg/dL (1.6-2.6); Phosphorus 3.7 mg/dL (2.5-4.9); Potassium 4.3 mmol/L (3.5-5.1); Sodium Level 136 mmol/L (136-145)
[2024-03-20] MEDS: Enoxaparin 40 MG/0.4 ML Syringe SC (06:39)
[2024-03-20] MEDS: Nystatin Powder 15gm Bottle 1 APPLIC TOPICAL ×2 (06:39→22:03)
[2024-03-20 07:22] LABS: Bedside Glucose 111 mg/dL (74-106)
[2024-03-20 07:25] VITALS: BP 129/75; PULSE 80; RESP 18; TEMP 36.7; O2SAT 95
[2024-03-20] MEDS: amLODIPine 10 MG Tablet PO (08:24)
[2024-03-20] MEDS: metFORMIN HCl 1,000 MG Tablet 1000 MG PO ×2 (08:24→17:42)
[2024-03-20] MEDS: Pantoprazole Sodium 40 MG Tablet PO (08:25)
[2024-03-20] MEDS: Lisinopril 40 MG Tablet PO (08:25)
[2024-03-20] MEDS: buPROPion (XL) 150 MG TABLET.XL PO (08:25)
[2024-03-20] MEDS: Arthritis Pain Compound 60 CLICK TUBE TOPICAL ×2 (08:25→22:03)
[2024-03-20] MEDS: Finasteride 5 MG Tablet PO (08:25)
[2024-03-20] MEDS: Glimepiride 2 MG Tablet PO (08:26)
--- NOTE | 2024-03-20 09:43 | CASEMGMT ---
Addendum entered by Serena Heller 03/20/24 12:38: DEVAN contacted patient's daughter, Lynette to discuss discharge plans. DEVAN inquired about plan of care, should patient receive denial for placement on TCU. Lynette informed DEVAN that she has been in contact with patient's [employer] insurance and received notification that Physician can write a letter to insurance to order for patient to transition to TCU for two weeks. Lynette expressed concerns for the patient to discharge home at this time due to patient requiring assistance in home. Lynette informed DEVAN that she is unable to provide 24 hour care for patient in home. Lynette informed DEVAN that she and sister, Zuly are unable to take time from work to assist patient with care. Lynette informed DEVAN that private pay was decided to assist patient with getting into IPR, but insurance should cover for the Transitional Care Unit. In addition, Lynette expressed concerns for patient limited voiding and straight cath needs at this time. DEVAN informed Lynette that insurance will review patient's skilled needs to determine, if he is appropriate for TCU. If insurance denies referral for placement, the patient has the right to appeal discharge. DEVAN informed Lynette that the patient has the option to private pay for TCU or IPR while insurance is pending and if insurance denies placement. Lynette informed DEVAN that she would appeal determination, if insurance denies placement. Lynette requested for a peer to peer. DEVAN educated Lynette on the process for peer to peer. DEVAN discussed home health care and private duty care with daughter. Lynette informed DEVAN that if patient requires private pay for placement. Lynette informed DEVAN that she does not believe the patient is appropriate to discharge at this time. Lynette informed DEVAN that family are willing to pay, but would like to advocate for patient to obtain placement on TCU. Lynette requested for Physician to make contact to discuss Physician Letter for placement on TCU. UBALDO Escalera Addendum entered by Serena Heller 03/20/24 11:48: 1009 DEVAN received a call from patient informing CM that between he believes transitioning to TCU would be better for him at this time. DEVAN notified Ce and Dr. Burt. Patient referral for pre-cert was escalated for insurance determination for TCU. Original Note: Social Work SW attempted to contact patient's daughterLynette to discuss care; no answer. SW left a voicemail requesting return call. UBALDO Escalera
[2024-03-20 11:40] LABS: Bedside Glucose 126 mg/dL (74-106)
[2024-03-20 16:40] LABS: Bedside Glucose 98 mg/dL (74-106)
--- NOTE | 2024-03-20 16:47 | CASEMGMT ---
Social Work SW met with patient at bedside to discuss discharge plans. SW informed patient of discussion with daughter and options for placement. SW notified patient that [employer] insurance pre certification is pending for TCU. Patient was informed that current private pay covers for today 03/20. Patient was notified that private pay is required to cover stay while insurance is pending. SW informed patient of Transitional Care Unit private pay cost $660. Patient informed SW that he would like patient to cover cost of payment for TCU. Patient was informed that if insurance approves for TCU, refund will be provided. Patient informed SW that he is agreeable to placement on 03/21/2024. SW notified care team. Discharge: TCU Private Pay UBALDO Escalera
[2024-03-20] MEDS: Tamsulosin HCl 0.4 MG Capsule PO (17:43)
[2024-03-20 22:00] VITALS: BP 132/75; PULSE 82; RESP 18; TEMP 36.6; O2SAT 99
[2024-03-20] MEDS: Atorvastatin Calcium 20 MG Tablet PO (22:03)
[2024-03-20 23:37] LABS: Bedside Glucose 114 mg/dL (74-106)
[2024-03-21] MEDS: Enoxaparin 40 MG/0.4 ML Syringe SC (05:13)
[2024-03-21] MEDS: Nystatin Powder 15gm Bottle 1 APPLIC TOPICAL (05:14)
[2024-03-21 06:00] VITALS: BMI 46.7
[2024-03-21 07:26] LABS: Bedside Glucose 113 mg/dL (74-106)
[2024-03-21 07:54] VITALS: BP 115/64; PULSE 79; RESP 16; TEMP 36.4; O2SAT 95
[2024-03-21] MEDS: Finasteride 5 MG Tablet PO (08:45)
[2024-03-21] MEDS: metFORMIN HCl 1,000 MG Tablet 1000 MG PO ×2 (08:45→16:51)
[2024-03-21] MEDS: Lisinopril 40 MG Tablet PO (08:45)
[2024-03-21] MEDS: Pantoprazole Sodium 40 MG Tablet PO (08:45)
[2024-03-21] MEDS: Glimepiride 2 MG Tablet PO (08:45)
[2024-03-21] MEDS: buPROPion (XL) 150 MG TABLET.XL PO (08:45)
[2024-03-21] MEDS: amLODIPine 10 MG Tablet PO (08:45)
[2024-03-21] MEDS: Arthritis Pain Compound 60 CLICK TUBE TOPICAL (08:46)
[2024-03-21] MEDS: Magnesium Chloride 64 MG Delay Rel.Tablet 128 MG PO (12:03)
[2024-03-21 12:09] LABS: Bedside Glucose 96 mg/dL (74-106)
--- NOTE | 2024-03-21 14:11 | TREXTCAR_ITS ---
Diet Diet Order/Speech Therapy: 03/15/24 10:34 Diet: Consistent Carb - Calorie Controlled Dietary Modifications:: Cardiac / Heart Healthy Is pt able to select menu?: Yes How many daily calories?: 1800 calorie Routine Orders/Code Status Enema Type: Fleetz Enema Frequency: Daily PRN O2 Liters per Minute: 2 O2 Frequency: PRN (anytime he is sleeping he must be on oxygen) Keep PO Greater than or Equal to (%): 90 Routine Lab Work: - (Magnesium on 03/26/24) Code Status: Full Code Wound(s) right LE: Wound Type: Abrasion left LE: Wound Type: Abrasion mid lower abd: Wound Type: Abrasion Therapies Weight Bearing: Full weight bearing Extremity Affected:: Bilateral Lower (generalized weakness) and Bilateral Upper Physical Therapy: Eval and Treat Occupational Therapy: Eval and Treat Speech Therapy: Eval and Treat Problem/Diagnosis (1) Debility: Status: Acute Code(s): R53.81 - Other malaise Comment: Due to septic shock and acute renal failure with generalized weakness. (2) Urinary retention: Status: Acute Code(s): R33.9 - Retention of urine, unspecified Plan: Pt is to stand and try to urinate every 4 hours while awake, even if does no feel as though he has to go. He was instructed to bear down if needed. Comment: Was previously on Flomax prior to hospital admission for BPH. Has a urologist he sees. Proscar was added recently. Please use Lidocaine Urojet with straight catheterization. (3) Acute bilateral obstructive uropathy: Status: Resolved Code(s): N13.9 - Obstructive and reflux uropathy, unspecified (4) Acute renal failure: Status: Resolved Code(s): N17.9 - Acute kidney failure, unspecified (5) Presence of indwelling Jeff catheter: Status: Acute Code(s): Z97.8 - Presence of other specified devices Plan: The catheter was discontinued. We have been straight cathing for residual > 300. He sometimes does not even wnat to try and urinate and just asks to be straight cath'd because he does not feel the urge to go. I suspect he has been retaining urine for a while now and his bladder is baggy with poor tone. Will continue to straight cath as needed. Bladder scan every 6 hours and straight cath if > 300. He is to stand and try to urinate every 4 hours while awake during the day and should bear down to initiate stream if necessary. (6) Depression: Status: Chronic Code(s): F32.A - Depression, unspecified Plan: This is long standing and started when his suddenly 10 years ago. Has never been on an antidepressant and has never had any Psychotherapy. Undiagnosed/untreated JULIO contributes to this because he is chronically sleep deprived. On the overnight trending pulse done at admission to rehab he was 89% or less on RA for 50% of the time he was monitored. He has been started on Wellbutrin XL 150 mg daily and is tolerating well. Would increase to 300 mg daily in another 3-4 days if he continues to tolerate with no adverse side effects. He needs to go to counselling following discharge from TCU. (7) Diabetes mellitus, type 2: Status: Chronic Code(s): E11.9 - Type 2 diabetes mellitus without complications Plan: Previously diagnosed with glucose intolerance. Was on GLucophage as an OP. HGBA1C at admission to hospital was 6.8 and he was diagnosed with DM II. Amaryl has been added to his drug regimen and the blood sugars have been well controlled. Weight loss and regular exercise was recommended. I recommend he follow up with the OP diabetic clinic run by the dieticians following DC from the hospital and he will need a referral from his PCP. On an 1800 calorie diet he has lost 7 lbs in the short time he was on rehab. Comment: New diagnosis. Formerly diagnosed with glucose intolerance. (8) BPH (benign prostatic hyperplasia): Status: Chronic Code(s): N40.0 - Benign prostatic hyperplasia without lower urinary tract symptoms Plan: He will follow up with his urologist following DC from TCU. Will continue Proscar and Flomax and bladder retraining. (9) Obstructive sleep apnea of adult: Status: Suspected Code(s): G47.33 - Obstructive sleep apnea (adult) (pediatric) Plan: Very abnormal overnight trending pulse ox with pulse ox less than 89% almost 50% of the time he was monitored. He is being scheduled for a formal sleep study on 03/27/24 in the sleep lab at [facility] and then will follow up with pulmonary medicine. He will need home oxygen at DC from TCU and should have a repeat overnight trending pulse ox within 24H of DC from TCU so that the home oxygen can be ordered. (10) Barretts esophagus: Status: Chronic Code(s): K22.70 - Santacruz's esophagus without dysplasia (11) Dysphagia: Status: Acute Code(s): R13.10 - Dysphagia, unspecified Plan: Should follow up with Dr. Brar going forward for esophageal stenosis and Santacruz's esophagus. Will continue the PPI and encourage weight loss. Also encouraged him to avoid caffeine, peppermints and chocolate. Comment: Due to Schatzki's ring which was dilated by Dr. Brar in February 2024. (12) Hypomagnesemia: Status: Acute Code(s): E83.42 - Hypomagnesemia Plan 1. DC to TCU. Plan DC from TCU on Monday03/27/24 and will go to the sleep lab. His daughters will be back in town on 03/26/24 to assist him as needed at home. Allergies/Procedures Done in Hospital Allergies No Known Allergies Allergy (Verified 03/06/24 09:44) Procedures: EGD (03/09/[address] Brar.) Type of Care/Length of Stay Estimated LOS: Convalescent Care Less Than 30 days Type of Care Needed: Skilled Rehab Potential: Good Prognosis: Good Additional Orders/Day of Discharge Additional Orders: He has very little confidence in himself and has a hard tome making decisions. I suspect this has everything to do with depression and untreated sleep apnea. He needs a lot of encouragement. He is actually doing well in therapy. I think he would be fine at home by himself but, he is fearful and wants to wait until his daughters are back from out of state. H&P will serve as current which was dated: 03/14/24 Day of Discharge: 03/21/24 Dietary and Speech Recommendations Dietitian Recommendations/Changes: Continue 1800 nixon CHO Control/ Cardiac diet as ordered Will provide diet education prior to d/c if desired by pt. Follow Up Care Please follow up with your Primary Care Physician in: Following DC from TCU Please Follow Up With: psychotherapy When: follwoing DC from U Please Follow Up With: urology When: He should make an appt to see his urologist to for BPH with retention Discharge Plan Admission Admit Date/Time: 03/14/24 12:19 Primary Reason for Your Visit: Debility due to generalized weakness. Attending Provider: Maki Burt Primary Care Provider: Sean Valencia Instructions Patient Instructions: Losing Weight for Heart Health, What Are Snoring and Sleep Apnea?, Depression Affects Your Mind ..., Counseling for Depression, Depression: Tips to Help Yourself, Depression Family Support, Weight Management: Getting Started, Weight Loss Barriers, ED Urinary Retention, Male Additional Instructions / Restrictions: 1. When you chronically retain urine the bladder becomes dilated and loses its tone. It gets baggy You are used to having urine retention and you have lost the sensation to urinate when the bladder is full. We have to retrain your bladder. I want you to stand and try and urinate in the toilet every 4 hours during the day.......whether you feel like you have to urinate or not. If you have to bear down to get the stream of urine started. We have added a second medication to help with the prostate. It is called Proscar. This medication helps to shrink the prostate BUT, it can take a few months to do this. You will need to follow up with your urologist following DC from [facility]. 2. You now have diabetes. I think if you can lose weight you will be able to be controlled with oral medications alone and will not have to go on insulin. Losing weight is hard but, when you lose weight your BP and blood sugars will be better and you will feel better. Most people who are severely depressed gain weight because food is a comfort to them. In order for you to be able to lose weight It is essential to get the depression under control and also get the sleep apnea treated in order for you to optimize weight loss. The education program manager's at the hospital have a diabetic clinic and they also run a program called [facility]. Dr. Valencia will need to write a requisition for you to attend these programs. They have helped a lot of people and I think you would benefit greatly from following up with them post dicharge. 3. I do not think you are familiar with the symptoms of depression......many depressed people are not aware that they are depressed. Symptoms of depression include loss of motivation to take care of yourself, decline in memory, emotional lability, crying a lot over things that would not have bothered you in the past, weight gain or in some cases weight loss, trouble sleeping or feeling sleepy all the time, decreased interest in doing the things you used to enjoy, isolating at home and not getting out of the house, inability to make decisions, not socializing with friends and family, loss of self esteem, loss of confidence in yourself, etc. Depression feels terrible but, it is treatable. Medication alone is not going to be enough for you because you have had long standing depression and your are stuck. You need counselling. There are many good places in [place] to get counselling. The social media designer can give you a list of the control systems specialist accepting new patients in [place]. 4. Untreated sleep apnea leads to high blood pressure in the lungs and swelling in the legs, daytime somnolence, problems with the rhythm of the heart (such as atrial fibrillation), addictions (food is one of the addictions), restless leg syndrome, depression, memory difficulties, lack of motivation etc. 5. It has been a pleasure getting to know you. I wish you luck with getting the depression and sleep apnea treated. If I can be of any help or if you or your family have questions after you leave please do not hesitate to call. OFFICE: [phone] CELL: [phone] Discharge Orders/Prescriptions Prescriptions: New Arthritis Pain Compound 0 click topical BID Qty: 0 0RF sennosides-docusate sodium [Stool Softener-Stimulant Laxat] 8.6-50 mg Tablet 2 tab PO BID Qty: 1 0RF glimepiride 2 mg Tablet 2 mg PO BREAKFAST Qty: 1 0RF bupropion HCl 150 mg Tablet Extended Release 24 Hr 150 mg PO DAILY Qty: 1 0RF magnesium chloride [Mag 64] 64 mg Tablet,Delayed Release (Dr/Ec) 128 mg PO DAILY Qty: 1 0RF Continued simvastatin See Rx Instructions PO DAILY Rx Instructions: 40 MG DAILY AT HS orally daily; metformin 1,000 mg PO BID lisinopril See Rx Instructions PO DAILY Rx Instructions: 40 MG orally daily; amlodipine [Norvasc] 10 mg tablet 10 mg PO DAILY omeprazole 40 mg capsule,delayed release(DR/EC) 40 mg PO DAILY acetaminophen 325 mg Tablet 650 mg PO Q6H PRN PRN (Reason: Pain 1-10 Or Fever >100.7) Qty: 0 0RF tamsulosin 0.4 mg Capsule 0.4 mg PO DAILY@1730 Qty: 0 0RF finasteride 5 mg Tablet 5 mg PO DAILY Qty: 0 0RF Discontinued ipratropium-albuterol 0.5 mg-3 mg(2.5 mg base)/3 mL Solution For Nebulization 3 ml inhalation Q4H PRN PRN (Reason: Shortness Of Breath) Qty: 0 0RF cefdinir 300 mg Capsule 300 mg PO Q12 Qty: 4 0RF oxycodone 5 mg Tablet 2.5 - 5 mg PO Q4H PRN PRN (Reason: Pain Score 4-10) Qty: 0 0RF Referrals / Follow Up: Sean Valencia MD [Primary Care Provider] - Disposition Disposition (needs filled in before D/C Order can be placed): Nursing Home Facility (4) Acute renal failure Qualifiers: Acute renal failure type: unspecified Qualified Code(s): N17.9 - Acute kidney failure, unspecified (6) Depression Qualifiers: Depression Type: persistent depressive disorder Qualified Code(s): F34.1 - Dysthymic disorder (7) Diabetes mellitus, type 2 Qualifiers: Diabetes mellitus intermodal customer service insulin use: without intermodal customer service use (8) BPH (benign prostatic hyperplasia) Qualifiers: Lower urinary tract symptom presence: symptoms present Lower urinary tract symptom detail: urinary retention Qualified Code(s): N40.1 - Benign prostatic hyperplasia with lower urinary tract symptoms; R33.8 - Other retention of urine (10) Barretts esophagus Qualifiers: Santacruz's esophagus type: without dysplasia Qualified Code(s): K22.70 - Santacruz's esophagus without dysplasia (11) Dysphagia Qualifiers: Dysphagia type: unspecified Qualified Code(s): R13.10 - Dysphagia, unspecified
--- NOTE | 2024-03-21 14:23 | CASEMGMT ---
Social Work SW met with patient to discuss discharge. Patient anticipates transition to TCU from [facility] under private pay pending insurance. SW informed patient of weekly cost of private pay for TCU. Patient informed SW that he is agreeable to pay for stay while insurance authorization is pending. SW informed patient of procedure for obtaining payment for TCU. Patient will provide check on arrival or have family go to [facility]. Patient denies any concerns at this time. SW will continue to follow to assist with discharge planning. UBALDO Escalera
--- NOTE | 2024-03-21 15:27 | DS.PCM_ITS ---
Providers Date of Admission: 03/14/24 Date of Discharge: 03/21/24 Primary Care Physician: Dr. Sean Valencia MD Reason For Visit: DEBILITY Diagnosis Discharge Diagnosis (1) Debility: Status: Acute Code(s): R53.81 - Other malaise (2) Urinary retention: Status: Resolved Code(s): R33.9 - Retention of urine, unspecified Plan: Retaining at DC. Taking Flomax and Proscar. Will need to follow up with his urologist. (3) Acute bilateral obstructive uropathy: Status: Resolved Code(s): N13.9 - Obstructive and reflux uropathy, unspecified Plan: Resolved with insertion of Jeff catheter. Being discharged with a Jeff. Failed repeat voiding trial on Flomax and Proscar. will follow up with urology going forward. (4) Acute renal failure: Status: Resolved Code(s): N17.9 - Acute kidney failure, unspecified Qualifiers: Acute renal failure type: unspecified Qualified Code(s): N17.9 - Acute kidney failure, unspecified Plan: Due to obstructive uropathy. (5) Presence of indwelling Jeff catheter: Status: Chronic Code(s): Z97.8 - Presence of other specified devices (6) Depression: Status: Chronic Code(s): F32.A - Depression, unspecified Qualifiers: Depression Type: persistent depressive disorder Qualified Code(s): F 34.1 - Dysthymic disorder Plan: This is long standing and started when his suddenly 10 years ago. Has never been on an antidepressant and has never had any Psychotherapy. Undiagnosed/untreated JULIO contributes to this because he is chronically sleep deprived. On the overnight trending pulse done at admission to rehab he was 89% or less on RA for 50% of the time he was monitored. He has been started on Wellbutrin XL 150 mg daily and is tolerating well. Would increase to 300 mg daily in another 3-4 days if he continues to tolerate with no adverse side effects. He needs to go to counselling following discharge from TCU. (7) Diabetes mellitus, type 2: Status: Chronic Code(s): E11.9 - Type 2 diabetes mellitus without complications Qualifiers: Diabetes mellitus intermediate card tender insulin use: without prison use Diabetes mellitus complication status: without complication Qualified Code(s): E11.9 - Type 2 diabetes mellitus without complications Plan: Previously diagnosed with glucose intolerance. Was on GLucophage as an OP. HGBA1C at admission to hospital was 6.8 and he was diagnosed with DM II. Amaryl has been added to his drug regimen and the blood sugars have been well controlled. Weight loss and regular exercise was recommended. I recommend he follow up with the OP diabetic clinic run by the dieticians following DC from the hospital and he will need a referral from his PCP. On an 1800 calorie diet he has lost 7 lbs in the short time he was on rehab. (8) BPH (benign prostatic hyperplasia): Status: Chronic Code(s): N40.0 - Benign prostatic hyperplasia without lower urinary tract symptoms Qualifiers: Lower urinary tract symptom detail: urinary retention Lower urinary tract symptom presence: symptoms present Qualified Code(s): N40.1 - Benign prostatic hyperplasia with lower urinary tract symptoms; R33.8 - Other retention of urine (9) Obstructive sleep apnea of adult: Status: Suspected Code(s): G47.33 - Obstructive sleep apnea (adult) (pediatric) Plan: Very abnormal overnight trending pulse ox with pulse ox less than 89% almost 50% of the time he was monitored. He is being scheduled for a formal sleep study on 03/27/24 in the sleep lab at [facility] and then will follow up with pulmonary medicine. He will need home oxygen at DC from TCU and should have a repeat overnight trending pulse ox within 24H of DC from TCU so that the home oxygen can be ordered. (10) Barretts esophagus: Status: Chronic Code(s): K22.70 - Santacruz's esophagus without dysplasia Qualifiers: Santacruz's esophagus type: without dysplasia Qualified Code(s): K22.70 - Santacruz's esophagus without dysplasia (11) Dysphagia: Status: Resolved Code(s): R13.10 - Dysphagia, unspecified Qualifiers: Dysphagia type: unspecified Qualified Code(s): R13.10 - Dysphagia, unspecified Plan: Should follow up with Dr. Brar going forward for esophageal stenosis and Santacruz's esophagus. Will continue the PPI and encourage weight loss. Also encouraged him to avoid caffeine, peppermints and chocolate. (12) Hypomagnesemia: Status: Acute Code(s): E83.42 - Hypomagnesemia Plan 1. DC to TCU. Plan DC from TCU on Monday03/27/24 and will go to the sleep lab. His daughters will be back in town on 03/26/24 to assist him as needed at home. Medications at Discharge Home Medications amlodipine 10 mg tablet (Norvasc) 10 mg PO DAILY BLOOD PRESSURE 03/06/24 lisinopril See Rx Instructions PO DAILY BLOOD PRESSURE 03/06/24 omeprazole 40 mg capsule,delayed release 40 mg PO DAILY GERD 03/06/24 simvastatin See Rx Instructions PO DAILY LOWERS CHOLESTEROL 03/06/24 acetaminophen 325 mg tablet 650 mg (2 x 325 mg) PO Q6H PRN PRN Pain 1-10 Or Fever >100.7 #0 tabs 03/14/24 bupropion HCl 150 mg 24 hr tablet, extended release 150 mg PO DAILY 30 days #30 tabs 03/25/24 finasteride 5 mg tablet 5 mg PO DAILY 30 days #30 tabs 03/25/24 magnesium chloride 64 mg (magnesium chloride) tablet,delayed release (Mag 64) 128 mg (2 x 64 mg) PO DAILY 30 days #60 tabs 03/25/24 metformin 500 mg tablet 500 mg PO BIDCM 30 days #60 tabs 03/25/24 tamsulosin 0.4 mg capsule 0.8 mg (2 x 0.4 mg) PO DAILY@1730 30 days #60 caps 03/25/24 Hospital Course Operations None Procedures EGD (03/09/[address] Perez Friend. Small Schatzki's ring and hiatal hernia. Pathology consistent with Santacruz's esophagus with no evidence of dysplasia.) Summary of Care Provided Minutes Spent on Discharge: 35 Hospital Course: RISHI STRATTON, is a 73-year-old M with a past medical history of hyperlipidemia, hypertension, BPH(not medicated but started on Flomax in the hospital)), colon polyp, morbid obesity, GERD, osteoarthritis, depression (had never been on an antidepressant or had psychotherapy), BPH and glucose intolerance who presented to the emergency department at [facility] on 03/06/2024 after a fall at home. He had been having diarrhea and weakness and he slipped and fell in his feces. He fell forward and struck his face but denied any loss of consciousness. Diarrhea had resolved prior to presenting to the ED and he c/o inability to urinate with persistent generalized weakness. He felt his abdomen was firmer than normal. His dtr, who stayed with him the night of the , told the ER doc that his pulse ox was dropping into the 70's while he was sleeping. Lab in the emergency department showed an elevated white blood cell count of 13, a low sodium at 132, elevated potassium at 5.1 and a markedly elevated creatinine at 9.31 with a BUN of 146. LFTs were mildly elevated. A bedside ultrasound revealed a markedly distended bladder up to the level of the umbilicus. Jeff catheter was inserted and he had 25-50 red cells and only 0-5 WBCs. It was nitrite negative. Chest x-ray showed no acute abnormalities. CT head showed no acute abnormalities. Abdomen and pelvis CT showed distended renal collecting system bilaterally more likely than not secondary to chronic bladder outlet obstruction. Dehydration from severe diarrhea also likely contributed to acute renal failure. There was prostatic enlargement and evidence of diverticulosis. There was fat stranding along the mesentery of the left colon without focal wall thickening.. He was admitted to the hospitalist service with a diagnosis of acute kidney injury most likely secondary to bladder outlet obstruction. He was started on tamsulosin. Late on the night of 03/06/2024 he developed a low-grade fever, increased confusion and low blood pressure. The night hospitalist evaluated him and felt he may have an intra-abdominal infection. Lactic acid was normal. He was started on vancomycin and Zosyn and transferred to the ICU. Blood cultures were ordered and were positive for pansensitive E. coli. Vanco and Zosyn were discontinued and he was started on Rocephin. Urine culture had no growth so I presume the E. Coli was due to colitis. He eventually required pressors to maintain the BP. While in the hospital he was seen in consultation by Dr. Brar from GI for c/o dysphagia (both liquids and solids) and an EGD was recommended. The EGD was performed on 03/09/2024 and showed a Schatzki's ring which was dilated. There were mucosal changes suggestive of eosinophilic fasciitis and biopsies were obtained. He had a small hiatal hernia. The first portion of the duodenum was normal. He was placed on antacids and his swallowing improved. The esophageal biopsy was consistent with Santacruz's esophagus but negative for dysplasia. He was seen by PT/OT in the hospital and a recommendation for acute rehab at [place] was made. He had been living by himself prior to admission to the hospital and was independent with ADL's. He was transferred to the acute inpt rehab unit at [facility] on 03/14/24 for 3 hours of therapy daily to restore function/independence at or near his level prior to admission to the hospital. An overnight pulse ox was done at presentation to rehab. It was markedly abnormal and approximately 50% of the time the pulse ox on RA was less than 89%. He was placed on supplemental oxygen anytime he was sleeping. A formal sleep study was ordered and will be done on the night he is discharged from TCU. Bahman admitted to being depressed. He was very tearful at times nestor when talking about his who suddenly about 10 years ago. He told me that he had gained a lot of weight after she passed. He was not motivated to do the things he needed to do to take care of himself. He had a very hard time making decisions and looked to his daughters to do that for him. When we did a voiding trial he had to be told to stand to urinate and bear down if needed. He was told to try and urinate every 4 hours while awake, even if he did not feel the urge to urinate. I had to explain this to him a few days in a row. He was happy to just have the nurses straight cath him. He failed a voiding trial just prior to transfer to TCU and he was at that point on both Flomax and Proscar. He will need to follow up with his urologist following DC from [facility] or he can follow up with Dr. Alex if he desires. Bahman was agreeable to starting an antidepressant and he was started on Wellbutrin. He tolerated this with no adverse side effects and this will be continued at [facility] to [facility]. I explained that his depression is no longer just situational depression since he has been depressed for the past 10 years. I recommended that he follow up with psychotherapy following DC from U. I explained to him that antidepressants and psychotherapy go hand in hand and work better than either modality alone. Bahman did well in therapy. The TEAM felt that he would be good going home alone but, he was afraid to go home when his daughters would be out of town. He opted to go to TCU until his daughters returned which would be on 03/27/24. The sleep lab was keeping a spot open for him to have a sleep study (split study) on the night of 03/27/24. He was discharged to TCU on 03/21/24. He will follow up with his PCP and urology following DC from TCU. Physical Exam Const alert General Appearance: cooperative HEENT normocephalic Eyes PERRL and EOMs intact bilaterally Neck supple, no JVD and no carotid bruits Resp normal respiratory effort, normal air movement and clear to auscultation bilaterally Cardio regular rate and regular rhythm GI normal to inspection, nondistended, normoactive bowel sounds, non-tender and non-distended Bladder / Kidney Exam: catheter in place urethral Extremity normal capillary refill General Extremity: Negative for edema Skin no rashes or lesions noted General Skin Exam: no breakdown Psych Psych Narrative: Poor motivation to do things to help himself. Flat affect. Tears up easily. Has difficulty making decisions and has no confidence in his ability to take care of himself and make decisions. Relies on his daughters heavily. Appearance: appropriate Mood & Affect: depressed Thought Content: No suicidality Weight / BMI Weight Weight: 315 lb 8 oz Body Mass Index (BMI) 46.7 ABG / Lab / Microbiology Data 03/20/24 05:26 03/20/24 05:26 Laboratory: Laboratory Results - last 24 hr 03/20/24 16:23: POC Glucose 98 03/20/24 22:40: POC Glucose 114 H 03/21/24 06:14: POC Glucose 113 H 03/21/24 11:44: POC Glucose 96 Meaningful Use Info Meaningful Use Meaningful Use Diagnoses (Choose all that apply): None applicable Ischemic Stroke Statin Dosing Therapy Reference: STATIN DOSE THERAPY REFERENCE: * Patients > 75 years receive moderate or high dose statin therapy. * Patients 75 years or YOUNGER should receive HIGH intensity statin dose unless contraindicated. You will be required to document reason for non-treatment if statin daily dose does not meet guidelines. HIGH DOSE STATIN THERAPY DAILY Atorvastatin > than or = to 40 mg Rosuvastatin > than or = to 20 mg Amlodipine + Atorvastatin > than or = to 2.5/40 mg Ezetimibe + Simvastatin 10/80 mg Simvastatin 80mg Discharge Plan Admission Admit Date/Time: 03/14/24 12:19 Primary Reason for Your Visit: Debility due to generalized weakness. Attending Provider: Maki Burt Primary Care Provider: Sean Valencia Instructions Patient Instructions: Losing Weight for Heart Health, What Are Snoring and Sleep Apnea?, Depression Affects Your Mind ..., Counseling for Depression, Depression: Tips to Help Yourself, Depression Family Support, Weight Management: Getting Started, Weight Loss Barriers, ED Urinary Retention, Male Additional Instructions / Restrictions: 1. When you chronically retain urine the bladder becomes dilated and loses its tone. It gets baggy You are used to having urine retention and you have lost the sensation to urinate when the bladder is full. We have to retrain your bladder. I want you to stand and try and urinate in the toilet every 4 hours during the day.......whether you feel like you have to urinate or not. If you have to bear down to get the stream of urine started. We have added a second medication to help with the prostate. It is called Proscar. This medication helps to shrink the prostate BUT, it can take a few months to do this. You will need to follow up with your urologist following DC from [facility]. 2. You now have diabetes. I think if you can lose weight you will be able to be controlled with oral medications alone and will not have to go on insulin. Losing weight is hard but, when you lose weight your BP and blood sugars will be better and you will feel better. Most people who are severely depressed gain weight because food is a comfort to them. In order for you to be able to lose weight It is essential to get the depression under control and also get the sleep apnea treated in order for you to optimize weight loss. The emission specialist's at the hospital have a diabetic clinic and they also run a program called [facility]. Dr. Valencia will need to write a requisition for you to attend these programs. They have helped a lot of people and I think you would benefit greatly from following up with them post dicharge. 3. I do not think you are familiar with the symptoms of depression......many depressed people are not aware that they are depressed. Symptoms of depression include loss of motivation to take care of yourself, decline in memory, emotional lability, crying a lot over things that would not have bothered you in the past, weight gain or in some cases weight loss, trouble sleeping or feeling sleepy all the time, decreased interest in doing the things you used to enjoy, isolating at home and not getting out of the house, inability to make decisions, not socializing with friends and family, loss of self esteem, loss of confidence in yourself, etc. Depression feels terrible but, it is treatable. Medication alone is not going to be enough for you because you have had long standing depression and your are stuck. You need counselling. There are many good places in [place] to get counselling. The high school social studies teacher can give you a list of the head orthopedic team physician accepting new patients in [place]. 4. Untreated sleep apnea leads to high blood pressure in the lungs and swelling in the legs, daytime somnolence, problems with the rhythm of the heart (such as atrial fibrillation), addictions (food is one of the addictions), restless leg syndrome, depression, memory difficulties, lack of motivation etc. 5. It has been a pleasure getting to know you. I wish you luck with getting the depression and sleep apnea treated. If I can be of any help or if you or your family have questions after you leave please do not hesitate to call. OFFICE: [phone] CELL: [phone] Discharge Orders/Prescriptions Prescriptions: Continued simvastatin See Rx Instructions PO DAILY Rx Instructions: 40 MG DAILY AT HS orally daily; lisinopril See Rx Instructions PO DAILY Rx Instructions: 40 MG orally daily; amlodipine [Norvasc] 10 mg tablet 10 mg PO DAILY omeprazole 40 mg capsule,delayed release(DR/EC) 40 mg PO DAILY acetaminophen 325 mg Tablet 650 mg PO Q6H PRN PRN (Reason: Pain 1-10 Or Fever >100.7) Qty: 0 0RF Discontinued ipratropium-albuterol 0.5 mg-3 mg(2.5 mg base)/3 mL Solution For Nebulization 3 ml inhalation Q4H PRN PRN (Reason: Shortness Of Breath) Qty: 0 0RF cefdinir 300 mg Capsule 300 mg PO Q12 Qty: 4 0RF oxycodone 5 mg Tablet 2.5 - 5 mg PO Q4H PRN PRN (Reason: Pain Score 4-10) Qty: 0 0RF No Action metformin 500 mg Tablet 500 mg PO BIDCM 30 Days Qty: 60 0RF tamsulosin 0.4 mg Capsule 0.8 mg PO DAILY@1730 30 Days Qty: 60 0RF finasteride 5 mg Tablet 5 mg PO DAILY 30 Days Qty: 30 0RF bupropion HCl 150 mg Tablet Extended Release 24 Hr 150 mg PO DAILY 30 Days Qty: 30 0RF magnesium chloride [Mag 64] 64 mg Tablet,Delayed Release (Dr/Ec) 128 mg PO DAILY 30 Days Qty: 60 0RF Referrals / Follow Up: Chris Brar DO [Med Staff - Active Staff] - 05/17/24 10:30 am Sean Valencia MD [Primary Care Provider] - Tere Benavidez MANAGER MATERIALS MANAGEMENT, MANAGER [employer]NA[employer]-C [Med Staff - Adv Practice Prof] - 06/14/24 12:45 pm Disposition Disposition (needs filled in before D/C Order can be placed): [facility] Charges/Coding Visit Charges Inpatient E&M: 83055 Disch Hosp >30min
[2024-03-21 16:37] LABS: Bedside Glucose 96 mg/dL (74-106)
[2024-03-21] MEDS: Tamsulosin HCl 0.4 MG Capsule PO (16:51)
== END 2024-03-21 17:00 | disposition skilled nursing facility (03) | DRG 392 ==
PROVIDERS: Admitting Provider Internal Medicine; PCP Family Medicine; Referring Provider Internal Medicine; Visit Provider Internal Medicine
DX: K52.9 Noninfective gastroenteritis and colitis, unspecified (principal); Z68.42 Body mass index [BMI] 45.0-49.9, adult; I27.20 Pulmonary hypertension, unspecified; E66.01 Morbid (severe) obesity due to excess calories; I10 Essential (primary) hypertension; F32.A Depression, unspecified; E78.5 Hyperlipidemia, unspecified; G47.33 Obstructive sleep apnea (adult) (pediatric); K21.9 Gastro-esophageal reflux disease without esophagitis; K22.70 Barrett's esophagus without dysplasia; B96.20 Unspecified Escherichia coli [E. coli] as the cause of diseases classified elsewhere; Z87.891 Personal history of nicotine dependence; N13.9 Obstructive and reflux uropathy, unspecified; R33.8 Other retention of urine; N40.1 Benign prostatic hyperplasia with lower urinary tract symptoms; R13.10 Dysphagia, unspecified; Z79.899 Other long term (current) drug therapy; Z79.84 Long term (current) use of oral hypoglycemic drugs
CPT/HCPCS: 36415; 80048; 81001; 82962; 83735; 84100; 85014; 85018; 92610; 94762; 97110; 97116; 97162; 97166; 97530; 97535; 97802; 97803; A4216

== ENCOUNTER 2024-03-21 17:05 | Inpatient (IN) | payer SELFPAY ==
[2024-03-21 17:46] VITALS: BP 136/66; PULSE 81; RESP 18; TEMP 36; O2SAT 93
[2024-03-21 18:45] VITALS: BMI 46.6
[2024-03-21 19:45] VITALS: PULSE 81; RESP 16; O2SAT 93
--- NOTE | 2024-03-21 20:10 | HP.PCM_ITS ---
HPI - General General Date of Admission: 03/21/24 Date of Service: 03/21/24 Chief Complaint: Here for rehabilitation. [facility] Narrative RISHI STRATTON, is a 73 Male who presents with followin03/01/[address] [facility] with fall, diarrhea. Weakness, unable to urinate. WBC 13, Sodium 132, K 5.1, Creatinine 9.31, BUN 146. Bladder scan showed distended bladder, ochoa inserted. CT A/P showed bilateral hydronephrosis, bilateral hydroureter 2/2 chronic bladder outlet obstruction. Acute kidney injury also 2/2 dehydration 2/2 diarrhea. Tamsulosin started. 03/06/2024 Fever, confusion, hypotension. Vancomycin, Zosyn, blood cultures, transfer to ICU. Blood culture grew pansensitive E. Coli, urine culture negative. Vancomycin, Zosyn changed to Ceftriaxone, E. Coli bacteremia 2/2 colitis. Pressors required for hypotension. 03/09/2024 Dr. Friend EGAmelia Schatzki's ring dilated, eosinophilic esophagitis, small hiatal hernia. Swallowing improved with antacids. Tranfser to RU. 03/14/2024 Admit to RU. A1c 6.8 consistent Type 2 Diabetes Mellitus. PT/OT/ST. Wellbutrin 150mg daily for depression. 03/15/2024 Metformin for Diabetes Mellitus II. 03/18/2024 Zuly Sweeney. Oxygen via nasal cannula at night, sleep study at discharge. 03/21/2024 Admit to TCU with debility, here for rehabilitation, strengthening, prior to discharge home. Plan discharge to sleep lab 03/27/2024. [facility] Medical History (Updated 03/21/24 @ 20:[address] Donald Mar MD) Barretts esophagus BPH (benign prostatic hyperplasia) Depression Diabetes mellitus, type 2 Diverticulosis History of colon polyps Hypercholesterolemia Hypertension Morbid obesity Osteoarthritis Prostatic enlargement Tobacco dependence in remission Venous insufficiency Home Medications amlodipine 10 mg tablet (Norvasc) 10 mg PO DAILY BLOOD PRESSURE 03/06/24 [History Last Taken 03/21/24] lisinopril See Rx Instructions PO DAILY BLOOD PRESSURE 03/06/24 [History Last Taken 03/21/24] metformin 1,000 mg PO BID BLOOD SUGAR 03/06/24 [History Last Taken 03/21/24] omeprazole 40 mg capsule,delayed release 40 mg PO DAILY GERD 03/06/24 [History Last Taken 03/21/24] simvastatin See Rx Instructions PO DAILY LOWERS CHOLESTEROL 03/06/24 [History Last Taken 03/20/24] acetaminophen 325 mg tablet 650 mg (2 x 325 mg) PO Q6H PRN PRN Pain 1-10 Or Fever >100.7 #0 tabs 03/14/24 [Rx Last Taken Unknown] finasteride 5 mg tablet 5 mg PO DAILY retention #0 tabs 03/14/24 [Rx Last Taken 03/21/24] tamsulosin 0.4 mg capsule 0.4 mg PO DAILY@1730 retention #0 caps 03/14/24 [Rx Last Taken 03/13/24] Arthritis Pain Compound 1 click topical BID Pain 03/21/24 [History Last Taken 03/21/24 08:45] bupropion HCl 150 mg 24 hr tablet, extended release 150 mg PO DAILY Mood #1 TAB 03/21/24 [Rx Last Taken 03/21/24] glimepiride 2 mg tablet 2 mg PO BREAKFAST Diabetes #1 TAB 03/21/24 [Rx Last Taken 03/21/24] magnesium chloride 64 mg (magnesium chloride) tablet,delayed release (Mag 64) 128 mg (2 x 64 mg) PO DAILY Supplement #1 TAB 03/21/24 [Rx Last Taken Unknown] sennosides 8.6 mg-docusate sodium 50 mg tablet (Stool Softener-Stimulant Laxative) 2 tab PO BID Constipation #1 TAB 03/21/24 [Rx Last Taken 03/21/24 08:15] Allergy/AdvReac Type Severity Reaction Status Date / Time No Known Allergies Allergy Verified 03/06/24 09:44 Family History Brother , due to a boating accident No problems noted. Brother No problems noted. 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 Smoking Status: Former smoker Tobacco: How many years used: 10 how long ago did patient quit smoking: He quit smoking in 1987 alcohol intake: current alcohol intake frequency: holidays/special occasions only substance use type: does not use ROS Constitutional Constitutional: Denies chills, fever(s) or weight gain ENT HEENT: Denies headache(s), nasal congestion or nasal discharge Cardiovascular Cardiovascular: Denies chest pain or palpitations Respiratory/Chest Respiratory/Chest: Denies cough, excessive phlegm production or shortness of breath with exertion Gastrointestinal Gastrointestinal: Denies abdominal pain, nausea or vomiting Genitourinary Genitourinary: Denies dysuria Musculoskeletal Musculoskeletal: Denies joint pain or joint swelling Integumentary Integumentary: Denies rash or wounds Neurologic Neurologic: Denies focal weakness, numbness or tingling Psychiatric Psychiatric: Denies anxiety, auditory hallucinations, depression, homicidal id eation or suicidal ideation Vital Signs Vital Signs Vital Signs: 03/21/24 17:46 Temperature 96.8 F L Temperature Source Temporal Pulse Rate 81 Respiratory Rate 18 Blood Pressure 136/66 H Blood Pressure Mean 89 Blood Pressure Source Monitor Blood Pressure Position Sitting Blood Pressure Location Left Arm Pulse Ox 93 Oxygen Delivery Method Room Air Weight Weight: 143.199 kg Body Mass Index (BMI) 46.6 Physical Exam Const alert General Appearance: cooperative HEENT normocephalic Eyes PERRL and EOMs intact bilaterally Neck supple, no JVD and no carotid bruits Resp normal respiratory effort, normal air movement and clear to auscultation bilaterally Cardio regular rate and regular rhythm GI normal to inspection, nondistended, normoactive bowel sounds, non-tender and non-distended Extremity normal capillary refill Extremity Narrative: Left upper extremity PICC line. General Extremity: Negative for edema Skin no rashes or lesions noted General Skin Exam: no breakdown Psych affect normal Appearance: appropriate Assessment & Plan Assessment/Plan (1) Debility: (2) Acute kidney injury: (3) Bladder outlet obstruction: (4) Bilateral hydronephrosis: (5) Septic shock: (6) Bacteremia: (7) Colitis: (8) Essential (primary) hypertension: (9) Hyperlipidemia: (10) BPH (benign prostatic hyperplasia): QUALIFIERS: Lower urinary tract symptom detail: urinary retention Lower urinary tract symptom presence: symptoms present Qualified Code(s): N40.1 - Benign prostatic hyperplasia with lower urinary tract symptoms; R33.8 - Other retention of urine (11) Morbid obesity: (12) GERD (gastroesophageal reflux disease): (13) Depression: QUALIFIERS: Depression Type: persistent depressive disorder Quali fied Code(s): F34.1 - Dysthymic disorder (14) Type 2 diabetes mellitus with hyperglycemia: PLAN: Plan 73 year old male with below past medical history hospitalized for acute kidney injury 2/2 bladder outlet obstruction/dehydration, complicated by septic shock 2/2 e. coli bacteremia from colitis, new onset Diabetes Mellitus II, admitted to for rehabilitation, transferred to TCU with debility, here for rehabilitation, strengthening, prior to discharge home alone. * Debility - PT/OT. * Pain - Tylenol 650mg q6 prn, Arthritis compound 1 click topical bid. * Bowel - senna/colace 2 tablets bid. * Adult immunization - Administer pneumonia vaccine, covid vaccine, flu vaccine as appropriate. * DVT prophylaxis - Hold, ambulates. * Hypertension - Lisinopril 40mg daily, Amlodipine 10mg daily. * Hyperlipidemia - Atorvastatin 20mg qhs. * Depression - Bupropion XL 150mg daily, stable chronic longterm use, GDR not recommended. * BPH - Finasteride 5mg daily, Tamsulosin 0.4mg daily, prompted voiding. * Diabetes Mellitus II - Metformin 1000mg bidcm, Glimepiride 2mg daily. * Hypomagnesemia - Magnesium chloride 128mg daily. * GERD - Pantoprazole 40mg daily. * Sleep apnea - Discharge to sleep lab 03/27/2024.
[2024-03-21] MEDS: Senna/Docusate Sodium 1 Tablet 2 TABLET PO (21:21)
[2024-03-21] MEDS: Atorvastatin Calcium 20 MG Tablet PO (21:21)
[2024-03-21] MEDS: 0.9% Saline Lock 10 ML Syringe IV (21:23)
[2024-03-21 21:33] LABS: Bedside Glucose 96 mg/dL (74-106)
--- NOTE | 2024-03-22 04:07 | NURSING ---
Pt bladder scanned and straight cathed x2 this shift, states he has not urinated by himself since his ochoa was removed on 03/18/24 and continues to have no urge to urinate. Pt states he has attempted multiple times to urinate with ineffective results. Pt does not tolerate straight cathing well, he becomes very distressed and anxious. Emotional support and distraction attempted, pt appreciative. Written communication left for Dr. Mar.
[2024-03-22 06:16] LABS: Absolute Neutrophil Count 2.3 X10^3/uL (2.0-7.7); Basophil# 0.06 X10^3/uL; Basophil% 1.4 % (0-1); Eosinophils% 4.8 % (0-5); Hematocrit 37.1 % (40-54); Hemoglobin 11.6 g/dL (13.0-16.5); Lymphocyte % 26.3 % (19-41); Mean Corp Hgb Conc 31.3 g/dL (32-36); Mean Corpuscular Hgb 27.9 pg (27.0-32.0); Mean Corpuscular Volume 89.2 fL (80-94); Mean Platelet Vol. 9.2 fl (6.2-12.0); Monocyte# 0.46 X10^3/uL; NRBC Flagged by Analyzer 0 % (0-5); Neutrophil # 2.33 X10^3/uL (2.7-7.7); Neutrophil % 55.5 % (47-70); Platelet Count 229 K/mm3 (150-450); RBC Distribution Width CV 15.7 % (11.6-14.6); RBC Distribution Width SD 50.6 fl (35.1-43.9); Red Blood Count 4.16 M/mm3 (4.6-6.2); White Blood Count 4.2 K/mm3 (4.4-11.0)
[2024-03-22 06:38] LABS: Bedside Glucose 111 mg/dL (74-106)
[2024-03-22 06:48] LABS: Anion Gap 5 (5-15); BUN 17 mg/dL (7-18); BUN/Creat Ratio 19.1 RATIO (10-20); Calcium,Total 8.6 mg/dL (8.5-10.1); Chloride 105 mmol/L (98-107); Creatinine, Serum 0.89 mg/dL (0.70-1.30); EST Glomerular Filtration Rate 90 mL/min (>60); Est Glom Filt Rate - Afr Amer 109 mL/min (>60); Estimated Creatinine Clearance 107.35 ml/min; Glucose 114 mg/dL (74-106); Potassium 4.1 mmol/L (3.5-5.1); Sodium Level 138 mmol/L (136-145)
[2024-03-22] MEDS: Arthritis Pain Compound 60 CLICK TUBE TOPICAL (08:32)
[2024-03-22] MEDS: Glimepiride 2 MG Tablet PO (08:32)
[2024-03-22] MEDS: metFORMIN HCl 1,000 MG Tablet 1000 MG PO ×2 (08:32→17:23)
[2024-03-22] MEDS: Magnesium Chloride 64 MG Delay Rel.Tablet 128 MG PO (08:32)
[2024-03-22] MEDS: amLODIPine 10 MG Tablet PO (08:32)
[2024-03-22] MEDS: Pantoprazole Sodium 40 MG Tablet PO (08:33)
[2024-03-22] MEDS: Finasteride 5 MG Tablet PO (08:33)
[2024-03-22] MEDS: Lisinopril 40 MG Tablet PO (08:33)
[2024-03-22] MEDS: Senna/Docusate Sodium 1 Tablet 2 TABLET PO (08:33)
[2024-03-22] MEDS: buPROPion (XL) 150 MG TABLET.XL PO (08:35)
[2024-03-22] MEDS: Tuberculin,Purif.prot.deriv. 50 TU/ML Vial 0.1 ML ID (11:04)
[2024-03-22 11:07] LABS: Bedside Glucose 126 mg/dL (74-106)
--- NOTE | 2024-03-22 11:28 | NURSING ---
Received check for payment for stay on TCU, this RN delivered to the parimutuel cashier's office, receipt given to patient.
--- NOTE | 2024-03-22 14:05 | CASEMGMT ---
Social Work SW met with pt to complete initial assessment. SW introduced self and role of SW and pt is willing to speak with SW. Pt confirmed contacts are his daughters and that they live out of state and while supportive, they are unable to assist pt at home. Pt elected to come to the TCU private pay and states plan is to discharge to the sleep lab on Tuesday 03/27 and will go home alone after this appointment. Sw will continue to follow for d/c planning. TERESA Méndez
--- NOTE | 2024-03-22 14:25 | NURSING ---
Lining Mechanic Note; Activity Asset: Ramiro Espinosa is independent in his choice of daily activities and prefers to do them in his room. He has a smartphone and will use a tablet. He watches tv, reads and will visit with family. He did say he welcomes visit from the capital markets specialist but not necessary. Staff will remind him of weekly activities and respect his right to say no.
[2024-03-22 16:00] VITALS: BP 123/66; PULSE 75; RESP 18; TEMP 36.1; O2SAT 98
[2024-03-22] MEDS: Tamsulosin HCl 0.4 MG Capsule 0.8 MG PO (17:24)
[2024-03-22 17:25] LABS: Bedside Glucose 84 mg/dL (74-106)
--- NOTE | 2024-03-22 19:08 | PHA.CONS_ITS ---
Documented by User: Shalom Cobb 03/22/24 19:20 TCU RX Drug Regimen Review Subjective/Objective Subjective/Objective: Subjective: TCU admission note. 73 year old male with below past medical history hospitalized for acute kidney injury 2/2 bladder outlet obstruction/d ehydration, complicated by septic shock 2/2 e. coli bacteremia from colitis, new onset Diabetes Mellitus II, admitted to for rehabilitation, transferred to TCU with debility, here for rehabilitation, strengthening, prior to discharge home alone. Objective: Allergies No Known Allergies Allergy (Verified 03/06/24 09:44) Current Medications Generic Name Dose Route Start Last Admin Trade Name Freq PRN Reason Stop Dose Admin Acetaminophen 650 mg 03/21/24 17:53 Acetaminophen 325 Mg Tablet PO Q6H PRN PRN Pain 1-10 Or Fever >100.7 Amlodipine Besylate 10 mg 03/22/24 10:00 03/22/24 08:32 Amlodipine 10 Mg Tablet PO 10 mg DAILY INDIGO Administration Protocol Atorvastatin Calcium 20 mg 03/21/24 22:00 03/21/24 21:21 Atorvastatin Calcium 20 Mg Tablet PO 20 mg QHS INDIGO Administration Bupropion HCl 150 mg 03/22/24 10:00 03/22/24 08:35 Bupropion (Xl) 150 Mg Tablet.Xl PO 150 mg DAILY INDIGO Administration Compound Med 1 click 03/21/24 22:00 03/22/24 08:32 Arthritis Pain Compound 60 Click Tube TOPICAL 1 click BID INDIGO Administration Finasteride 5 mg 03/22/24 10:00 03/22/24 08:33 Finasteride 5 Mg Tablet PO 5 mg DAILY INDIGO Administration Glimepiride 2 mg 03/22/24 08:00 03/22/24 08:32 Glimepiride 2 Mg Tablet PO 2 mg BREAKFAST INDIGO Administration Lisinopril 40 mg 03/22/24 10:00 03/22/24 08:33 Lisinopril 40 Mg Tablet PO 40 mg DAILY INDIGO Administration Magnesium Chloride 128 mg 03/22/24 10:00 03/22/24 08:32 Magnesium Chloride 64 Mg Delay Rel.Tablet PO 128 mg DAILY INDIGO Administration Metformin HCl 1,000 mg 03/22/24 08:00 03/22/24 17:23 Metformin Hcl 1,000 Mg Tablet PO 1,000 mg BIDCM INDIGO Administration Pantoprazole Sodium 40 mg 03/22/24 10:00 03/22/24 08:33 Pantoprazole Sodium 40 Mg Tablet PO 40 mg DAILY INDIGO Administration Senna/Docusate Sodium 2 tablet 03/21/24 22:00 03/22/24 08:33 Senna/Docusate Sodium 1 Tablet PO 2 tablet BID INDIGO Administration Sodium Chloride 10 - 40 ml 03/21/24 17:50 0.9 % Nacl (Sterile) Posiflush 10 Ml IV UD PRN Port access or dressing change Sodium Chloride 10 - 40 ml 03/21/24 17:50 03/21/24 21:23 0.9% Saline Lock 10 Ml Syringe IV 20 ml UD PRN Administration Closed End PICC Flush Tamsulosin HCl 0.8 mg 03/22/24 17:30 03/22/24 17:24 Tamsulosin Hcl 0.4 Mg Capsule PO 0.8 mg DAILY@1730 INDIGO Administration Tuberculin PPD 0.1 ml 03/29/24 10:00 Tuberculin,Purif.Prot.Deriv. 50 Tu/Ml Vial ID 03/29/24 10:01 X1 ONE Problem List (Updated 03/22/24 @ 00:02 by Mena Salas) Type 2 diabetes mellitus with hyperglycemia (Acute) GERD (gastroesophageal reflux disease) (Acute) Morbid obesity (Acute) Hyperlipidemia (Acute) Essential (primary) hypertension (Acute) Colitis (Acute) Bacteremia (Acute) Bilateral hydronephrosis (Acute) Bladder outlet obstruction (Acute) Acute kidney injury (Acute) Depression (Chronic) Debility (Acute) Vital Signs Temp Pulse Resp BP Pulse Ox O2 Del Method O2 Flow Rate 96.9 F L 75 18 123/66 H 98 Room Air 1 03/22/24 16:00 03/22/24 16:00 03/22/24 16:00 03/22/24 16:00 03/22/24 16:00 03/22/24 16:00 03/22/24 12:23 Oxygen Flow Rate (L/min) 1 Oxygen Delivery Method Room Air Weight: 143.199 kg Body Mass Index (BMI) 46.6 Sodium 138 mmol/L (136-145) 03/22/24 05:37 Potassium 4.1 mmol/L (3.5-5.1) 03/22/24 05:37 Chloride 105 mmol/L (98-107) 03/22/24 05:37 Carbon Dioxide 28.0 mmol/L (21.0-32.0) 03/22/24 05:37 Anion Gap 5 (5-15) 03/22/24 05:37 BUN 17 mg/dL (7-18) 03/22/24 05:37 Creatinine 0.89 mg/dL (0.70-1.30) 03/22/24 05:37 Est GFR (MDRD) Af Amer 109 mL/min (>60) 03/22/24 05:37 Est GFR (MDRD) Non-Af 90 mL/min (>60) 03/22/24 05:37 BUN/Creatinine Ratio 19.1 RATIO (10-20) 03/22/24 05:37 Glucose 114 mg/dL (74-106) H 03/22/24 05:37 Assessment/Plan: 1. Pain: acetaminophen 650 mg PO Q6H PRN pain, arthritis pain compound 1 click topically BID. The patient has not required any PRN doses of acetaminophen so far this admission.Please continue to monitor pain levels and LFTs (AST/ALT = 83/88 U/L on 03/10/24). 2. Bowel: senna/docusate 2 tablets PO BID. The patient's last bowel movement was 03/20/24. Please continue to monitor for bowel movements, diarrhea and constipation. 3. Hypertension: amlodipine 10 mg PO daily, lisinopril 40 mg PO daily. Please continue to monitor blood pressures (recent range = 107-136/45-75 mmHg), for lower extremity edema, renal function (serum creatinine = 0.89 mg/dL with cre atinine clearance ~ 107 mL/min on 03/22/24), potassium levels (K = 4.1 mmol/L on 03/22/24), for dry cough, and for angioedema. 4. Hyperlipidemia: atorvastatin 20 mg PO QHS. Please continue to monitor lipid levels (no recent lipid levels documented), LFTs (AST/ALT = 83/88 U/L on 03/10/24) and for myalgias. Please consider obtaining a lipid panel as the patient does not have recently documented lipid levels. 5. Diabetes Mellitus II: metformin 1000 mg PO BID with meals, glimepiride 2 mg PO daily. Please continue to monitor blood glucose levels (recent range = 84-126 mg/dL), hemoglobin A1C levels (A1C = 6.8% on 03/06/24), renal function (serum creatinine = 0.89 mg/dL with creatinine clearance ~ 107 mL/min and estimated GFR = 90 mL/min on 03/22/24), B12 levels (no recent B12 level documented), and for GI distress with metformin administration. Please consider ordering a vitamin B12 level if clinically indicated d/t the patient being on metformin. 6. BPH: finasteride 5 mg PO daily, tamsulosin 0.4 mg PO daily. Please continue to monitor for urinary retention, urine stream, blood pressures (recent range = 107-136/45-75 mmHg), and for s/s of orthostasis. 7. Hypomagnesemia: magnesium chloride 128 mg PO daily. Please continue to monitor magnesium levels (Mg = 1.5 mg/dL on 03/20/24). 8. GERD: pantoprazole 40 mg PO daily. Please continue to monitor for s/s of GERD, for diarrhea that could indicate clostridium difficile infection, and for s/s of bone resorption such as fractures. Assessment/Plan for indications treated with psychotropic medications: Depression: bupropion XL 150 mg PO daily. Please see provider note regarding stable chronic long-term use GDR not recommended. Please continue to monitor for depression, SI, sweating, nausea, vomiting, constipation, dry mouth, agitation, insomnia and tremor as well as for seizures. Medical chart and medication regimen reviewed. The following medication irregularities or issues were identified: 1. Hyperlipidemia: atorvastatin 20 mg PO QHS. Please consider obtaining a lipid panel as the patient does not have recently documented lipid levels. 2. Diabetes Mellitus II: metformin 1000 mg PO BID with meals, glimepiride 2 mg PO daily. Please consider ordering a vitamin B12 level if clinically indicated d/t the patient being on metformin. Date Date of Note:: 03/22/24 Documented by User: Dr. Donald Mar MD 03/23/24 09:45 TCU RX Drug Regimen Review Provider Comments Provider responsibility Provider Comments to Recommendations by Pharmacy: Agree
[2024-03-22] MEDS: Atorvastatin Calcium 20 MG Tablet PO (21:23)
[2024-03-22 21:24] LABS: Bedside Glucose 96 mg/dL (74-106)
[2024-03-23 06:50] LABS: Bedside Glucose 81 mg/dL (74-106)
[2024-03-23] MEDS: buPROPion (XL) 150 MG TABLET.XL PO (08:41)
[2024-03-23] MEDS: Lisinopril 40 MG Tablet PO (08:41)
[2024-03-23] MEDS: Finasteride 5 MG Tablet PO (08:41)
[2024-03-23] MEDS: amLODIPine 10 MG Tablet PO (08:41)
[2024-03-23] MEDS: Magnesium Chloride 64 MG Delay Rel.Tablet 128 MG PO (08:41)
[2024-03-23] MEDS: Glimepiride 2 MG Tablet PO (08:41)
[2024-03-23] MEDS: Pantoprazole Sodium 40 MG Tablet PO (08:41)
[2024-03-23] MEDS: metFORMIN HCl 1,000 MG Tablet 1000 MG PO (08:41)
[2024-03-23 09:01] VITALS: BP 124/65; PULSE 85
[2024-03-23 11:26] LABS: Bedside Glucose 137 mg/dL (74-106)
[2024-03-23] MEDS: 0.9 % NaCl (Sterile) Posiflush 10 mL IV (13:27)
[2024-03-23 14:21] VITALS: BP 107/60; PULSE 77; RESP 16; TEMP 36.1; O2SAT 94
[2024-03-23 16:54] LABS: Bedside Glucose 65 mg/dL (74-106)
[2024-03-23 17:16] LABS: Bedside Glucose 75 mg/dL (74-106)
[2024-03-23] MEDS: Tamsulosin HCl 0.4 MG Capsule 0.8 MG PO (17:49)
[2024-03-23 18:20] LABS: Bedside Glucose 128 mg/dL (74-106)
[2024-03-23] MEDS: Atorvastatin Calcium 20 MG Tablet PO (21:30)
[2024-03-23 21:41] LABS: Bedside Glucose 98 mg/dL (74-106)
[2024-03-24 06:38] LABS: Cholesterol 128 mg/dL (200); High Density Lipoprotein 36 mg/dL; Triglycerides 112 mg/dL; Very Low Density Lipoprotein 22 mg/dL (5-40)
[2024-03-24 06:47] LABS: Bedside Glucose 94 mg/dL (74-106)
[2024-03-24] MEDS: amLODIPine 10 MG Tablet PO (09:26)
[2024-03-24] MEDS: Pantoprazole Sodium 40 MG Tablet PO (09:26)
[2024-03-24] MEDS: Finasteride 5 MG Tablet PO (09:26)
[2024-03-24] MEDS: Lisinopril 40 MG Tablet PO (09:26)
[2024-03-24] MEDS: Magnesium Chloride 64 MG Delay Rel.Tablet 128 MG PO (09:26)
[2024-03-24] MEDS: metFORMIN HCl 1,000 MG Tablet 1000 MG PO (09:26)
[2024-03-24] MEDS: buPROPion (XL) 150 MG TABLET.XL PO (09:29)
[2024-03-24 11:26] LABS: Bedside Glucose 120 mg/dL (74-106)
[2024-03-24] MEDS: 0.9 % NaCl (Sterile) Posiflush 10 mL IV (12:14)
[2024-03-24 15:21] VITALS: BP 103/63; PULSE 76; RESP 18; TEMP 35.9; O2SAT 93
[2024-03-24 16:40] LABS: Bedside Glucose 111 mg/dL (74-106)
[2024-03-24] MEDS: metFORMIN HCl 500 MG Tablet PO (17:48)
[2024-03-24] MEDS: Tamsulosin HCl 0.4 MG Capsule 0.8 MG PO (17:48)
[2024-03-24] MEDS: Atorvastatin Calcium 20 MG Tablet PO (20:22)
[2024-03-24 21:31] LABS: Bedside Glucose 127 mg/dL (74-106)
[2024-03-25 06:39] LABS: Bedside Glucose 103 mg/dL (74-106)
--- NOTE | 2024-03-25 08:19 | DS.PCM_ITS ---
Providers Date of Admission: 03/21/24 Primary Care Physician: Dr. Sean Valencia MD Reason For Visit: DEBILITY Diagnosis Discharge Diagnosis (1) Debility: Status: Acute Code(s): R53.81 - Other malaise (2) Acute kidney injury: Status: Acute Code(s): N17.9 - Acute kidney failure, unspecified (3) Bladder outlet obstruction: Status: Acute Code(s): N32.0 - Bladder-neck obstruction (4) Bilateral hydronephrosis: Status: Acute Code(s): N13.30 - Unspecified hydronephrosis (5) Septic shock: Status: Resolved Code(s): A41.9 - Sepsis, unspecified organism; R65.21 - Severe sepsis with septic shock (6) Bacteremia: Status: Acute Code(s): R78.81 - Bacteremia (7) Colitis: Status: Acute Code(s): K52.9 - Noninfective gastroenteritis and colitis, unspecified (8) Essential (primary) hypertension: Status: Acute Code(s): I10 - Essential (primary) hypertension (9) Hyperlipidemia: Status: Acute Code(s): E78.5 - Hyperlipidemia, unspecified (10) BPH (benign prostatic hyperplasia): Status: Inactive Code(s): N40.0 - Benign prostatic hyperplasia without lower urinary tract symptoms Qualifiers: Lower urinary tract symptom presence: symptoms present Lower urinary tract symptom detail: urinary retention Qualified Code(s): N40.1 - Benign prostatic hyperplasia with lower urinary tract symptoms; R33.8 - Other retention of urine (11) Morbid obesity: Status: Acute Code(s): E66.01 - Morbid (severe) obesity due to excess calories (12) GERD (gastroesophageal reflux disease): Status: Acute Code(s): K21.9 - Gastro-esophageal reflux disease without esophagitis (13) Depression: Status: Chronic Code(s): F32.A - Depression, unspecified Qualifiers: Depression Type: persistent depressive disorder Qualified Code(s): F34.1 - Dysthymic disorder (14) Type 2 diabetes mellitus with hyperglycemia: Status: Acute Code(s): E11.65 - Type 2 diabetes mellitus with hyperglycemia Plan 73 year old male with below past medical history hospitalized for acute kidney injury 2/2 bladder outlet obstruction/dehydration, complicated by septic shock 2/2 e. coli bacteremia from colitis, new onset Diabetes Mellitus II, admitted to for rehabilitation, transferred to TCU with debility, here for rehabilitatio n, strengthening, prior to discharge home alone. * Debility - PT/OT. * Pain - Tylenol 650mg q6 prn, Arthritis compound 1 click topical bid. * Bowel - senna/colace 2 tablets bid. * Adult immunization - Administer pneumonia vaccine, covid vaccine, flu vaccine as appropriate. * DVT prophylaxis - Hold, ambulates. * Hypertension - Lisinopril 40mg daily, Amlodipine 10mg daily. * Hyperlipidemia - Atorvastatin 20mg qhs. 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 * BPH - Finasteride 5mg daily, Tamsulosin 0.4mg daily, prompted voiding. * Diabetes Mellitus II - Metformin 1000mg bidcm, Glimepiride 2mg daily. * Hypomagnesemia - Magnesium chloride 128mg daily. * GERD - Pantoprazole 40mg daily. * Sleep apnea - Discharge to sleep lab 03/27/2024. Medications at Discharge Home Medications amlodipine 10 mg tablet (Norvasc) 10 mg PO DAILY BLOOD PRESSURE 03/06/24 lisinopril See Rx Instructions PO DAILY BLOOD PRESSURE 03/06/24 omeprazole 40 mg capsule,delayed release 40 mg PO DAILY GERD 03/06/24 simvastatin See Rx Instructions PO DAILY LOWERS CHOLESTEROL 03/06/24 acetaminophen 325 mg tablet 650 mg (2 x 325 mg) PO Q6H PRN PRN Pain 1-10 Or Fever >100.7 #0 tabs 03/14/24 bupropion HCl 150 mg 24 hr tablet, extended release 150 mg PO DAILY 30 days #30 tabs 03/25/24 finasteride 5 mg tablet 5 mg PO DAILY 30 days #30 tabs 03/25/24 magnesium chloride 64 mg (magnesium chloride) tablet,delayed release (Mag 64) 128 mg (2 x 64 mg) PO DAILY 30 days #60 tabs 03/25/24 metformin 500 mg tablet 500 mg PO BIDCM 30 days #60 tabs 03/25/24 tamsulosin 0.4 mg capsule 0.8 mg (2 x 0.4 mg) PO DAILY@1730 30 days #60 caps 03/25/24 Hospital Course Operations None Procedures None Summary of Care Provided Minutes Spent on Discharge: 35 Hospital Course: 73 year old male with below past medical history hospitalized for acute kidney injury 2/2 bladder outlet obstruction/dehydration, complicated by septic shock 2/2 e. coli bacteremia from colitis, new onset Diabetes Mellitus II, admitted to for rehabilitation, transferred to TCU with debility, here for rehabilitation, strengthening, prior to discharge home alone. Discharge to sleep lab 03/27/2024, then home alone. Physical Exam Const alert General Appearance: cooperative HEENT normocephalic Eyes PERRL and EOMs intact bilaterally Neck supple, no JVD and no carotid bruits Resp normal respiratory effort, normal air movement and clear to auscultation bilaterally Cardio regular rate and regular rhythm GI normal to inspection, nondistended, normoactive bowel sounds, non-tender and non-distended Bladder / Kidney Exam: catheter in place urethral Extremity normal capillary refill General Extremity: Negative for edema Skin no rashes or lesions noted General Skin Exam: no breakdown Psych affect normal Appearance: appropriate Weight / BMI Weight Weight: 143.199 kg Body Mass Index (BMI) 46.6 ABG / Lab / Microbiology Data 03/22/24 05:37 03/22/24 05:37 Laboratory: Laboratory Results - last 24 hr 03/24/24 11:02: POC Glucose 120 H 03/24/24 16:17: POC Glucose 111 H 03/24/24 21:07: POC Glucose 127 H 03/25/24 06:18: POC Glucose 103 D/C Instructions Discharge Diet: No restrictions Discharge Activity: Return to Normal Activity, May Shower and Use Walker Weight Bearing Status: Weight bearing as tolerated Call your doctor if you observe: Fever of 101 or Higher, Inability to urinate, Inability to have a bowel movement, Shortness of breath, Dizziness, Fainting spells, Swelling in the ankles, Chest pain and Uncontrolled pain Additional Instructions: Discharge to sleep lab 03/27/2024, then home alone. Please Follow Up With: Jim Alex MD When: 2 weeks. Meaningful Use Info Meaningful Use Meaningful Use Diagnoses (Choose all that apply): None applicable Ischemic Stroke Statin Dosing Therapy Reference: STATIN DOSE THERAPY REFERENCE: * Patients > 75 years receive moderate or high dose statin therapy. * Patients 75 years or YOUNGER should receive HIGH intensity statin dose unless contraindicated. You will be required to document reason for non-treatment if statin daily dose does not meet guidelines. HIGH DOSE STATIN THERAPY DAILY Atorvastatin > than or = to 40 mg Rosuvastatin > than or = to 20 mg Amlodipine + Atorvastatin > than or = to 2.5/40 mg Ezetimibe + Simvastatin 10/80 mg Simvastatin 80mg Discharge Plan Admission Admit Date/Time: 03/21/24 17:05 Primary Reason for Your Visit: Debility. Attending Provider: Donald Mar Chi Primary Care Provider: Sean Valencia Instructions Additional Instructions / Restrictions: Discharge to sleep lab 03/27/2024, then home alone. Discharge Orders/Prescriptions Prescriptions: New metformin 500 mg Tablet 500 mg PO BIDCM 30 Days Qty: 60 0RF tamsulosin 0.4 mg Capsule 0.8 mg PO DAILY@1730 30 Days Qty: 60 0RF finasteride 5 mg Tablet 5 mg PO DAILY 30 Days Qty: 30 0RF bupropion HCl 150 mg Tablet Extended Release 24 Hr 150 mg PO DAILY 30 Days Qty: 30 0RF magnesium chloride [Mag 64] 64 mg Tablet,Delayed Release (Dr/Ec) 128 mg PO DAILY 30 Days Qty: 60 0RF Continued simvastatin See Rx Instructions PO DAILY Rx Instructions: 40 MG DAILY AT HS orally daily; lisinopril See Rx Instructions PO DAILY Rx Instructions: 40 MG orally daily; amlodipine [Norvasc] 10 mg tablet 10 mg PO DAILY omeprazole 40 mg capsule,delayed release(DR/EC) 40 mg PO DAILY Discontinued metformin 1,000 mg PO BID tamsulosin 0.4 mg Capsule 0.4 mg PO DAILY@1730 Qty: 0 0RF finasteride 5 mg Tablet 5 mg PO DAILY Qty: 0 0RF sennosides-docusate sodium [Stool Softener-Stimulant Laxat] 8.6-50 mg Tablet 2 tab PO BID Qty: 1 0RF glimepiride 2 mg Tablet 2 mg PO BREAKFAST Qty: 1 0RF bupropion HCl 150 mg Tablet Extended Release 24 Hr 150 mg PO DAILY Qty: 1 0RF magnesium chloride [Mag 64] 64 mg Tablet,Delayed Release (Dr/Ec) 128 mg PO DAILY Qty: 1 0RF Arthritis Pain Compound 1 click topical BID No Action acetaminophen 325 mg Tablet 650 mg PO Q6H PRN PRN (Reason: Pain 1-10 Or Fever >100.7) Qty: 0 0RF Referrals / Follow Up: Sean Valencia MD [Primary Care Provider] - Disposition Disposition (needs filled in before D/C Order can be placed): Home, Self Care
[2024-03-25] MEDS: Finasteride 5 MG Tablet PO (09:21)
[2024-03-25] MEDS: amLODIPine 10 MG Tablet PO (09:21)
[2024-03-25] MEDS: Pantoprazole Sodium 40 MG Tablet PO (09:21)
[2024-03-25] MEDS: metFORMIN HCl 500 MG Tablet PO ×2 (09:21→18:19)
[2024-03-25] MEDS: Magnesium Chloride 64 MG Delay Rel.Tablet 128 MG PO (09:21)
[2024-03-25] MEDS: Arthritis Pain Compound 60 CLICK TUBE TOPICAL (09:21)
[2024-03-25] MEDS: buPROPion (XL) 150 MG TABLET.XL PO (09:22)
[2024-03-25] MEDS: Lisinopril 40 MG Tablet PO (09:22)
[2024-03-25 11:31] LABS: Bedside Glucose 92 mg/dL (74-106)
--- NOTE | 2024-03-25 11:46 | PCM.CONS.U ---
HPI Consult Data Date of Consult: 03/25/24 HPI Narrative Reason for Consultation: urinary retention HPI Narrative: RISHI STRATTON, is a 73 M who presents to transitional care unit for rehab and improvement has a history very large prostate obstruction and urinary retention and bilateral hydronephrosis. I'll speak with the patient but I think the he's can eventually need surgery for an a large prostate will discussed and robotic simple prostatectomy we concern is put him on medical therapy for retention of urine but with such a large prostate think of surgical intervention will be necessary I would to get the catheter for avoiding trial. Unlikely would be [facility] Medical History (Updated 03/22/24 @ 00:02 by Background Maritza) Barretts esophagus BPH (benign prostatic hyperplasia) Depression Diabetes mellitus, type 2 Diverticulosis History of colon polyps Hypercholesterolemia Hypertension Morbid obesity Osteoarthritis Prostatic enlargement Tobacco dependence in remission Venous insufficiency Home Medications amlodipine 10 mg tablet (Norvasc) 10 mg PO DAILY BLOOD PRESSURE 03/06/24 [History Last Taken 03/21/24] lisinopril See Rx Instructions PO DAILY BLOOD PRESSURE 03/06/24 [History Last Taken 03/21/24] omeprazole 40 mg capsule,delayed release 40 mg PO DAILY GERD 03/06/24 [History Last Taken 03/21/24] simvastatin See Rx Instructions PO DAILY LOWERS CHOLESTEROL 03/06/24 [History Last Taken 03/20/24] acetaminophen 325 mg tablet 650 mg (2 x 325 mg) PO Q6H PRN PRN Pain 1-10 Or Fever >100.7 #0 tabs 03/14/24 [Rx Last Taken Unknown] bupropion HCl 150 mg 24 hr tablet, extended release 150 mg PO DAILY 30 days #30 tabs 03/25/24 [Rx Last Taken Unknown] finasteride 5 mg tablet 5 mg PO DAILY 30 days #30 tabs 03/25/24 [Rx Last Taken Unknown] magnesium chloride 64 mg (magnesium chloride) tablet,delayed release (Mag 64) 128 mg (2 x 64 mg) PO DAILY 30 days #60 tabs 03/25/24 [Rx Last Taken Unknown] metformin 500 mg tablet 500 mg PO BIDCM 30 days #60 tabs 03/25/24 [Rx Last Taken Unknown] tamsulosin 0.4 mg capsule 0.8 mg (2 x 0.4 mg) PO DAILY@1730 30 days #60 caps 03/25/24 [Rx Last Taken Unknown] Allergy/AdvReac Type Severity Reaction Status Date / Time No Known Allergies Allergy Verified 03/06/24 09:44 Family History Brother , due to a boating accident No problems noted. Brother No problems noted. 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
--- NOTE | 2024-03-25 11:48 | CASEMGMT ---
Addendum entered by Rowan Guzman 03/25/24 16:50: Social Work Dgt requesting [facility] for [facility] care and PT/OT for home safety assessment and followup if needed. Dgt also requesting [facility] for pt safety and to prevent falls at home. Nay Guzman [facility] Addendum entered by Rowan Guzman 03/25/24 16:41: Social Work Peer to Peer completed and denial of SNF stay upheld. Pt dgt notified. Nursing made aware of pt's dgt's concerns regarding catheter. Nursing spoke with physician and updated Lynette on situation. See nurses notes. Per nursing, Sleep Study changed to 03/28 and pt and dgt agreeable to this and to discharge on 03/28 from TCU to sleep lab and then home on Monday. DEVAN spoke with pt's dgt Lynette who confirms she received the home health list and has not yet made a choice. Lynette to notify SW of choice of company tomorrow and SW to make referrals. TERESA Multani Original Note: Social Work SW received call from pt's dgt Lynette who is voicing concerns with plan for discharge on 03/27 and that family is unable to provide 24 hour care and Lynette believe that due to catheter, pt will not be able to return home. DEVAN reviewed therapy notes with Lynette including that pt is ambulating 1000 ft independently with no assistive device and ascended and descended 13 stairs. Pt is standby assist/ Supervision for all ADLs. DEVAN updated Lynette that insurance denied to cover [facility] stay. Lynette is adamant that a peer to peer be completed due to need for catheter. Physician updated and is willing to complete peer to peer on dgts behalf. DEVAN called the Peer to Peer line with [facility] insurance and left needed information to schedule the Peer to Peer. DEVAN spoke with nursing regarding catheter use and nursing states that urologist has been consulted and will be in contact with pt today. DEVAN spoke with Lynette again and informed of this. Lynette continues to feel pt cannot discharge on 03/27 as planned if he cannot urinate independently. Lynette does not feel pt can go home alone with catheter and is concerned with functional ability at home alone. DEVAN provided Lynette with information for Insurance Appeal. Lynette requesting a home evaluation for pt and SW explained that home health can be arranged for home eval, but hospital staff does not do this. Lynette requesting a walker for pt. DEVAN explained that pt has not been using a walker but Lynette feels pt will not be as confident at home and will be a fall risk. Lynette also inquiring about a shower chair and a toilet riser. DEVAN explained that family is responsible for getting these items as they are not covered by insurance. DEVAN to send list of home health provides in network with insurance and with quality ratings to Lynette. SW will arrange for a walker at discharge. SW to continue to follow for dc planning. Lynette made aware that if pt does not dc on 03/27 sleep study will be cancelled and also that if insurance does not overturn denial, additional private payment will be needed to continue stay. PLan: Discharge date is dependent on urologist and pt's need for catheter. TERESA Multani
[2024-03-25 14:47] VITALS: BP 117/72; PULSE 89; RESP 16; TEMP 35.8; O2SAT 95
--- NOTE | 2024-03-25 15:32 | NURSING ---
Ho Estes in sleep lab, unable to do sleep study on Monday03/27/24. They would be able to do the night before or after. Patient prefers 03/28/24. Discussed with patient and his daughter Lynette who was on speaker phone, they confirmed that works and Lynette could pick him up the next morning between 5:30-6:00am Monday. Called and left THERESA Estes in sleep lab confirming that patient will DC to sleep lab on 03/28/24.
--- NOTE | 2024-03-25 16:08 | CHAPLAIN ---
Type of Pastoral Visit ___ Initial Visit _x__ Follow-up Visit ___ On-call Visit ___ General Patient Visit ___ Spiritual Assessment ___ Family Conference ___ Bereavement ___ Rapid Response ___ Code Blue ___ Other (describe below) Pastoral Care Referral From _x__ Patient ___ Family ___ Nurse ___ Physician ___ Taxation Agent ___ Counter Tacker ___ Other (describe below) Sacrament/Intervention _x__ Active listening ___ Anointing ___ Pentecostal ___ Bereavement ___ Communion ___ [place] exploration ___ ___ Life review _x__ Prayer ___ Reconciliation ___ Sacrament of Sick _x__ Supportive presence ___ Wedding ___ Other (describe below) Pastoral Comments patient is quick to offer thanks for support and visit of the past and for the staff and their good care; pt speaks of improvements with hope for more; 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
[2024-03-25] MEDS: Tamsulosin HCl 0.4 MG Capsule 0.8 MG PO (18:19)
[2024-03-25 18:39] LABS: Bedside Glucose 112 mg/dL (74-106)
[2024-03-25 19:18] LABS: Vitamin B12 228 pg/mL (211-911)
[2024-03-25 20:15] VITALS: O2SAT 95
[2024-03-25] MEDS: Atorvastatin Calcium 20 MG Tablet PO (21:18)
[2024-03-25 21:31] LABS: Bedside Glucose 109 mg/dL (74-106)
[2024-03-25 23:23] VITALS: PULSE 74; O2SAT 94
--- NOTE | 2024-03-26 00:11 | NURSING ---
Pt bladder scanned @ 2100 per order for 495. Per previous RN, Dr. Alex stated if voiding trial failed reinsert Ochoa after first bladder scan if retaining. 18fr ochoa inserted. 650ml of urine drained into ochoa bag upon insertion. Pt. luanne. catheter insertion fair. Denies further intervention at this time.
[2024-03-26 06:24] LABS: Bedside Glucose 97 mg/dL (74-106)
[2024-03-26 06:27] VITALS: PULSE 68; O2SAT 94
[2024-03-26 06:52] VITALS: O2SAT 97
[2024-03-26] MEDS: metFORMIN HCl 500 MG Tablet PO ×2 (08:09→16:37)
[2024-03-26] MEDS: Finasteride 5 MG Tablet PO (08:10)
[2024-03-26] MEDS: Pantoprazole Sodium 40 MG Tablet PO (08:10)
[2024-03-26] MEDS: buPROPion (XL) 150 MG TABLET.XL PO (08:10)
[2024-03-26] MEDS: amLODIPine 10 MG Tablet PO (08:10)
[2024-03-26] MEDS: Magnesium Chloride 64 MG Delay Rel.Tablet 128 MG PO (08:10)
[2024-03-26] MEDS: Lisinopril 40 MG Tablet PO (08:10)
[2024-03-26] MEDS: Cyanocobalamin (B12) 1,000 MCG/ML Vial 1000 MCG IM (09:29)
[2024-03-26 09:34] VITALS: BMI 45.8
--- NOTE | 2024-03-26 10:00 | NURSING ---
Offered covid vaccine, VIS provided. Patient refuses at this time.
[2024-03-26 11:29] LABS: Bedside Glucose 134 mg/dL (74-106)
[2024-03-26 15:25] VITALS: BP 112/68; PULSE 92; RESP 16; TEMP 35.9; O2SAT 98
[2024-03-26] MEDS: Tamsulosin HCl 0.4 MG Capsule 0.8 MG PO (16:37)
[2024-03-26 16:59] LABS: Bedside Glucose 107 mg/dL (74-106)
[2024-03-26] MEDS: Atorvastatin Calcium 20 MG Tablet PO (21:39)
[2024-03-27 06:24] LABS: Bedside Glucose 107 mg/dL (74-106)
[2024-03-27 08:30] VITALS: O2SAT 93
[2024-03-27] MEDS: metFORMIN HCl 500 MG Tablet PO ×2 (09:00→17:08)
[2024-03-27] MEDS: amLODIPine 10 MG Tablet PO (09:01)
[2024-03-27] MEDS: Pantoprazole Sodium 40 MG Tablet PO (09:01)
[2024-03-27] MEDS: Finasteride 5 MG Tablet PO (09:01)
[2024-03-27] MEDS: Magnesium Chloride 64 MG Delay Rel.Tablet 128 MG PO (09:01)
[2024-03-27] MEDS: Lisinopril 40 MG Tablet PO (09:02)
[2024-03-27] MEDS: buPROPion (XL) 150 MG TABLET.XL PO (09:02)
[2024-03-27 09:10] VITALS: O2SAT 95
--- NOTE | 2024-03-27 13:30 | CASEMGMT ---
Addendum entered by Serena Heller 03/27/24 17:29: [facility] is not able to accept patient for services. [facility] is able to accept patient for home health services. Original Note: Social Work IDT met with patient and daughterLynette at bedside to complete care plan meeting. Discussed patient progress with therapy (PT/OT), activities, and dietary. Patient remains a cardiac diet. Patient progressing with therapy and ambulating up to 1000ft independently. Patient has been able to ambulate without equipment. Patient confirmed that he received confirmation call regarding sleep study. Patient anticipates sleep study on 03/28. Patient's daughter expressed concerns for patient utilizing walk in shower instead of tub/shower. Patient confirmed that he would like to return home with home health care services. Patient's daughterLynette provided choice home health care choice for [facility], [facility], and [facility]. [facility] is unable to accept patient. [facility] and [facility] is pending review of referral. UBALDO Escalera
[2024-03-27 16:00] VITALS: BP 118/70; PULSE 78; RESP 16; TEMP 36; O2SAT 95
[2024-03-27] MEDS: Tamsulosin HCl 0.4 MG Capsule 0.8 MG PO (17:08)
[2024-03-27 17:16] LABS: Bedside Glucose 123 mg/dL (74-106)
[2024-03-27] MEDS: Atorvastatin Calcium 20 MG Tablet PO (20:23)
[2024-03-27 20:35] VITALS: PULSE 75; RESP 16; O2SAT 98
[2024-03-28 06:37] LABS: Bedside Glucose 110 mg/dL (74-106)
[2024-03-28 07:00] VITALS: PULSE 71; RESP 18; O2SAT 96
--- NOTE | 2024-03-28 07:56 | NURSING ---
Administrative Personal Assistant Note; MDS for 03/28/2024 Complete
[2024-03-28] MEDS: Finasteride 5 MG Tablet PO (08:54)
[2024-03-28] MEDS: amLODIPine 10 MG Tablet PO (08:54)
[2024-03-28] MEDS: metFORMIN HCl 500 MG Tablet PO ×2 (08:55→17:21)
[2024-03-28] MEDS: Pantoprazole Sodium 40 MG Tablet PO (08:55)
[2024-03-28] MEDS: buPROPion (XL) 150 MG TABLET.XL PO (08:55)
[2024-03-28] MEDS: Lisinopril 40 MG Tablet PO (08:55)
[2024-03-28] MEDS: Magnesium Chloride 64 MG Delay Rel.Tablet 128 MG PO (08:55)
--- NOTE | 2024-03-28 10:45 | CASEMGMT ---
Social Work SW met with patient at bedside to review discharge plan. Patient anticipates discharge on 03/28/2024 for sleep study. Post Sleep Study patient will be discharging home with [facility] PT/OT/SN with SOC 03/29/2024. Patient complete Admit/discharge MDS. BIM and PhQ (00) UBALDO Escalera
[2024-03-28 14:56] VITALS: BP 121/66; PULSE 77; RESP 18; TEMP 35.8; O2SAT 94
[2024-03-28] MEDS: Tamsulosin HCl 0.4 MG Capsule 0.8 MG PO (17:21)
[2024-03-28 19:43] VITALS: BP 118/60; PULSE 74; RESP 18; TEMP 35.8; O2SAT 96
--- NOTE | 2024-04-03 13:48 | MDS.RN ---
Information for the MDS was obtained from review of the clinical record, interview of resident, staff, and direct observation of resident?s care.
== END 2024-03-28 19:45 | disposition home or self-care (01) | DRG 699 ==
PROVIDERS: Admitting Provider Family Medicine Geriatric Medicine; PCP Family Medicine; Visit Provider Family Medicine Geriatric Medicine
DX: N32.0 Bladder-neck obstruction (principal); N13.30 Unspecified hydronephrosis; A04.4 Other intestinal Escherichia coli infections; Z68.42 Body mass index [BMI] 45.0-49.9, adult; E11.65 Type 2 diabetes mellitus with hyperglycemia; E66.01 Morbid (severe) obesity due to excess calories; F34.1 Dysthymic disorder; I10 Essential (primary) hypertension; K21.9 Gastro-esophageal reflux disease without esophagitis; K52.9 Noninfective gastroenteritis and colitis, unspecified; G47.30 Sleep apnea, unspecified; E78.00 Pure hypercholesterolemia, unspecified; E83.42 Hypomagnesemia; N40.1 Benign prostatic hyperplasia with lower urinary tract symptoms; Z87.891 Personal history of nicotine dependence; R33.8 Other retention of urine; Z79.84 Long term (current) use of oral hypoglycemic drugs; Z79.899 Other long term (current) drug therapy
CPT/HCPCS: 36415; 80048; 80061; 82607; 82962; 85025; 94762; 97110; 97162; 97166; 97530; 97535; 97802; A4216; J3420

== ENCOUNTER → 2024-03-28 | Outpatient (CLI) | payer MEDICARE, SELFPAY | END | disposition home or self-care (01) | PROVIDERS: PCP Family Medicine; Visit Provider Internal Medicine | DX: G47.10 Hypersomnia, unspecified (principal); G47.33 Obstructive sleep apnea (adult) (pediatric) | CPT/HCPCS: 95811 ==

== ENCOUNTER → 2024-04-12 | Outpatient (CLI) | payer MEDICARE, SELFPAY | END | disposition home or self-care (01) | LOC: SL 12:34 | PROVIDERS: PCP Family Medicine; Visit Provider Physician Assistant | DX: Z46.89 Encounter for fitting and adjustment of other specified devices (principal) ==

== ENCOUNTER 2024-04-16 17:02 | Outpatient (CLI) | payer MEDICARE, SELFPAY ==
[2024-04-16 18:05] LABS: Absolute Neutrophil Count 5.1 X10^3/uL (2.0-7.7); Basophil# 0.03 X10^3/uL; Basophil% 0.4 % (0-1); Eosinophil# 0.43 X10^3/uL; Eosinophils% 5.8 % (0-5); Hematocrit 41.1 % (40-54); Lymphocyte % 17.6 % (19-41); Mean Corp Hgb Conc 31.6 g/dL (32-36); Mean Corpuscular Volume 88.6 fL (80-94); Mean Platelet Vol. 8.7 fl (6.2-12.0); Monocyte% 6.8 % (0-10); NRBC Flagged by Analyzer 0 % (0-5); Neutrophil # 5.05 X10^3/uL (2.7-7.7); Neutrophil % 68.6 % (47-70); Platelet Count 270 K/mm3 (150-450); RBC Distribution Width CV 15.4 % (11.6-14.6); RBC Distribution Width SD 50.5 fl (35.1-43.9); Red Blood Count 4.64 M/mm3 (4.6-6.2); White Blood Count 7.4 K/mm3 (4.4-11.0)
[2024-04-16 18:46] LABS: ALB/GLOB Ratio 0.8 RATIO (0.9-2.4); AST(SGOT) 11 U/L (15-37); Alanine Aminotransfer ALT/SGPT 20 U/L (16-61); Albumin, Serum 2.9 g/dL (3.2-5.0); Alkaline Phosphatase 87 U/L (45-117); Anion Gap 7 (5-15); BUN 11 mg/dL (7-18); Calcium,Total 9.1 mg/dL (8.5-10.1); Chloride 106 mmol/L (98-107); Creatinine, Serum 0.85 mg/dL (0.70-1.30); EST Glomerular Filtration Rate 95 mL/min (>60); Est Glom Filt Rate - Afr Amer 115 mL/min (>60); Globulin 3.5 g/dL (2.2-4.2); Glucose 104 mg/dL (74-106); Potassium 4.3 mmol/L (3.5-5.1); Protein, Total 6.4 g/dL (6.4-8.2); Sodium Level 137 mmol/L (136-145)
== END 2024-04-16 23:59 | disposition home or self-care (01) ==
LOC: LABSPEC 17:02
PROVIDERS: PCP Family Medicine; Referring Provider Physician Assistant; Visit Provider Physician Assistant
DX: E11.36 Type 2 diabetes mellitus with diabetic cataract (principal); Z79.899 Other long term (current) drug therapy
CPT/HCPCS: 80053; 85025

== ENCOUNTER 2024-08-05 08:30 | Outpatient (RCR) | payer MEDICARE, SELFPAY ==
--- NOTE | 2024-07-08 08:52 | HP.PTEVAL_ITS ---
Patient's Visit Information Visit Information Visit Information: RISHI STRATTON is a 73 year old M referred to Physical Therapy by TREVON Haq with a diagnosis of debility. Date of Evaluation: 07/08/24 Physical Therapist: Aries Richards, SAWT, OCS, CSCS Visit Plan Frequency: 3x /Week Duration: 4-6 Weeks Plan: 3x/week for 3-6 weeks to instruct in gym based exercises : LE strength, core strength, pulls and rows and general ex. Include nustep and rowing machine, include standing balance ex for weight shift and functional foam as safety allows and get to I with list. Careful with knee OA discomfort. Subjective Subjective: Daughters recommended he come in. He has OA in knees and is recovering from prostate surgery. had prostectomy June 14. Had meniscal surgery on both knees and has OA in both knees. Soreness is not at rest but has daily soreness. Uncomfortable 3/10 walking back to PT. Sleep is OK. Retired. Basic ADLs are done I. More laborious to descend steps to laundry room and uses banister. Worsening over time. Live alone. Hobbies: none. spends day maintaining household and watching TV. Started recently mowing lawn again and walking uneven surfaces is challening, Has to be very deliberate. Used to be a member at and did upper body and rowing machine, not sure what to continue. Pain Knees: Pain Intensity (Out of 10): 0 Pain Intensity Range: 0 and 3 Objective Objective: Walks without antalgia into PT I. Trasnfers bed and chair I. Steps with UE reciprocally but prefers to baby L knee. More discomfort L knee descending. Hip and knee and ankle aROM WFL, 0 HS 90/90 test showing good flexibility. Romberg eo easy, ec lots of sway. reflexes 1/3 patella adn [id number] Sensation LE WNL tog ross light touch. strength core 3+, hip rotation, abd, ext 3+, flexion 3+, knee flexion and ext 4- , ankles 4/5. No pain or discomfort c/o today with testing. UE AROM WFL. coordination to reciprocal toe and heel tap are good and normal. hs some trunk lean and opposite hip rotation with hip flexor testing sitting showing core weakness. Balance/Special Test Scores Functional Gait Assessment Score: 27 % Disability: 10.0000 Lower Extremity Functional Score: 37 TUG Test Time Seconds: 7 30 Second Chair Rise Test Seconds: 21 Goals Goal 1:: I appropriate core, LE adn postural and balance gym based routine to fight off effects of sedentarism. Goal Time Frame: 4-6 Weeks Goal 2:: Pt feel 505 stornger and safer with getting around Goal Time Frame: 4-6 Weeks Rehabilitation Potential Physical Therapy Diagnosis: weakness in core and sedentary lifestyle limiting QOL Rehabilitation Potential: Good Anticipated Interventions Patient/Client Instruction: Educate patient on: Condition and Plan of Care For the Purpose of:: To improve nutrient delivery to tissue, To improve muscle performance and motor function and To increase tolerance to activity/condition/position Therapeutic Exercise to Include: Strength training and Postural training For the Purpose of:: To improve nutrient delivery to tissue, To improve muscle performance and motor function and To increase tolerance to activity /condition/position Text: Thank you for the opportunity to evaluate your patient. For Medicare and Medicare HMO plans, please review the plan of care and approve it. It will need to be FAXED BACK to us at [phone] for Medicare purposes. For Medicare only, by signing this I certify the plan of care. Please let me know if there are questions or concerns regarding this plan of care. Physician Signature: Date:
--- NOTE | 2024-08-05 09:14 | HP.PTDCSUM ---
Discharge Summary D/C summary: It has been my pleasure to treat RISHI STRATTON referred by TREVON Haq, with the diagnosis of Debility for a total of 10 visit(s). Discharge Date: 08/05/24 Please see the following information for a summary of their discharge status. Subjective Subjective: Subtle improvements in daily activities. Less difficult. Knee pain is not much different, does not test self. Could continue on his own if he needed to but unknown if his motivation will continue. activities at home are I with needs. Wants do more and more lawn maintenance which is limited at this time. Limits due to knee discomfort. Pain Knees: Pain Intensity (Out of 10): 0 Overall Improvement % Improvement: 80 Objective Objective/Function: walking well with good gait pattern and no antalgia today. Admittedly poorly motivated to continue but knows what to do.Has met goals. Goals Goal 1:: I appropriate core, LE adn postural and balance gym based routine to fight off effects of sedentarism. Goal Progress: Goal Met Goal 2:: Pt feel 505 stornger and safer with getting around Goal Progress: Goal Met Plan Plan: d/c D/C Information d/c sentence: If there are questions or concerns regarding this patient's physical therapy, please feel free to call me at [phone]. Thank you for the referral of this patient. Sincerely, Aries Richards, DPT, OCS, CSCS Balance/Gait/Functional tests Balance/Special Test Scores Functional Gait Assessment Score: 27 % Disability: 10.0000 Lower Extremity Functional Score: 40 TUG Test Time Seconds: 7 Tug Test: <10 sec.=free mobile 30 Second Chair Rise Test Seconds: 21 Improvement % Improvement: 80
== END 2024-08-05 11:02 | disposition home or self-care (01) ==
LOC: PT 08:30
PROVIDERS: PCP Family Medicine; Referring Provider Physician Assistant; Visit Provider Physician Assistant
DX: R53.81 Other malaise (principal)
CPT/HCPCS: 97110; 97161